=== PATIENT | female | born 1970 | race Hispanic/Latino ===

== ENCOUNTER 2021-04-13 05:10 | Emergency (ER) | payer MEDICAID ==
--- NOTE | 2021-04-13 06:29 | Emergency Department Report ---
HPI - General Chief Complaint: Psych Time Seen by Provider: 04/13/21 06:16 - HPI HPI: Room 15 The patient is a 50-year-old female present with chief complaint of schizophrenia. Patient has a history of bipolar disorder and schizophrenia presents to the emergency department reportedly having auditory hallucinations. The patient states she came into the emergency department because she has been coughing but during the interview she is having a conversation with a person that is not there. The patient covers her mouth when she speaks to the imagin anthony person as if she is trying to conceal her conversation but she speaks in a normal tone. Patient denies suicidal homicidal ideation. Patient denies auditory or visual hallucinations. ED Past Medical Hx - Past Medical History Hx Hypertension: Yes Hx Kidney Stones: Yes Hx Psychiatric Treatment: Yes (BIPOLAR, SCHIZOPHRENIA) - Surgical History Past Surgical History?: Yes Additional Surgical History: TUBAL LIGATION - Family History Family history: no significant - Social History Smoking Status: Unknown if ever smoked Substance Use Type: None - Medications Home Medications: Home Medications Medication Instructions Recorded Confirmed Last Taken Type Depakote ER 1,000 mg PO HS 04/02/16 04/14/21 04/01/16 History Quetiapine Fumarate [SEROquel XR] 400 mg PO QDAY 04/02/16 04/14/21 04/02/16 History ED Review of Systems ROS: Stated complaint: ALTERED MENTAL STATUS Other details as noted in HPI Constitutional: no symptoms reported Eyes: denies: eye pain ENT: denies: throat pain Respiratory: cough Cardiovascular: denies: chest pain Endocrine: no symptoms reported Gastrointestinal: denies: abdominal pain Musculoskeletal: denies: back pain Neurological: denies: headache Physical Exam - Physical Exam Vital Signs: Vital Signs 04/13/21 05:23 Temperature 97.5 F L Pulse Rate 100 H Respiratory 18 Rate Blood Pressure 133/81 O2 Sat by Pulse 95 Oximetry Physical Exam: GENERAL: The patient is well-developed well-nourished female lying in chair not appearing to be in acute distress. [] HEENT: Normocephalic. Atraumatic. Extraocular motions are intact. Patient has moist mucous membranes. NECK: Supple. Trachea midline CHEST/LUNGS: Clear to auscultation. There is no respiratory distress noted. HEART/CARDIOVASCULAR: Regular. There is no tachycardia. There is no gallop rub or murmur. ABDOMEN: Abdomen is soft, nontender. Patient has normal bowel sounds. There is no abdominal distention. SKIN: There is no rash. There is no edema. There is no diaphoresis. NEURO: The patient is awake, alert, and oriented. The patient is cooperative. The patient has no focal neurologic deficits. The patient has normal speech. GCS 15 MUSCULOSKELETAL: There is no evidence of acute injury. ED Course Vital Signs 04/13/21 05:23 Temperature 97.5 F L Pulse Rate 100 H Respiratory 18 Rate Blood Pressure 133/81 O2 Sat by Pulse 95 Oximetry ED Medical Decision Making - Lab Data Result diagrams: 04/13/21 07:32 04/13/21 07:32 Laboratory Tests 04/13/21 04/13/21 04/13/21 07:32 07:32 07:32 WBC 8.0 RBC 4.43 Hgb 13.2 Hct 39.7 MCV 90 MCH 30 MCHC 33 RDW 15.0 Plt Count 229 Lymph % (Auto) 25.9 [place] % (Auto) 7.9 H Eos % (Auto) 0.2 Baso % (Auto) 0.5 Lymph # (Auto) 2.1 [place] # (Auto) 0.6 Eos # (Auto) 0.0 Baso # (Auto) 0.0 Seg Neutrophils % 65.5 Seg Neutrophils # 5.2 Sodium 136 L Potassium 4.6 Chloride 97.1 L Carbon Dioxide 28 Anion Gap 16 BUN 27 H Creatinine 0.9 Estimated GFR > 60 BUN/Creatinine Ratio 30 Glucose 87 Calcium 9.4 Salicylates < 0.3 L Acetaminophen Valproic Acid < 2.8 L Plasma/Serum Alcohol 04/13/21 04/13/21 07:32 07:32 WBC RBC Hgb Hct MCV MCH MCHC RDW Plt Count Lymph % (Auto) [place] % (Auto) Eos % (Auto) Baso % (Auto) Lymph # (Auto) [place] # (Auto) Eos # (Auto) Baso # (Auto) Seg Neutrophils % Seg Neutrophils # Sodium Potassium Chloride Carbon Dioxide Anion Gap BUN Creatinine Estimated GFR BUN/Creatinine Ratio Glucose Calcium Salicylates Acetaminophen 5.0 L Valproic Acid Plasma/Serum Alcohol < 0.01 - Radiology Data Radiology results: report reviewed (Chest x-ray), image reviewed (Chest x-ray) interpreted by me: Chest x-ray-no definite focal infiltrates, no pneumothorax [address] [place] [address] XRay Report Signed Patient: URI DENNY MR#: [id number] : 1970 Acct:[id number] Age/Sex: 50 / F ADM Date: 04/13/21 Loc: ED Attending Dr: Ordering Physician: AYDE ROCHA MD Date of Service: 04/13/21 Procedure(s): XR chest 1V ap Accession Number(s): [id number] cc: AYDE ROCHA MD Fluoro Time In Minutes: CHEST 1 VIEW 04/13/2021 5:39 AM INDICATION / CLINICAL INFORMATION: Cough. Altered mental status. COMPARISON: None available. FINDINGS: Patient is slightly rotated to the left. SUPPORT DEVICES: None. HEART / MEDIASTINUM: No significant abnormality. LUNGS / PLEURA: No significant pulmonary or pleural abnormality. No pneumothorax. ADDITIONAL FINDINGS: No significant additional findings. IMPRESSION: 1. No acute findings. Signer Name: Chasity Balderrama MD Signed: 04/13/2021 6:46 AM Workstation Name: [id number] Transcribed By: DT Dictated By: Charles Balderrama MD Electronically Authenticated By: Charles Balderrama MD Signed Date/Time: 04/13/21645 DD/ 4 TD/TT: Print Cancel - Differential Diagnosis Schizophrenia, bronchitis Critical care attestation.: If time is entered above; I have spent that time in minutes in the direct care of this critically ill patient, excluding procedure time. ED Disposition Clinical Impression: Schizophrenia Disposition: ADMITTED INPATIENT Is pt being admited?: No Does the pt Need Aspirin: No Condition: Stable Referrals: PRIMARY CARE, [Primary Care Provider] - 3-5 Days
--- NOTE | 2021-04-13 06:50 | XRay Report ---
CHEST 1 VIEW 04/13/2021 5:39 AM INDICATION / CLINICAL INFORMATION: Cough. Altered mental status. COMPARISON: None available. FINDINGS: Patient is slightly rotated to the left. SUPPORT DEVICES: None. HEART / MEDIASTINUM: No significant abnormality. LUNGS / PLEURA: No significant pulmonary or pleural abnormality. No pneumothorax. ADDITIONAL FINDINGS: No significant additional findings. IMPRESSION: 1. No acute findings. Signer Name: Chasity Balderrama MD Signed: 04/13/2021 6:46 AM Workstation Name: [id number]
[2021-04-13 07:45] LABS: Basophils % (Auto) 0.5 % (0.0-1.8); Eosinophils % (Auto) 0.2 % (0.0-4.3); Hematocrit 39.7 % (30.3-42.9); Hemoglobin 13.2 gm/dl (10.1-14.3); Lymphocytes # (Auto) 2.1 K/mm3 (1.2-5.4); Lymphocytes % (Auto) 25.9 % (13.4-35.0); Mean Corpuscular HGB Conc 33 % (30-34); Mean Corpuscular Volume 90 fl (79-97); Monocytes # (Auto) 0.6 K/mm3 (0.0-0.8); Monocytes % (Auto) 7.9 % (0.0-7.3); Platelet Count 229 K/mm3 (140-440); Red Blood Count 4.43 M/mm3 (3.65-5.03)
[2021-04-13 08:06] LABS: BUN/Creatinine Ratio 30; Blood Urea Nitrogen 27 mg/dL (7-17); Calcium 9.4 mg/dL (8.4-10.2); Hemolysis Index 2
--- NOTE | 2021-04-13 10:28 | Consultation ---
History of Present Illness - Reason for Consult Consult date: 04/13/21 Reason for consult: psychosis - History of Present Psychiatric Illness The patient was seen today. She is jumpy, and appears very anxious. She is a/o x 1. The patient endorses SI by way of cutting her wrist. The patient then becomes agitated and starts talking angrily to people who are not there. She is covering her mouth as if trying to conceal it from me. PAST PSYCHIATRIC HISTORY: Diagnoses: Bipolar, schizophrenia Suicide attempts or Self-harm behavior: Denies Prior psychiatric hospitalizations: Yes Substance Abuse history: Denies Previous psychiatric medications tried: seroquel Outpatient treatment: Denies PAST MEDICAL HISTORY: None reported or document Family Psychiatric History: None reported or documented SOCIAL HISTORY Marital Status: Single Living Arrangements: Lives alone Employment Status: Disabled Access to guns/weapons: Denies Education: History of Abuse: Denies Legal History: Denies REVIEW OF SYSTEMS Constitutional: Negative for weight loss ENT: Negative for stridor Respiratory: Negative for cough or hemoptysis All other systems reviewed and are negative MENTAL STATUS EXAMINATION General Appearance and Behavior: Age appropriate, good hygiene, wearing appropriate clothes. anxious, cooperative Cooperation: cooperative Psychomotor Behavior: Psychomotor normal Mood: depressed Affect and affective range: congruent with stated mood Thought Process: illogical Thought Content: hallucinations, responding to internal stimuli Speech: Normal volume, Regular rate and rhythm, Suicidal Ideation: yes Homicidal Ideation: Denies Hallucinations: Auditory Delusions: none elicited Impulse Control: impaired Insight and Judgment: Limited Memory: limited Attention: Attentive Orientation: alert and oriented Assessment and Plan (1) Schizophrenia Treatment Plan [address] 125mg po BID Abilify 5mg po daily Vistaril 25mg po BID Sitter: per primary Medical: per primary Disposition: Recommend acute psychiatric inpatient treatment Will follow. Thanks for this consult. Case staffed with Dr. Sullivan Medications and Allergies Allergies Allergy/AdvReac Type Severity Reaction Status Date / Time acetaminophen [From Percocet] Allergy Unknown Verified 06/15/15 17:29 benztropine mesylate Allergy Unknown Verified 06/15/15 17:29 [From Cogentin] haloperidol [From Haldol] Allergy Unknown Verified 06/15/15 17:29 haloperidol lactate Allergy Unknown Verified 06/15/15 17:29 [From Haldol] oxycodone HCl [From Percocet] Allergy Unknown Verified 06/15/15 17:29 Home Medications Medication Instructions Recorded Confirmed Last Taken Type Depakote ER 1,000 mg PO HS 04/02/16 04/18/16 04/01/16 History Quetiapine Fumarate [SEROquel XR] 400 mg PO QDAY 04/02/16 04/18/16 04/02/16 History Mental Status Exam - Vital signs Last Vital Signs Temp 98.6 F 04/13/21 08:28 Pulse 80 04/13/21 08:28 Resp 18 04/13/21 08:28 BP 106/67 04/13/21 08:28 Pulse Ox 96 04/13/21 08:28 Results Result Diagrams: 04/13/21 07:32 04/13/21 07:32 Abnormal lab results 04/13/21 04/13/21 04/13/21 Range/Units 07:32 07:32 07:32 [place] % (Auto) 7.9 H (0.0-7.3) % Sodium 136 L (137-145) mmol/L Chloride 97.1 L (98-107) mmol/L BUN 27 H (7-17) mg/dL Salicylates < 0.3 L (2.8-20.0) mg/dL Acetaminophen (10.0-30.0) ug/mL Valproic Acid < 2.8 L (50-100) ug/mL 04/13/21 Range/Units 07:32 [place] % (Auto) (0.0-7.3) % Sodium (137-145) mmol/L Chloride (98-107) mmol/L BUN (7-17) mg/dL Salicylates (2.8-20.0) mg/dL Acetaminophen 5.0 L (10.0-30.0) ug/mL Valproic Acid (50-100) ug/mL All other labs normal.
[2021-04-13] MEDS ORDERED: ARIPiprazole 5 MG TAB PO SCH (11:00)
[2021-04-13] MEDS: DIVALPROEX DR 125 MG TAB PO SCH ×2 (13:17→22:45)
[2021-04-13] MEDS: hydrOXYzine PAMOATE 25 MG CAP PO SCH ×2 (13:17→22:46)
[2021-04-13 16:50] LABS: Bilirubin,Urine NEG (Negative); Blood,Urine NEG (Negative); Color,Urine Yellow (Yellow); Mucus,Urine FEW /HPF; Protein,Urine <15 mg/dL mg/dL (Negative); Urobilinogen,Urine < 2.0 mg/dL (<2.0)
[2021-04-13 16:57] LABS: Amphetamine Screen,Urine Negative; Benzodiazepines Screen,Urine Negative; Cannabinoid Screen,Urine Negative; Cocaine Screen,Urine Negative; Methadone Screen,Urine Negative; Opiate Screen,Urine Negative
[2021-04-13 19:59] VITALS: BP 116/68
== END 2021-04-13 23:14 | disposition admitted as inpatient to this hospital (09) ==
LOC: EEVIPCON 05:10 → ED 05:10
DX: F20.9 Schizophrenia, unspecified (principal); I10 Essential (primary) hypertension; Z87.442 Personal history of urinary calculi; Z20.822 Contact with and (suspected) exposure to COVID-19; Z79.899 Other long term (current) drug therapy
CPT/HCPCS: 36415; 71045; 80048; 80164; 80307; 81001; 85025; 99285; Q0177; U0003; 80320; G0480

== ENCOUNTER 2021-04-13 15:02 | Inpatient (IN) | payer MEDICAID ==
[2021-04-14 09:26] LABS: Eosinophils # (Auto) 0.1 K/mm3 (0.0-0.4); Eosinophils % (Auto) 1.8 % (0.0-4.3); Hematocrit 37.8 % (30.3-42.9); Hemoglobin 12.7 gm/dl (10.1-14.3); Lymphocytes # (Auto) 1.8 K/mm3 (1.2-5.4); Lymphocytes % (Auto) 50.6 % (13.4-35.0); Mean Corpuscular HGB Conc 34 % (30-34); Mean Corpuscular Volume 90 fl (79-97); Monocytes # (Auto) 0.3 K/mm3 (0.0-0.8); Platelet Count 197 K/mm3 (140-440); Red Blood Count 4.19 M/mm3 (3.65-5.03); Red Cell Distribution Width 14.7 % (13.2-15.2)
[2021-04-14 09:48] LABS: Alanine Aminotransferase 9 units/L (7-56); Albumin 3.9 g/dL (3.9-5); BUN/Creatinine Ratio 26; Blood Urea Nitrogen 21 mg/dL (7-17); Calcium 8.8 mg/dL (8.4-10.2); Chol/HDL Ratio 2.36 %; HDL Cholesterol 63 mg/dL (40-59); Hemolysis Index 11; LDL Cholesterol,Direct 75 mg/dL (50-130)
--- NOTE | 2021-04-14 12:11 | Consultation ---
History of Present Illness - Reason for Consult Consult date: 04/14/21 Medical management Requesting physician: APURVA MANDUJANO - History of Present Illness 50 YO Female with DM, Psychosis, LICHA, MDD admitted to [facility] for psychiatric stabilization. Consult placed by Dr. Mandujano for medical management. Patient seen and evaluated in the recreation room. Patient denies fever, chills, chest pain, palpitation, productive cough, skin rash, recent ill contact, or known exposure to COVID-19. No reported nursing events. Patient cooperative. Past History Past Medical History: diabetes, other (See HPI) Past Surgical History: No surgical history, Other (Reviewed) Social history: single. denies: smoking, alcohol abuse Family history: diabetes, hypertension Medications and Allergies Allergies Allergy/AdvReac Type Severity Reaction Status Date / Time acetaminophen [From Percocet] Allergy Unknown Verified 06/15/15 17:29 benztropine mesylate Allergy Unknown Verified 06/15/15 17:29 [From Cogentin] haloperidol [From Haldol] Allergy Unknown Verified 06/15/15 17:29 haloperidol lactate Allergy Unknown Verified 06/15/15 17:29 [From Haldol] oxycodone HCl [From Percocet] Allergy Unknown Verified 06/15/15 17:29 Home Medications Medication Instructions Recorded Confirmed Last Taken Type Depakote ER 1,000 mg PO HS 04/02/16 04/14/21 04/01/16 History Quetiapine Fumarate [SEROquel XR] 400 mg PO QDAY 04/02/16 04/14/21 04/02/16 History Review of Systems Constitutional: no weight gain, no fever, no chills Ears, nose, mouth and throat: no ear pain, no tinnitis, no nasal congestion Breasts: no change in shape, no mass Cardiovascular: no chest pain, no orthopnea, no palpitations, no rapid/irregular heart beat, no syncope Respiratory: no cough, no excessive sputum Gastrointestinal: no nausea, no diarrhea, no constipation Genitourinary Female: no pelvic pain, no flank pain, no dysuria, no urinary frequency, no stress incontinence Rectal: no pain, no incontinence, no bleeding Musculoskeletal: no neck stiffness, no shooting arm pain, no low back pain, no shooting leg pain Integumentary: no rash, no redness, no wounds Neurological: no head injury, no paralysis, no parathesias, no numbness, no seizures, no tremors Psychiatric: anxiety, depression, no change in sleep habits, no sleep disturbances, no insomnia Endocrine: no cold intolerance, no polyphagia, no polydipsia Hematologic/Lymphatic: no easy bruising, no easy bleeding, no lymphadenopathy, no lymphedema Allergic/Immunologic: no allergic rhinitis, no wheezing, no anaphylaxis, no a ngioedema Exam - Constitutional General appearance: Present: no acute distress, well-nourished - EENT Eyes: Present: PERRL ENT: hearing intact, clear oral mucosa - Neck Neck: Present: supple, normal ROM - Respiratory Respiratory effort: normal Respiratory: bilateral: CTA - Cardiovascular Heart Sounds: Present: S1 & S2. Absent: rub, click - Extremities Extremities: pulses symmetrical, No edema Peripheral Pulses: within normal limits - Abdominal General gastrointestinal: Present: soft, non-tender, non-distended, normal bowel sounds Female genitourinary: Present: normal - Integumentary Integumentary: Present: clear, warm, dry - Musculoskeletal Musculoskeletal: gait normal, strength equal bilaterally - Psychiatric Psychiatric: appropriate mood/affect, intact judgment & insight - Neurologic Neurologic: CNII-XII intact, moves all extremities Results - Labs CBC & Chem 7: 04/14/21 08:44 04/14/21 08:44 Labs: Abnormal lab results 04/14/21 04/14/21 Range/Units 08:44 08:44 WBC 3.6 L (4.5-11.0) K/mm3 Lymph % (Auto) 50.6 H (13.4-35.0) % Seg Neutrophils % 39.6 L (40.0-70.0) % Seg Neutrophils # 1.4 L (1.8-7.7) K/mm3 BUN 21 H (7-17) mg/dL Glucose 112 H (65-100) mg/dL HDL Cholesterol 63 H (40-59) mg/dL Assessment and Plan - Patient Problems (1) Diabetes Current Visit: Yes Status: Acute Plan to address problem: Consistent carbohydrate diet, patient is normoglycemic at this time. (2) Anxiety Current Visit: Yes Status: Acute Plan to address problem: Supportive care, benzodiazepine therapy as clinically indicated. (3) Depression Current Visit: Yes Status: Acute Plan to address problem: Supportive care, continue medical management. (4) Schizophrenia Current Visit: No Status: Acute Plan to address problem: Continue medical management. (5) Malnutrition Current Visit: Yes Status: Acute Qualifiers: Protein-calorie malnutrition severity: moderate Plan to address problem: Increase protein intake, dietary supplementation. (6) Advance care planning Current Visit: Yes Status: Acute Plan to address problem: Disease education conducted, care plan discussed, diagnoses discussed, prognosis discussed, patient full code, patient knowledges understanding agreement with care plan, patient counseled regarding increase protein intake. +30 minutes.
--- NOTE | 2021-04-14 12:58 | History and Physical Report ---
GP History & Physical - History of Present Illness Date of admission: 04/13/21 Date of Examination: 04/14/21 Reason for Admission: Danger to self, Failure of Outpatient Treatment, Severe anxiety/depression History of Present Illness: Trinidad Denny is a patient I first rounded on yesterday in the ER. During that time the patient was jumpy, and appears very anxious. She is a/o x 1. The patient endorses SI by way of cutting her wrist. The patient then becomes agitated and starts talking angrily to people who are not there. She is covering her mouth as if trying to conceal it from me. Today, during the patient's evaluation she is lying in bed. She says she still hearing voices and that's why she's lying in bed. The patient tells me that she only takes 600mg of Seroquel and it works for her but she had been off of them. She then turns around and starts fussing at someone who's not there. She denies SI/HI. But states the voices are telling her to hurt herself. PAST PSYCHIATRIC HISTORY: Diagnoses: Bipolar, schizophrenia Suicide attempts or Self-harm behavior: Denies Prior psychiatric hospitalizations: Yes Substance Abuse history: Denies Previous psychiatric medications tried: seroquel Outpatient treatment: Denies PAST MEDICAL HISTORY: None reported or document Family Psychiatric History: None reported or documented SOCIAL HISTORY Marital Status: Single Living Arrangements: Lives alone Employment Status: Disabled Access to guns/weapons: Denies Education: History of Abuse: Denies Legal History: Denies REVIEW OF SYSTEMS Constitutional: Negative for weight loss ENT: Negative for stridor Respiratory: Negative for cough or hemoptysis All other systems reviewed and are negative MENTAL STATUS EXAMINATION General Appearance and Behavior: Age appropriate, good hygiene, wearing appropriate clothes. anxious, cooperative Cooperation: cooperative Psychomotor Behavior: Psychomotor normal Mood: depressed Affect and affective range: congruent with stated mood Thought Process: illogical Thought Content: hallucinations, responding to internal stimuli Speech: Normal volume, Regular rate and rhythm, Suicidal Ideation: yes Homicidal Ideation: Denies Hallucinations: Auditory Delusions: none elicited Impulse Control: impaired Insight and Judgment: Limited Memory: limited Attention: Attentive Orientation: alert and oriented Assessment and Plan (1) Schizophrenia Treatment Plan Patient admitted for inpatient psychiatric evaluation, medication adjustment and close monitoring The patient's behavior, mood, sleep and appetite will be closely monitored. Patient enrolled in individual and group therapeutic sessions and encouraged to attend. Patient provided with a safe and structured environment. Patient's physical health needs will be addressed by the Hospitalist. Hosp italist Consulted Labs including CBC, CMP, Lipid profile and Hemoglobin A1C levels ordered for baseline reference Social Assessment will be completed and the Spraying Machine Operator will work with patient and family to ensure a suitable and safe disposition Medication adjustment will be made as clinically indicated Restarted home medications Usual Wellness Buddhist/Preservation: - Start Trazodone 50 mg po QHS & 50 mg po QHS PRN between 10 PM & 2 AM for insomnia - Start Melatonin 5 mg po QHS to promote circadian rhythm The patient agreed on the treatment plan, understood the risk, benefit, alternative treatment, potential consequence of no treatment, and gave informed consent. Estimated days:4 Post hospital care: primary care provider, psychiatric provider Case staffed with Dr. Sullivan Legal Status: Voluntary Reaction to Hospitalization: Accepting Medications and Allergies Allergies Allergy/AdvReac Type Severity Reaction Status Date / Time acetaminophen [From Percocet] Allergy Unknown Verified 06/15/15 17:29 benztropine mesylate Allergy Unknown Verified 06/15/15 17:29 [From Cogentin] haloperidol [From Haldol] Allergy Unknown Verified 06/15/15 17:29 haloperidol lactate Allergy Unknown Verified 06/15/15 17:29 [From Haldol] oxycodone HCl [From Percocet] Allergy Unknown Verified 06/15/15 17:29 Home Medications Medication Instructions Recorded Confirmed Last Taken Type Depakote ER 1,000 mg PO HS 04/02/16 04/14/21 04/01/16 History Quetiapine Fumarate [SEROquel XR] 400 mg PO QDAY 04/02/16 04/14/21 04/02/16 History Results - Results Labs/Vitals: Laboratory Last Values WBC 3.6 K/mm3 (4.5-11.0) L 04/14/21 08:44 RBC 4.19 M/mm3 (3.65-5.03) 04/14/21 08:44 Hgb 12.7 gm/dl (10.1-14.3) 04/14/21 08:44 Hct 37.8 % (30.3-42.9) 04/14/21 08:44 MCV 90 fl (79-97) 04/14/21 08:44 MCH 30 pg (28-32) 04/14/21 08:44 MCHC 34 % (30-34) 04/14/21 08:44 RDW 14.7 % (13.2-15.2) 04/14/21 08:44 Plt Count 197 K/mm3 (140-440) 04/14/21 08:44 Lymph % (Auto) 50.6 % (13.4-35.0) H 04/14/21 08:44 [place] % (Auto) 7.0 % (0.0-7.3) 04/14/21 08:44 Eos % (Auto) 1.8 % (0.0-4.3) 04/14/21 08:44 Baso % (Auto) 1.0 % (0.0-1.8) 04/14/21 08:44 Lymph # (Auto) 1.8 K/mm3 (1.2-5.4) 04/14/21 08:44 [place] # (Auto) 0.3 K/mm3 (0.0-0.8) 04/14/21 08:44 Eos # (Auto) 0.1 K/mm3 (0.0-0.4) 04/14/21 08:44 Baso # (Auto) 0.0 K/mm3 (0.0-0.1) 04/14/21 08:44 Seg Neutrophils % 39.6 % (40.0-70.0) L 04/14/21 08:44 Seg Neutrophils # 1.4 K/mm3 (1.8-7.7) L 04/14/21 08:44 Sodium 141 mmol/L (137-145) 04/14/21 08:44 Potassium 4.1 mmol/L (3.6-5.0) 04/14/21 08:44 Chloride 103.2 mmol/L (98-107) 04/14/21 08:44 Carbon Dioxide 27 mmol/L (22-30) 04/14/21 08:44 Anion Gap 15 mmol/L 04/14/21 08:44 BUN 21 mg/dL (7-17) H 04/14/21 08:44 Creatinine 0.8 mg/dL (0.6-1.2) 04/14/21 08:44 Estimated GFR > 60 ml/min 04/14/21 08:44 BUN/Creatinine Ratio 26 % 04/14/21 08:44 Glucose 112 mg/dL (65-100) H 04/14/21 08:44 POC Glucose 76 mg/dL (70-105) 04/14/21 11:41 Hemoglobin A1c 5.2 % (4-6) 04/14/21 08:44 Calcium 8.8 mg/dL (8.4-10.2) 04/14/21 08:44 Total Bilirubin 0.30 mg/dL (0.1-1.2) 04/14/21 08:44 AST 18 units/L (5-40) 04/14/21 08:44 ALT 9 units/L (7-56) 04/14/21 08:44 Alkaline Phosphatase 69 units/L (35-129) 04/14/21 08:44 Total Protein 6.5 g/dL (6.3-8.2) 04/14/21 08:44 Albumin 3.9 g/dL (3.9-5) 04/14/21 08:44 Albumin/Globulin Ratio 1.5 % 04/14/21 08:44 Triglycerides 60 mg/dL (2-149) 04/14/21 08:44 Cholesterol 149 mg/dL (50-199) 04/14/21 08:44 LDL Cholesterol Direct 75 mg/dL (50-130) 04/14/21 08:44 HDL Cholesterol 63 mg/dL (40-59) H 04/14/21 08:44 Cholesterol/HDL Ratio 2.36 % 04/14/21 08:44 TSH 0.871 mlU/mL (0.270-4.200) 04/14/21 08:44 Physician Certification - Certification Statement Physician Certification Statement: This is an acknowledgement statement that TRINIDAD DENNY is a 50 year old F who requires inpatient psychiatric admission for treatment which could reasonably be expected to improve the patient's condition for Estimated period of time patient will need to remain in the hospital: [ ] Plan for post-hospital care: [ ]
[2021-04-14] MEDS ORDERED: QUETIAPINE FUMARATE 400 MG PO SCH (13:15)
[2021-04-14] MEDS: QUEtiapine 200 MG TAB PO SCH (21:03)
[2021-04-14] MEDS: DIVALPROEX ER 500 MG TAB PO SCH (21:04)
[2021-04-14] MEDS ORDERED: DEPAKOTE PO SCH (22:00)
[2021-04-15] MEDS: QUEtiapine 200 MG TAB PO SCH (09:00)
--- NOTE | 2021-04-15 09:23 | Progress Note ---
Subjective Date of service: 04/15/21 Principal diagnosis: schizophrenia Subjective Comment: The patient was seen today. She says she's hearing voices telling her to kill herself. She says "that's why I stay in my room." The patient then starts angrily speaking to someone who's not there. She says "no, you did not. You didn't." REVIEW OF SYSTEMS Constitutional: Negative for weight loss ENT: Negative for stridor Respiratory: Negative for cough or hemoptysis All other systems reviewed and are negative MENTAL STATUS EXAMINATION General Appearance and Behavior: Age appropriate, good hygiene, wearing appropriate clothes. anxious, cooperative Cooperation: cooperative Psychomotor Behavior: Psychomotor normal Mood: depressed Affect and affective range: congruent with stated mood Thought Process: illogical Thought Content: hallucinations, responding to internal stimuli Speech: Normal volume, Regular rate and rhythm, Suicidal Ideation: yes Homicidal Ideation: Denies Hallucinations: Auditory Delusions: none elicited Impulse Control: impaired Insight and Judgment: Limited Memory: limited Attention: Attentive Orientation: alert and oriented Assessment and Plan (1) Schizophrenia Treatment Plan Patient admitted for inpatient psychiatric evaluation, medication adjustment and close monitoring The patient's behavior, mood, sleep and appetite will be closely monitored. Patient enrolled in individual and group therapeutic sessions and encouraged to attend. Patient provided with a safe and structured environment. Patient's physical health needs will be addressed by the Hospitalist. Hospitalist Consulted Labs including CBC, CMP, Lipid profile and Hemoglobin A1C levels ordered for baseline reference Social Assessment will be completed and the Director Housekeeping will work with patient and family to ensure a suitable and safe disposition Medication adjustment will be made as clinically indicated Started Seroquel 100mg qam in addition to night dose Usual Wellness Mu-Ism/Preservation: - Start Trazodone 50 mg po QHS & 50 mg po QHS PRN between 10 PM & 2 AM for insomnia - Start Melatonin 5 mg po QHS to promote circadian rhythm The patient agreed on the treatment plan, understood the risk, benefit, alternative treatment, potential consequence of no treatment, and gave informed consent. Estimated days:4 Post hospital care: primary care provider, psychiatric provider Case staffed with Dr. Sullivan Medications and Allergies Allergies Allergy/AdvReac Type Severity Reaction Status Date / Time acetaminophen [From Percocet] Allergy Unknown Verified 06/15/15 17:29 benztropine mesylate Allergy Unknown Verified 06/15/15 17:29 [From Cogentin] haloperidol [From Haldol] Allergy Unknown Verified 06/15/15 17:29 haloperidol lactate Allergy Unknown Verified 06/15/15 17:29 [From Haldol] oxycodone HCl [From Percocet] Allergy Unknown Verified 06/15/15 17:29 Home Medications Medication Instructions Recorded Confirmed Last Taken Type Depakote ER 1,000 mg PO HS 04/02/16 04/14/21 04/01/16 History Quetiapine Fumarate [SEROquel XR] 400 mg PO QDAY 04/02/16 04/14/21 04/02/16 History Active Meds: Active Medications Divalproex Sodium (Divalproex Er 500 Mg Tab) 1,000 mg PO HS [facility] Last Admin: 04/14/21 21:04 Dose: 1,000 mg Documented by: Quetiapine Fumarate (Quetiapine 200 Mg Tab) 200 mg PO BID MICHELLE Last Admin: 04/14/21 21:03 Dose: 200 mg Documented by: Results - Results Labs/Vitals: Laboratory Last Values WBC 3.6 K/mm3 (4.5-11.0) L 04/14/21 08:44 RBC 4.19 M/mm3 (3.65-5.03) 04/14/21 08:44 Hgb 12.7 gm/dl (10.1-14.3) 04/14/21 08:44 Hct 37.8 % (30.3-42.9) 04/14/21 08:44 MCV 90 fl (79-97) 04/14/21 08:44 MCH 30 pg (28-32) 04/14/21 08:44 MCHC 34 % (30-34) 04/14/21 08:44 RDW 14.7 % (13.2-15.2) 04/14/21 08:44 Plt Count 197 K/mm3 (140-440) 04/14/21 08:44 Lymph % (Auto) 50.6 % (13.4-35.0) H 04/14/21 08:44 [place] % (Auto) 7.0 % (0.0-7.3) 04/14/21 08:44 Eos % (Auto) 1.8 % (0.0-4.3) 04/14/21 08:44 Baso % (Auto) 1.0 % (0.0-1.8) 04/14/21 08:44 Lymph # (Auto) 1.8 K/mm3 (1.2-5.4) 04/14/21 08:44 Trinity # (Auto) 0.3 K/mm3 (0.0-0.8) 04/14/21 08:44 Eos # (Auto) 0.1 K/mm3 (0.0-0.4) 04/14/21 08:44 Baso # (Auto) 0.0 K/mm3 (0.0-0.1) 04/14/21 08:44 Seg Neutrophils % 39.6 % (40.0-70.0) L 04/14/21 08:44 Seg Neutrophils # 1.4 K/mm3 (1.8-7.7) L 04/14/21 08:44 Sodium 141 mmol/L (137-145) 04/14/21 08:44 Potassium 4.1 mmol/L (3.6-5.0) 04/14/21 08:44 Chloride 103.2 mmol/L (98-107) 04/14/21 08:44 Carbon Dioxide 27 mmol/L (22-30) 04/14/21 08:44 Anion Gap 15 mmol/L 04/14/21 08:44 BUN 21 mg/dL (7-17) H 04/14/21 08:44 Creatinine 0.8 mg/dL (0.6-1.2) 04/14/21 08:44 Estimated GFR > 60 ml/min 04/14/21 08:44 BUN/Creatinine Ratio 26 % 04/14/21 08:44 Glucose 112 mg/dL (65-100) H 04/14/21 08:44 POC Glucose 91 mg/dL (70-105) 04/14/21 20:05 Hemoglobin A1c 5.2 % (4-6) 04/14/21 08:44 Calcium 8.8 mg/dL (8.4-10.2) 04/14/21 08:44 Total Bilirubin 0.30 mg/dL (0.1-1.2) 04/14/21 08:44 AST 18 units/L (5-40) 04/14/21 08:44 ALT 9 units/L (7-56) 04/14/21 08:44 Alkaline Phosphatase 69 units/L (35-129) 04/14/21 08:44 Total Protein 6.5 g/dL (6.3-8.2) 04/14/21 08:44 Albumin 3.9 g/dL (3.9-5) 04/14/21 08:44 Albumin/Globulin Ratio 1.5 % 04/14/21 08:44 Triglycerides 60 mg/dL (2-149) 04/14/21 08:44 Cholesterol 149 mg/dL (50-199) 04/14/21 08:44 LDL Cholesterol Direct 75 mg/dL (50-130) 04/14/21 08:44 HDL Cholesterol 63 mg/dL (40-59) H 04/14/21 08:44 Cholesterol/HDL Ratio 2.36 % 04/14/21 08:44 TSH 0.871 mlU/mL (0.270-4.200) 04/14/21 08:44 Last Vital Signs Temp 97.9 F 04/14/21 22:00 Pulse 63 04/14/21 22:00 Resp 16 04/14/21 22:00 BP 143/64 04/14/21 22:00 Pulse Ox 98 04/14/21 22:00
[2021-04-15] MEDS: QUEtiapine 100 MG TAB PO SCH ×2 (12:44→21:02)
--- NOTE | 2021-04-15 19:36 | Progress Note ---
Assessment and Plan - Patient Problems (1) Diabetes Current Visit: Yes Status: Acute Plan to address problem: Consistent carbohydrate diet, patient is normoglycemic at this time. (2) Anxiety Current Visit: Yes Status: Acute Plan to address problem: Supportive care, benzodiazepine therapy as clinically indicated. (3) Depression Current Visit: Yes Status: Acute Plan to address problem: Supportive care, continue medical management. (4) Schizophrenia Current Visit: No Status: Acute Plan to address problem: Continue medical management. (5) Malnutrition Current Visit: Yes Status: Acute Qualifiers: Protein-calorie malnutrition severity: moderate Plan to address problem: Increase protein intake, dietary supplementation. (6) Advance care planning Current Visit: Yes Status: Acute Plan to address problem: Disease education conducted, care plan discussed, diagnoses discussed, prognosis discussed, patient full code, patient knowledges understanding agreement with care plan, patient counseled regarding increase protein intake. +30 minutes. History Interval history: 50 YO Female with DM, Psychosis, LICHA, MDD admitted to [facility] for psychiatric stabilization. Patient seen and evaluated in the recreation room. Patient denies pain. No reported nursing events. Patient cooperative. Hospitalist Physical - Constitutional Vitals: Temp Pulse Resp BP Pulse Ox 97.9 F 63 16 143/64 98 04/14/21 22:00 04/14/21 22:00 04/14/21 22:00 04/14/21 22:00 04/14/21 22:00 General appearance: Present: no acute distress, well-nourished - EENT Eyes: Present: PERRL ENT: hearing intact - Neck Neck: Present: supple - Respiratory Respiratory effort: normal Respiratory: bilateral: CTA - Cardiovascular Rhythm: regular Heart Sounds: Present: S1 & S2 - Extremities Extremities: no ischemia Peripheral Pulses: within normal limits - Abdominal General gastrointestinal: soft, non-tender, non-distended - Integumentary Integumentary: Present: clear, dry - Psychiatric Psychiatric: cooperative - Neurologic Neurologic: CNII-XII intact Results - Labs CBC & Chem 7: 04/14/21 08:44 04/14/21 08:44 Labs: Laboratory Last Values WBC 3.6 K/mm3 (4.5-11.0) L 04/14/21 08:44 RBC 4.19 M/mm3 (3.65-5.03) 04/14/21 08:44 Hgb 12.7 gm/dl (10.1-14.3) 04/14/21 08:44 Hct 37.8 % (30.3-42.9) 04/14/21 08:44 MCV 90 fl (79-97) 04/14/21 08:44 MCH 30 pg (28-32) 04/14/21 08:44 MCHC 34 % (30-34) 04/14/21 08:44 RDW 14.7 % (13.2-15.2) 04/14/21 08:44 Plt Count 197 K/mm3 (140-440) 04/14/21 08:44 Lymph % (Auto) 50.6 % (13.4-35.0) H 04/14/21 08:44 Mower % (Auto) 7.0 % (0.0-7.3) 04/14/21 08:44 Eos % (Auto) 1.8 % (0.0-4.3) 04/14/21 08:44 Baso % (Auto) 1.0 % (0.0-1.8) 04/14/21 08:44 Lymph # (Auto) 1.8 K/mm3 (1.2-5.4) 04/14/21 08:44 Mower # (Auto) 0.3 K/mm3 (0.0-0.8) 04/14/21 08:44 Eos # (Auto) 0.1 K/mm3 (0.0-0.4) 04/14/21 08:44 Baso # (Auto) 0.0 K/mm3 (0.0-0.1) 04/14/21 08:44 Seg Neutrophils % 39.6 % (40.0-70.0) L 04/14/21 08:44 Seg Neutrophils # 1.4 K/mm3 (1.8-7.7) L 04/14/21 08:44 Sodium 141 mmol/L (137-145) 04/14/21 08:44 Potassium 4.1 mmol/L (3.6-5.0) 04/14/21 08:44 Chloride 103.2 mmol/L (98-107) 04/14/21 08:44 Carbon Dioxide 27 mmol/L (22-30) 04/14/21 08:44 Anion Gap 15 mmol/L 04/14/21 08:44 BUN 21 mg/dL (7-17) H 04/14/21 08:44 Creatinine 0.8 mg/dL (0.6-1.2) 04/14/21 08:44 Estimated GFR > 60 ml/min 04/14/21 08:44 BUN/Creatinine Ratio 26 % 04/14/21 08:44 Glucose 112 mg/dL (65-100) H 04/14/21 08:44 POC Glucose 91 mg/dL (70-105) 04/14/21 20:05 Hemoglobin A1c 5.2 % (4-6) 04/14/21 08:44 Calcium 8.8 mg/dL (8.4-10.2) 04/14/21 08:44 Total Bilirubin 0.30 mg/dL (0.1-1.2) 04/14/21 08:44 AST 18 units/L (5-40) 04/14/21 08:44 ALT 9 units/L (7-56) 04/14/21 08:44 Alkaline Phosphatase 69 units/L (35-129) 04/14/21 08:44 Total Protein 6.5 g/dL (6.3-8.2) 04/14/21 08:44 Albumin 3.9 g/dL (3.9-5) 04/14/21 08:44 Albumin/Globulin Ratio 1.5 % 04/14/21 08:44 Triglycerides 60 mg/dL (2-149) 04/14/21 08:44 Cholesterol 149 mg/dL (50-199) 04/14/21 08:44 LDL Cholesterol Direct 75 mg/dL (50-130) 04/14/21 08:44 HDL Cholesterol 63 mg/dL (40-59) H 04/14/21 08:44 Cholesterol/HDL Ratio 2.36 % 04/14/21 08:44 TSH 0.871 mlU/mL (0.270-4.200) 04/14/21 08:44 Lopez/IV: Voiding Method Toilet Active Medications - Current Medications Current Medications: Generic Name Dose Route Start Last Admin Trade Name Freq PRN Reason Stop Dose Admin Divalproex Sodium 1,000 mg 04/14/21 22:00 04/14/21 21:04 Divalproex Er 500 Mg Tab PO 1,000 mg HS MICHELLE Administration Quetiapine Fumarate 100 mg 04/15/21 10:00 04/15/21 12:44 Quetiapine 100 Mg Tab PO 100 mg QAM MICHELLE Administration Quetiapine Fumarate 300 mg 04/15/21 22:00 Quetiapine 100 Mg Tab PO BID MICHELLE Nutrition/Malnutrition Assess - Dietary Evaluation Nutrition/Malnutrition Findings: Nutrition Notes Start: 04/14/21 12:47 Freq: Status: Active Protocol: Document 04/14/21 12:47 GB (Rec: 04/14/21 12:57 GB [email or web address]) Nutrition Notes Need for Assessment generated from: Low BMI Initial or Follow up Assessment Other Pertinent Diagnosis protective oversight adjustment & stabilization of meds/mood/behavior Current Diet Regular Labs/Tests 04/14: glucose 112, BUN 21 Pertinent Medications no meds listed at time of assessment Height 5 ft 3 in Weight 47.2 kg [place] Body Weight (kg) 52.27 BMI 18.4 Intake Prior to Admission Good Weight change and time frame admit weight recorded. NO reported significant weight changes upon admission. Weight Status Appropriate Subjective/Other Information Pt seen for low BMI 18.4. She is 90% IBW. no reported weight loss. PO intake recorded at 100%, no chewing or swallowing concerns indicated Percent of energy/protein needs met: With current PO intake 75% or greater of minimal EEN are met Burn Absent Trauma Absent GI Symptoms None Food Allergy No Skin Integrity/Comment no complications reported Current % PO Good (75-100%) Minimum of two criteria No #1 Nutrition Diagnosis No nutrition diagnosis at this time Is patient on ventilator? No Is Patient Ambulatory and/or Out of Bed Yes REE-([facility]-ambulatory/OOB) [ [id number] [id number]] Calculation Used for Recommendations [facility] Additional Notes Protein: 1-1.2 g/kg at 47k-57g Fluids: 1 ml/kcal or per MD Nutrition Intervention Change Diet Order: continue Nutrition Support: n/a Add Supplement/Snack (indicate name/kcal PRN /protein ) Goal #1 PO intake of meals to continue at 75% or greater daily for LOS Revisit per MD consult or patient Sign Off request:
[2021-04-15] MEDS: DIVALPROEX ER 500 MG TAB PO SCH (21:01)
--- NOTE | 2021-04-16 07:41 | Progress Note ---
Subjective Date of service: 04/16/21 Principal diagnosis: schizophrenia Subjective Comment: 04/16/21: The patient presents with psychosis, she was seen responding to internal stimuli. REVIEW OF SYSTEMS Constitutional: Negative for weight loss ENT: Negative for stridor Respiratory: Negative for cough or hemoptysis All other systems reviewed and are negative MENTAL STATUS EXAMINATION General Appearance and Behavior: Age appropriate, good hygiene, wearing appropriate clothes. anxious, cooperative Cooperation: cooperative Psychomotor Behavior: Psychomotor normal Mood: Hallucinations Affect and affective range: congruent with stated mood Thought Process: illogical Thought Content: hallucinations, responding to internal stimuli Speech: Normal volume, pressured Suicidal Ideation: Unable to assess Homicidal Ideation: Denies Hallucinations: Auditory Delusions: none elicited Impulse Control: impaired Insight and Judgment: Limited Memory: limited Attention: Attentive Orientation: alert and oriented Assessment and Plan (1) Schizophrenia Treatment Plan Patient admitted for inpatient psychiatric evaluation, medication adjustment and close monitoring The patient's behavior, mood, sleep and appetite will be closely monitored. Patient enrolled in individual and group therapeutic sessions and encouraged to attend. Patient provided with a safe and structured environment. Patient's physical health needs will be addressed by the Hospitalist. Hospitalist Consulted Labs including CBC, CMP, Lipid profile and Hemoglobin A1C levels ordered for baseline reference Social Assessment will be completed and the Financial Assistance Advisor will work with patient and family to ensure a suitable and safe disposition Medication adjustment will be made as clinically indicated Started Seroquel 100mg qam in addition to night dose Usual Wellness Synagogue/Preservation: - Start Trazodone 50 mg po QHS & 50 mg po QHS PRN between 10 PM & 2 AM for insomnia - Start Melatonin 5 mg po QHS to promote circadian rhythm The patient agreed on the treatment plan, understood the risk, benefit, alternative treatment, potential consequence of no treatment, and gave informed consent. Estimated days:4 Post hospital care: primary care provider, psychiatric provider Case staffed with Dr. Sullivan Medications and Allergies Medications and Allergies Allergies Allergy/AdvReac Type Severity Reaction Status Date / Time acetaminophen [From Percocet] Allergy Unknown Verified 06/15/15 17:29 benztropine mesylate Allergy Unknown Verified 06/15/15 17:29 [From Cogentin] haloperidol [From Haldol] Allergy Unknown Verified 06/15/15 17:29 haloperidol lactate Allergy Unknown Verified 06/15/15 17:29 [From Haldol] oxycodone HCl [From Percocet] Allergy Unknown Verified 06/15/15 17:29 Home Medications Medication Instructions Recorded Confirmed Last Taken Type Depakote ER 1,000 mg PO HS 04/02/16 04/14/21 04/01/16 History Quetiapine Fumarate [SEROquel XR] 400 mg PO QDAY 04/02/16 04/14/21 04/02/16 History Active Meds: Active Medications Divalproex Sodium (Divalproex Er 500 Mg Tab) 1,000 mg PO [facility] Last Admin: 04/15/21 21:01 Dose: 1,000 mg Documented by: Quetiapine Fumarate (Quetiapine 100 Mg Tab) 100 mg PO QAM [facility] Last Admin: 04/15/21 12:44 Dose: 100 mg Documented by: Quetiapine Fumarate (Quetiapine 100 Mg Tab) 300 mg PO BID [facility] Last Admin: 04/15/21 21:02 Dose: 300 mg Documented by: Results - Results Labs/Vitals: Laboratory Last Values WBC 3.6 K/mm3 (4.5-11.0) L 04/14/21 08:44 RBC 4.19 M/mm3 (3.65-5.03) 04/14/21 08:44 Hgb 12.7 gm/dl (10.1-14.3) 04/14/21 08:44 Hct 37.8 % (30.3-42.9) 04/14/21 08:44 MCV 90 fl (79-97) 04/14/21 08:44 MCH 30 pg (28-32) 04/14/21 08:44 MCHC 34 % (30-34) 04/14/21 08:44 RDW 14.7 % (13.2-15.2) 04/14/21 08:44 Plt Count 197 K/mm3 (140-440) 04/14/21 08:44 Lymph % (Auto) 50.6 % (13.4-35.0) H 04/14/21 08:44 Jack % (Auto) 7.0 % (0.0-7.3) 04/14/21 08:44 Eos % (Auto) 1.8 % (0.0-4.3) 04/14/21 08:44 Baso % (Auto) 1.0 % (0.0-1.8) 04/14/21 08:44 Lymph # (Auto) 1.8 K/mm3 (1.2-5.4) 04/14/21 08:44 Jack # (Auto) 0.3 K/mm3 (0.0-0.8) 04/14/21 08:44 Eos # (Auto) 0.1 K/mm3 (0.0-0.4) 04/14/21 08:44 Baso # (Auto) 0.0 K/mm3 (0.0-0.1) 04/14/21 08:44 Seg Neutrophils % 39.6 % (40.0-70.0) L 04/14/21 08:44 Seg Neutrophils # 1.4 K/mm3 (1.8-7.7) L 04/14/21 08:44 Sodium 141 mmol/L (137-145) 04/14/21 08:44 Potassium 4.1 mmol/L (3.6-5.0) 04/14/21 08:44 Chloride 103.2 mmol/L (98-107) 04/14/21 08:44 Carbon Dioxide 27 mmol/L (22-30) 04/14/21 08:44 Anion Gap 15 mmol/L 04/14/21 08:44 BUN 21 mg/dL (7-17) H 04/14/21 08:44 Creatinine 0.8 mg/dL (0.6-1.2) 04/14/21 08:44 Estimated GFR > 60 ml/min 04/14/21 08:44 BUN/Creatinine Ratio 26 % 04/14/21 08:44 Glucose 112 mg/dL (65-100) H 04/14/21 08:44 POC Glucose 91 mg/dL (70-105) 04/14/21 20:05 Hemoglobin A1c 5.2 % (4-6) 04/14/21 08:44 Calcium 8.8 mg/dL (8.4-10.2) 04/14/21 08:44 Total Bilirubin 0.30 mg/dL (0.1-1.2) 04/14/21 08:44 AST 18 units/L (5-40) 04/14/21 08:44 ALT 9 units/L (7-56) 04/14/21 08:44 Alkaline Phosphatase 69 units/L (35-129) 04/14/21 08:44 Total Protein 6.5 g/dL (6.3-8.2) 04/14/21 08:44 Albumin 3.9 g/dL (3.9-5) 04/14/21 08:44 Albumin/Globulin Ratio 1.5 % 04/14/21 08:44 Triglycerides 60 mg/dL (2-149) 04/14/21 08:44 Cholesterol 149 mg/dL (50-199) 04/14/21 08:44 LDL Cholesterol Direct 75 mg/dL (50-130) 04/14/21 08:44 HDL Cholesterol 63 mg/dL (40-59) H 04/14/21 08:44 Cholesterol/HDL Ratio 2.36 % 04/14/21 08:44 TSH 0.871 mlU/mL (0.270-4.200) 04/14/21 08:44 Last Vital Signs Temp 98.5 F 04/15/21 20:03 Pulse 71 04/15/21 19:54 Resp 17 04/15/21 20:03 BP 110/75 04/15/21 20:03 Pulse Ox 95 04/15/21 19:54
[2021-04-16] MEDS: QUEtiapine 100 MG TAB PO SCH ×3 (11:09→21:13)
[2021-04-16] MEDS: DIVALPROEX ER 500 MG TAB PO SCH (21:13)
[2021-04-16] MEDS ORDERED: QUEtiapine 100 MG TAB PO SCH (22:00)
[2021-04-17] MEDS: QUEtiapine 100 MG TAB PO SCH ×2 (11:17→21:41)
--- NOTE | 2021-04-17 11:21 | Progress Note ---
Subjective Date of service: 04/17/21 Principal diagnosis: schizophrenia Subjective Comment: 04/16/21: The patient presents with psychosis, she was seen responding to internal stimuli. 04/17/2021: The patient was seen pacing and sometimes loud , she continues to be psychotic. REVIEW OF SYSTEMS Constitutional: Negative for weight loss ENT: Negative for stridor Respiratory: Negative for cough or hemoptysis All other systems reviewed and are negative MENTAL STATUS EXAMINATION General Appearance and Behavior: Age appropriate, good hygiene, wearing appropriate clothes. anxious, cooperative Cooperation: cooperative Psychomotor Behavior: Psychomotor normal Mood: Hallucinations Affect and affective range: congruent with stated mood Thought Process: illogical Thought Content: hallucinations, responding to internal stimuli Speech: Normal volume, pressured Suicidal Ideation: Unable to assess Homicidal Ideation: Denies Hallucinations: Auditory Delusions: none elicited Impulse Control: impaired Insight and Judgment: Limited Memory: limited Attention: Attentive Orientation: alert and oriented Assessment and Plan (1) Schizophrenia Treatment Plan Patient admitted for inpatient psychiatric evaluation, medication adjustment and close monitoring The patient's behavior, mood, sleep and appetite will be closely monitored. Patient enrolled in individual and group therapeutic sessions and encouraged to attend. Patient provided with a safe and structured environment. Patient's physical health needs will be addressed by the Hospitalist. Hospitalist Consulted Labs including CBC, CMP, Lipid profile and Hemoglobin A1C levels ordered for baseline reference Social Assessment will be completed and the Measuring Machine Tender will work with patient and family to ensure a suitable and safe disposition Medication adjustment will be made as clinically indicated Started Seroquel 100mg qam in addition to night dose Usual Wellness Anabaptism/Preservation: - Start Trazodone 50 mg po QHS & 50 mg po QHS PRN between 10 PM & 2 AM for insomnia - Start Melatonin 5 mg po QHS to promote circadian rhythm The patient agreed on the treatment plan, understood the risk, benefit, alternative treatment, potential consequence of no treatment, and gave informed consent. Estimated days:4 Post hospital care: primary care provider, psychiatric provider Case staffed with Dr. Sullivan Medications and Allergies Medications and Allergies Allergies Allergy/AdvReac Type Severity Reaction Status Date / Time acetaminophen [From Percocet] Allergy Unknown Verified 06/15/15 17:29 benztropine mesylate Allergy Unknown Verified 06/15/15 17:29 [From Cogentin] haloperidol [From Haldol] Allergy Unknown Verified 06/15/15 17:29 haloperidol lactate Allergy Unknown Verified 06/15/15 17:29 [From Haldol] oxycodone HCl [From Percocet] Allergy Unknown Verified 06/15/15 17:29 Home Medications Medication Instructions Recorded Confirmed Last Taken Type Depakote ER 1,000 mg PO HS 04/02/16 04/14/21 04/01/16 History Quetiapine Fumarate [SEROquel XR] 400 mg PO QDAY 04/02/16 04/14/21 04/02/16 History Active Meds: Active Medications Divalproex Sodium (Divalproex Er 500 Mg Tab) 1,000 mg PO [facility] Last Admin: 04/16/21 21:13 Dose: 1,000 mg Documented by: Quetiapine Fumarate (Quetiapine 100 Mg Tab) 300 mg PO BID [facility] Last Admin: 04/17/21 11:17 Dose: 300 mg Documented by: Quetiapine Fumarate (Quetiapine 100 Mg Tab) 100 mg PO QHS [facility] Last Admin: 04/16/21 21:14 Dose: 100 mg Documented by: Results - Results Labs/Vitals: Laboratory Last Values WBC 3.6 K/mm3 (4.5-11.0) L 04/14/21 08:44 RBC 4.19 M/mm3 (3.65-5.03) 04/14/21 08:44 Hgb 12.7 gm/dl (10.1-14.3) 04/14/21 08:44 Hct 37.8 % (30.3-42.9) 04/14/21 08:44 MCV 90 fl (79-97) 04/14/21 08:44 MCH 30 pg (28-32) 04/14/21 08:44 MCHC 34 % (30-34) 04/14/21 08:44 RDW 14.7 % (13.2-15.2) 04/14/21 08:44 Plt Count 197 K/mm3 (140-440) 04/14/21 08:44 Lymph % (Auto) 50.6 % (13.4-35.0) H 04/14/21 08:44 Luce % (Auto) 7.0 % (0.0-7.3) 04/14/21 08:44 Eos % (Auto) 1.8 % (0.0-4.3) 04/14/21 08:44 Baso % (Auto) 1.0 % (0.0-1.8) 04/14/21 08:44 Lymph # (Auto) 1.8 K/mm3 (1.2-5.4) 04/14/21 08:44 Luce # (Auto) 0.3 K/mm3 (0.0-0.8) 04/14/21 08:44 Eos # (Auto) 0.1 K/mm3 (0.0-0.4) 04/14/21 08:44 Baso # (Auto) 0.0 K/mm3 (0.0-0.1) 04/14/21 08:44 Seg Neutrophils % 39.6 % (40.0-70.0) L 04/14/21 08:44 Seg Neutrophils # 1.4 K/mm3 (1.8-7.7) L 04/14/21 08:44 Sodium 141 mmol/L (137-145) 04/14/21 08:44 Potassium 4.1 mmol/L (3.6-5.0) 04/14/21 08:44 Chloride 103.2 mmol/L (98-107) 04/14/21 08:44 Carbon Dioxide 27 mmol/L (22-30) 04/14/21 08:44 Anion Gap 15 mmol/L 04/14/21 08:44 BUN 21 mg/dL (7-17) H 04/14/21 08:44 Creatinine 0.8 mg/dL (0.6-1.2) 04/14/21 08:44 Estimated GFR > 60 ml/min 04/14/21 08:44 BUN/Creatinine Ratio 26 % 04/14/21 08:44 Glucose 112 mg/dL (65-100) H 04/14/21 08:44 POC Glucose 91 mg/dL (70-105) 04/14/21 20:05 Hemoglobin A1c 5.2 % (4-6) 04/14/21 08:44 Calcium 8.8 mg/dL (8.4-10.2) 04/14/21 08:44 Total Bilirubin 0.30 mg/dL (0.1-1.2) 04/14/21 08:44 AST 18 units/L (5-40) 04/14/21 08:44 ALT 9 units/L (7-56) 04/14/21 08:44 Alkaline Phosphatase 69 units/L (35-129) 04/14/21 08:44 Total Protein 6.5 g/dL (6.3-8.2) 04/14/21 08:44 Albumin 3.9 g/dL (3.9-5) 04/14/21 08:44 Albumin/Globulin Ratio 1.5 % 04/14/21 08:44 Triglycerides 60 mg/dL (2-149) 04/14/21 08:44 Cholesterol 149 mg/dL (50-199) 04/14/21 08:44 LDL Cholesterol Direct 75 mg/dL (50-130) 04/14/21 08:44 HDL Cholesterol 63 mg/dL (40-59) H 04/14/21 08:44 Cholesterol/HDL Ratio 2.36 % 04/14/21 08:44 TSH 0.871 mlU/mL (0.270-4.200) 04/14/21 08:44 Last Vital Signs Temp 98.0 F 04/16/21 23:51 Pulse 73 04/16/21 23:51 Resp 12 04/16/21 23:51 BP 95/78 04/16/21 23:51 Pulse Ox 98 04/16/21 23:51
[2021-04-17] MEDS ORDERED: ZIPRASIDONE 20 MG CAP PO SCH ×2 (12:00)
[2021-04-17] MEDS: DIVALPROEX DR 500 MG TAB PO SCH (13:35)
[2021-04-17] MEDS: DIVALPROEX ER 500 MG TAB PO SCH (21:41)
--- NOTE | 2021-04-18 07:28 | Progress Note ---
Subjective Date of service: 04/18/21 Principal diagnosis: schizophrenia Subjective Comment: 04/16/21: The patient presents with psychosis, she was seen responding to internal stimuli. 04/17/2021: The patient was seen pacing and sometimes loud , she continues to be psychotic. 04/18/21: The patient was seen pacing and sometimes loud but redirectable. Per nurse "Pt slept approximately 8 hours during this shift. Awake & alert this am. Started her wandering rambling." REVIEW OF SYSTEMS Constitutional: Negative for weight loss ENT: Negative for stridor Respiratory: Negative for cough or hemoptysis All other systems reviewed and are negative MENTAL STATUS EXAMINATION General Appearance and Behavior: Age appropriate, good hygiene, wearing appropriate clothes. anxious, cooperative Cooperation: cooperative Psychomotor Behavior: Psychomotor normal Mood: Hallucinations Affect and affective range: congruent with stated mood Thought Process: illogical Thought Content: hallucinations, responding to internal stimuli Speech: Normal volume, pressured Suicidal Ideation: Unable to assess Homicidal Ideation: Denies Hallucinations: Auditory Delusions: none elicited Impulse Control: impaired Insight and Judgment: Limited Memory: limited Attention: Attentive Orientation: alert and oriented Assessment and Plan (1) Schizophrenia Treatment Plan Patient admitted for inpatient psychiatric evaluation, medication adjustment and close monitoring The patient's behavior, mood, sleep and appetite will be closely monitored. Patient enrolled in individual and group therapeutic sessions and encouraged to attend. Patient provided with a safe and structured environment. Patient's physical health needs will be addressed by the Hospitalist. Hospitalist Consulted Labs including CBC, CMP, Lipid profile and Hemoglobin A1C levels ordered for baseline reference Social Assessment will be completed and the Flower Machine Operator will work with patient and family to ensure a suitable and safe disposition Medication adjustment will be made as clinically indicated Start Geodon 40mg po daily Start Benztropine 0.5mg po BID Usual Wellness [facility]: - Start Trazodone 50 mg po QHS & 50 mg po QHS PRN between 10 PM & 2 AM for insomnia - Start Melatonin 5 mg po QHS to promote circadian rhythm The patient agreed on the treatment plan, understood the risk, benefit, alternative treatment, potential consequence of no treatment, and gave informed consent. Estimated days:3 Post hospital care: primary care provider, psychiatric provider Case staffed with Dr. Sullivan Medications and Allergies Medications and Allergies Allergies Allergy/AdvReac Type Severity Reaction Status Date / Time acetaminophen [From Percocet] Allergy Unknown Verified 06/15/15 17:29 benztropine mesylate Allergy Unknown Verified 06/15/15 17:29 [From Cogentin] haloperidol [From Haldol] Allergy Unknown Verified 06/15/15 17:29 haloperidol lactate Allergy Unknown Verified 06/15/15 17:29 [From Haldol] oxycodone HCl [From Percocet] Allergy Unknown Verified 06/15/15 17:29 Home Medications Medication Instructions Recorded Confirmed Last Taken Type Depakote ER 1,000 mg PO HS 04/02/16 04/14/21 04/01/16 History Quetiapine Fumarate [SEROquel XR] 400 mg PO QDAY 04/02/16 04/14/21 04/02/16 History Active Meds: Active Medications Divalproex Sodium (Divalproex Er 500 Mg Tab) 1,000 mg PO HS [facility] Last Admin: 04/17/21 21:41 Dose: 1,000 mg Documented by: Divalproex Sodium (Divalproex Dr 500 Mg Tab) 500 mg PO DAILY [facility] Last Admin: 04/17/21 13:35 Dose: 500 mg Documented by: Quetiapine Fumarate (Quetiapine 100 Mg Tab) 300 mg PO QHS [facility] Last Admin: 04/17/21 21:41 Dose: 300 mg Documented by: Ziprasidone (Ziprasidone 20 Mg Cap) 20 mg PO DAILY [facility] Last Admin: 04/17/21 13:35 Dose: 20 mg Documented by: Results - Results Labs/Vitals: Laboratory Last Values WBC 3.6 K/mm3 (4.5-11.0) L 04/14/21 08:44 RBC 4.19 M/mm3 (3.65-5.03) 04/14/21 08:44 Hgb 12.7 gm/dl (10.1-14.3) 04/14/21 08:44 Hct 37.8 % (30.3-42.9) 04/14/21 08:44 MCV 90 fl (79-97) 04/14/21 08:44 MCH 30 pg (28-32) 04/14/21 08:44 MCHC 34 % (30-34) 04/14/21 08:44 RDW 14.7 % (13.2-15.2) 04/14/21 08:44 Plt Count 197 K/mm3 (140-440) 04/14/21 08:44 Lymph % (Auto) 50.6 % (13.4-35.0) H 04/14/21 08:44 [place] % (Auto) 7.0 % (0.0-7.3) 04/14/21 08:44 Eos % (Auto) 1.8 % (0.0-4.3) 04/14/21 08:44 Baso % (Auto) 1.0 % (0.0-1.8) 04/14/21 08:44 Lymph # (Auto) 1.8 K/mm3 (1.2-5.4) 04/14/21 08:44 [place] # (Auto) 0.3 K/mm3 (0.0-0.8) 04/14/21 08:44 Eos # (Auto) 0.1 K/mm3 (0.0-0.4) 04/14/21 08:44 Baso # (Auto) 0.0 K/mm3 (0.0-0.1) 04/14/21 08:44 Seg Neutrophils % 39.6 % (40.0-70.0) L 04/14/21 08:44 Seg Neutrophils # 1.4 K/mm3 (1.8-7.7) L 04/14/21 08:44 Sodium 141 mmol/L (137-145) 04/14/21 08:44 Potassium 4.1 mmol/L (3.6-5.0) 04/14/21 08:44 Chloride 103.2 mmol/L (98-107) 04/14/21 08:44 Carbon Dioxide 27 mmol/L (22-30) 04/14/21 08:44 Anion Gap 15 mmol/L 04/14/21 08:44 BUN 21 mg/dL (7-17) H 04/14/21 08:44 Creatinine 0.8 mg/dL (0.6-1.2) 04/14/21 08:44 Estimated GFR > 60 ml/min 04/14/21 08:44 BUN/Creatinine Ratio 26 % 04/14/21 08:44 Glucose 112 mg/dL (65-100) H 04/14/21 08:44 POC Glucose 91 mg/dL (70-105) 04/14/21 20:05 Hemoglobin A1c 5.2 % (4-6) 04/14/21 08:44 Calcium 8.8 mg/dL (8.4-10.2) 04/14/21 08:44 Total Bilirubin 0.30 mg/dL (0.1-1.2) 04/14/21 08:44 AST 18 units/L (5-40) 04/14/21 08:44 ALT 9 units/L (7-56) 04/14/21 08:44 Alkaline Phosphatase 69 units/L (35-129) 04/14/21 08:44 Total Protein 6.5 g/dL (6.3-8.2) 04/14/21 08:44 Albumin 3.9 g/dL (3.9-5) 04/14/21 08:44 Albumin/Globulin Ratio 1.5 % 04/14/21 08:44 Triglycerides 60 mg/dL (2-149) 04/14/21 08:44 Cholesterol 149 mg/dL (50-199) 04/14/21 08:44 LDL Cholesterol Direct 75 mg/dL (50-130) 04/14/21 08:44 HDL Cholesterol 63 mg/dL (40-59) H 04/14/21 08:44 Cholesterol/HDL Ratio 2.36 % 04/14/21 08:44 TSH 0.871 mlU/mL (0.270-4.200) 04/14/21 08:44 Last Vital Signs Temp 97.4 F L 04/17/21 19:14 Pulse 69 04/17/21 19:14 Resp 16 04/17/21 19:14 BP 124/70 04/17/21 19:14 Pulse Ox 96 04/17/21 19:14
[2021-04-18] MEDS ORDERED: diphenhydrAMINE 25 MG CAP PO PRN (09:04)
[2021-04-18] MEDS ORDERED: BENZTROPINE 0.5 MG TAB PO SCH (10:00)
[2021-04-18] MEDS: ZIPRASIDONE 40 MG CAP PO SCH (10:27)
[2021-04-18] MEDS: DIVALPROEX DR 500 MG TAB PO SCH (10:27)
[2021-04-18] MEDS: DIVALPROEX ER 500 MG TAB PO SCH (21:36)
[2021-04-18] MEDS: QUEtiapine 100 MG TAB PO SCH (21:37)
--- NOTE | 2021-04-19 09:12 | Progress Note ---
Subjective Date of service: 04/19/21 Principal diagnosis: schizophrenia Subjective Comment: 04/16/21: The patient presents with psychosis, she was seen responding to internal stimuli. 04/17/2021: The patient was seen pacing and sometimes loud , she continues to be psychotic. 04/18/21: The patient was seen pacing and sometimes loud but redirectable. Per nurse "Pt slept approximately 8 hours during this shift. Awake & alert this am. Started her wandering rambling." 04/19/21: The patient was seen this morning, she is calmer but continues to respond to internal stimuli intermittently. She denies any current suicidal/homicidal ideation. She is focused on discharge. REVIEW OF SYSTEMS Constitutional: Negative for weight loss ENT: Negative for stridor Respiratory: Negative for cough or hemoptysis All other systems reviewed and are negative MENTAL STATUS EXAMINATION General Appearance and Behavior: Age appropriate, good hygiene, wearing appropriate clothes. anxious, cooperative Cooperation: cooperative Psychomotor Behavior: Psychomotor normal Mood: Hallucinations Affect and affective range: congruent with stated mood Thought Process: illogical Thought Content: hallucinations, responding to internal stimuli Speech: Normal volume, pressured Suicidal Ideation: Denies Homicidal Ideation: Denies Hallucinations: Auditory Delusions: none elicited Impulse Control: impaired Insight and Judgment: Limited Memory: limited Attention: Attentive Orientation: alert and oriented Assessment and Plan (1) Schizophrenia Treatment Plan Patient admitted for inpatient psychiatric evaluation, medication adjustment and close monitoring The patient's behavior, mood, sleep and appetite will be closely monitored. Patient enrolled in individual and group therapeutic sessions and encouraged to attend. Patient provided with a safe and structured environment. Patient's physical health needs will be addressed by the Hospitalist. Hospitalist Consulted Labs including CBC, CMP, Lipid profile and Hemoglobin A1C levels ordered for baseline reference Social Assessment will be completed and the Gridcap Machine Operator will work with patient and family to ensure a suitable and safe disposition Medication adjustment will be made as clinically indicated Start Geodon 40mg po daily Start Benztropine 0.5mg po BID Usual Wellness [facility]/Pres[facility]: - Start Trazodone 50 mg po QHS & 50 mg po QHS PRN between 10 PM & 2 AM for insomnia - Start Melatonin 5 mg po QHS to promote circadian rhythm The patient agreed on the treatment plan, understood the risk, benefit, alternative treatment, potential consequence of no treatment, and gave informed consent. Estimated days:2 Post hospital care: primary care provider, psychiatric provider Case staffed with Dr. Sullivan Medications and Allergies Medications and Allergies Allergies Allergy/AdvReac Type Severity Reaction Status Date / Time acetaminophen [From Percocet] Allergy Unknown Verified 06/15/15 17:29 benztropine mesylate Allergy Unknown Verified 06/15/15 17:29 [From Cogentin] haloperidol [From Haldol] Allergy Unknown Verified 06/15/15 17:29 haloperidol lactate Allergy Unknown Verified 06/15/15 17:29 [From Haldol] oxycodone HCl [From Percocet] Allergy Unknown Verified 06/15/15 17:29 Home Medications Medication Instructions Recorded Confirmed Last Taken Type Depakote ER 1,000 mg PO HS 04/02/16 04/14/21 04/01/16 History Quetiapine Fumarate [SEROquel XR] 400 mg PO QDAY 04/02/16 04/14/21 04/02/16 History Active Meds: Active Medications Diphenhydramine HCl (Diphenhydramine 25 Mg Cap) 25 mg PO Q6H PRN PRN Reason: Itching Divalproex Sodium (Divalproex Er 500 Mg Tab) 1,000 mg PO [facility] Last Admin: 04/18/21 21:36 Dose: 1,000 mg Documented by: Divalproex Sodium (Divalproex Dr 500 Mg Tab) 500 mg PO DAILY [facility] Last Admin: 04/18/21 10:27 Dose: 500 mg Documented by: Quetiapine Fumarate (Quetiapine 100 Mg Tab) 300 mg PO QHS [facility] Last Admin: 04/18/21 21:37 Dose: 300 mg Documented by: Ziprasidone (Ziprasidone 40 Mg Cap) 40 mg PO DAILY [facility] Last Admin: 04/18/21 10:27 Dose: 40 mg Documented by: Results - Results Labs/Vitals: Laboratory Last Values WBC 3.6 K/mm3 (4.5-11.0) L 04/14/21 08:44 RBC 4.19 M/mm3 (3.65-5.03) 04/14/21 08:44 Hgb 12.7 gm/dl (10.1-14.3) 04/14/21 08:44 Hct 37.8 % (30.3-42.9) 04/14/21 08:44 MCV 90 fl (79-97) 04/14/21 08:44 MCH 30 pg (28-32) 04/14/21 08:44 MCHC 34 % (30-34) 04/14/21 08:44 RDW 14.7 % (13.2-15.2) 04/14/21 08:44 Plt Count 197 K/mm3 (140-440) 04/14/21 08:44 Lymph % (Auto) 50.6 % (13.4-35.0) H 04/14/21 08:44 [place] % (Auto) 7.0 % (0.0-7.3) 04/14/21 08:44 Eos % (Auto) 1.8 % (0.0-4.3) 04/14/21 08:44 Baso % (Auto) 1.0 % (0.0-1.8) 04/14/21 08:44 Lymph # (Auto) 1.8 K/mm3 (1.2-5.4) 04/14/21 08:44 [place] # (Auto) 0.3 K/mm3 (0.0-0.8) 04/14/21 08:44 Eos # (Auto) 0.1 K/mm3 (0.0-0.4) 04/14/21 08:44 Baso # (Auto) 0.0 K/mm3 (0.0-0.1) 04/14/21 08:44 Seg Neutrophils % 39.6 % (40.0-70.0) L 04/14/21 08:44 Seg Neutrophils # 1.4 K/mm3 (1.8-7.7) L 04/14/21 08:44 Sodium 141 mmol/L (137-145) 04/14/21 08:44 Potassium 4.1 mmol/L (3.6-5.0) 04/14/21 08:44 Chloride 103.2 mmol/L (98-107) 04/14/21 08:44 Carbon Dioxide 27 mmol/L (22-30) 04/14/21 08:44 Anion Gap 15 mmol/L 04/14/21 08:44 BUN 21 mg/dL (7-17) H 04/14/21 08:44 Creatinine 0.8 mg/dL (0.6-1.2) 04/14/21 08:44 Estimated GFR > 60 ml/min 04/14/21 08:44 BUN/Creatinine Ratio 26 % 04/14/21 08:44 Glucose 112 mg/dL (65-100) H 04/14/21 08:44 POC Glucose 91 mg/dL (70-105) 04/14/21 20:05 Hemoglobin A1c 5.2 % (4-6) 04/14/21 08:44 Calcium 8.8 mg/dL (8.4-10.2) 04/14/21 08:44 Total Bilirubin 0.30 mg/dL (0.1-1.2) 04/14/21 08:44 AST 18 units/L (5-40) 04/14/21 08:44 ALT 9 units/L (7-56) 04/14/21 08:44 Alkaline Phosphatase 69 units/L (35-129) 04/14/21 08:44 Total Protein 6.5 g/dL (6.3-8.2) 04/14/21 08:44 Albumin 3.9 g/dL (3.9-5) 04/14/21 08:44 Albumin/Globulin Ratio 1.5 % 04/14/21 08:44 Triglycerides 60 mg/dL (2-149) 04/14/21 08:44 Cholesterol 149 mg/dL (50-199) 04/14/21 08:44 LDL Cholesterol Direct 75 mg/dL (50-130) 04/14/21 08:44 HDL Cholesterol 63 mg/dL (40-59) H 04/14/21 08:44 Cholesterol/HDL Ratio 2.36 % 04/14/21 08:44 TSH 0.871 mlU/mL (0.270-4.200) 04/14/21 08:44 Last Vital Signs Temp 98.4 F 04/18/21 19:30 Pulse 68 04/18/21 19:30 Resp 20 04/18/21 19:30 BP 126/72 04/18/21 19:30 Pulse Ox 96 04/18/21 19:30
[2021-04-19] MEDS: ZIPRASIDONE 40 MG CAP PO SCH (10:37)
[2021-04-19] MEDS: DIVALPROEX DR 500 MG TAB PO SCH (10:37)
[2021-04-19] MEDS: DIVALPROEX ER 500 MG TAB PO SCH (21:08)
[2021-04-19] MEDS: QUEtiapine 100 MG TAB PO SCH (21:08)
--- NOTE | 2021-04-20 07:58 | Discharge Summary ---
Providers - Providers Date of Admission: 04/14/21 03:27 Date of discharge: 04/20/21 Attending physician: APURVA MANDUJANO MD 04/13/21 20:45 Consult to Physician [CONS] Routine Comment: Consulting Provider: MAKI HOLLAND Physician Instructions: Reason For Exam: manage medical conditions Primary care physician: WATER FILTRATION TECHNICIAN Hospitalization Reason for admission: Hallucinations Admitting Diagnosis: F20.9 - SCHIZOPHRENIA, UNSPECIFIED Condition: Stable Hospital course: The patient was provided inpatient psychiatric treatment with safe and supportive environment, group/individual therapy, psychiatric medication, medication adjustment, adverse effect monitor, medical evaluation, medical treatment, social service assessment, social support meeting, placement assessment and psycho-education. The patients mood, cognition, behavior, motivation, compliance to treatment and appreciation on family/social support are improved and stabilized. At the time of discharge, the patient had no suicidal ideas, no homicidal ideas, no aggressive thoughts, no endangering behavior and no debilitating adverse effects. The patient agreed on the treatment plan, understood the risk, benefit, alternative treatment, potential consequence of no treatment, and gave informed consent. Progress note: 04/15/21:The patient was seen today. She says she's hearing voices telling her to kill herself. She says "that's why I stay in my room." The patient then starts angrily speaking to someone who's not there. She says "no, you did not. You didn't." 04/16/21: The patient presents with psychosis, she was seen responding to internal stimuli. 04/17/2021: The patient was seen pacing and sometimes loud , she continues to be psychotic. 04/18/21: The patient was seen pacing and sometimes loud but redirectable. Per nurse "Pt slept approximately 8 hours during this shift. Awake & alert this am. Started her wandering rambling." 04/19/21: The patient was seen this morning, she is calmer but continues to respond to internal stimuli intermittently. She denies any current suicidal/homicidal ideation. She is focused on discharge. Disposition: HOME / SELF CARE / HOMELESS Allergies/Adverse Reactions: Allergies acetaminophen [From Percocet] Allergy (Verified 06/15/15 17:29) Unknown benztropine mesylate [From Cogentin] Allergy (Verified 06/15/15 17:29) Unknown haloperidol [From Haldol] Allergy (Verified 06/15/15 17:29) Unknown haloperidol lactate [From Haldol] Allergy (Verified 06/15/15 17:29) Unknown oxycodone HCl [From Percocet] Allergy (Verified 06/15/15 17:29) Unknown Vital Signs: Last Vital Signs Temp 98.7 F 04/19/21 19:53 Pulse 79 04/19/21 19:53 Resp 18 04/19/21 19:53 BP 114/74 04/19/21 19:53 Pulse Ox 96 04/19/21 19:53 Last Lab: Laboratory Last Values WBC 3.6 K/mm3 (4.5-11.0) L 04/14/21 08:44 RBC 4.19 M/mm3 (3.65-5.03) 04/14/21 08:44 Hgb 12.7 gm/dl (10.1-14.3) 04/14/21 08:44 Hct 37.8 % (30.3-42.9) 04/14/21 08:44 MCV 90 fl (79-97) 04/14/21 08:44 MCH 30 pg (28-32) 04/14/21 08:44 MCHC 34 % (30-34) 04/14/21 08:44 RDW 14.7 % (13.2-15.2) 04/14/21 08:44 Plt Count 197 K/mm3 (140-440) 04/14/21 08:44 Lymph % (Auto) 50.6 % (13.4-35.0) H 04/14/21 08:44 [place] % (Auto) 7.0 % (0.0-7.3) 04/14/21 08:44 Eos % (Auto) 1.8 % (0.0-4.3) 04/14/21 08:44 Baso % (Auto) 1.0 % (0.0-1.8) 04/14/21 08:44 Lymph # (Auto) 1.8 K/mm3 (1.2-5.4) 04/14/21 08:44 [place] # (Auto) 0.3 K/mm3 (0.0-0.8) 04/14/21 08:44 Eos # (Auto) 0.1 K/mm3 (0.0-0.4) 04/14/21 08:44 Baso # (Auto) 0.0 K/mm3 (0.0-0.1) 04/14/21 08:44 Seg Neutrophils % 39.6 % (40.0-70.0) L 04/14/21 08:44 Seg Neutrophils # 1.4 K/mm3 (1.8-7.7) L 04/14/21 08:44 Sodium 141 mmol/L (137-145) 04/14/21 08:44 Potassium 4.1 mmol/L (3.6-5.0) 04/14/21 08:44 Chloride 103.2 mmol/L (98-107) 04/14/21 08:44 Carbon Dioxide 27 mmol/L (22-30) 04/14/21 08:44 Anion Gap 15 mmol/L 04/14/21 08:44 BUN 21 mg/dL (7-17) H 04/14/21 08:44 Creatinine 0.8 mg/dL (0.6-1.2) 04/14/21 08:44 Estimated GFR > 60 ml/min 04/14/21 08:44 BUN/Creatinine Ratio 26 % 04/14/21 08:44 Glucose 112 mg/dL (65-100) H 04/14/21 08:44 POC Glucose 91 mg/dL (70-105) 04/14/21 20:05 Hemoglobin A1c 5.2 % (4-6) 04/14/21 08:44 Calcium 8.8 mg/dL (8.4-10.2) 04/14/21 08:44 Total Bilirubin 0.30 mg/dL (0.1-1.2) 04/14/21 08:44 AST 18 units/L (5-40) 04/14/21 08:44 ALT 9 units/L (7-56) 04/14/21 08:44 Alkaline Phosphatase 69 units/L (35-129) 04/14/21 08:44 Total Protein 6.5 g/dL (6.3-8.2) 04/14/21 08:44 Albumin 3.9 g/dL (3.9-5) 04/14/21 08:44 Albumin/Globulin Ratio 1.5 % 04/14/21 08:44 Triglycerides 60 mg/dL (2-149) 04/14/21 08:44 Cholesterol 149 mg/dL (50-199) 04/14/21 08:44 LDL Cholesterol Direct 75 mg/dL (50-130) 04/14/21 08:44 HDL Cholesterol 63 mg/dL (40-59) H 04/14/21 08:44 Cholesterol/HDL Ratio 2.36 % 04/14/21 08:44 TSH 0.871 mlU/mL (0.270-4.200) 04/14/21 08:44 Core Measure Documentation - Palliative Care Palliative Care/ Comfort Measures: Not Applicable - Core Measures Any of the following diagnoses?: none - VTE Discharge Requirements Deep Vein Thrombosis/Pulmonary Embolism Present on Admission: No Exam - Constitutional Vitals: Temp Pulse Resp BP Pulse Ox 98.7 F 79 18 114/74 96 04/19/21 19:53 04/19/21 19:53 04/19/21 19:53 04/19/21 19:53 04/19/21 19:53 Plan Care Plan Goals: Maintain good and stable mental health. Plan of Treatment: The patient should be compliant with medications, not to use drugs and not to drink alcohol. The patient understands that if suicidal ideas, homicidal ideas, or any endangering thoughts/behavior arise, they should immediately seek for emergent assistance including but not limited to crisis hot line and emergency room. Follow up with outpatient Psychiatrist and PCP within 7 - 14 days of discharge. Follow up with: PRIMARY CARE, [Primary Care Provider] - 7 Days Prescriptions: QUEtiapine [SEROquel] 300 mg PO QHS 30 Days #[address] [Depakote Dr] 500 mg PO DAILY 30 Days #30 tablet Depakote ER 1,000 mg PO HS 30 Days #30 Ziprasidone [Geodon] 40 mg PO DAILY 30 Days #30 capsule
[2021-04-20] MEDS: ZIPRASIDONE 40 MG CAP PO SCH (10:50)
[2021-04-20] MEDS: DIVALPROEX DR 500 MG TAB PO SCH (10:50)
[2021-04-20 12:18] VITALS: BP 134/85
== END 2021-04-20 18:00 | disposition home or self-care (01) | DRG 885 ==
LOC: 3A 15:02 → UNDOADMIN 15:02 → 5A 04-14 03:27
PROVIDERS: ADMIT Psychiatry & Neurology Psychiatry; ATTEND Psychiatry & Neurology Psychiatry
DX: F20.9 Schizophrenia, unspecified (principal); E11.9 Type 2 diabetes mellitus without complications; F41.9 Anxiety disorder, unspecified; E44.0 Moderate protein-calorie malnutrition; F32.9 Major depressive disorder, single episode, unspecified; Z20.822 Contact with and (suspected) exposure to COVID-19; Z83.3 Family history of diabetes mellitus; Z82.49 Family history of ischemic heart disease and other diseases of the circulatory system; Z68.1 Body mass index [BMI] 19.9 or less, adult
CPT/HCPCS: 36415; 71045; 80048; 80053; 80061; 80164; 80307; 80320; 81001; 82962; 83036; 84443; 85025; 99285; G0378; G0480; Q0177; U0003

== ENCOUNTER 2021-04-23 19:40 | Emergency (ER) | payer MEDICAID ==
--- NOTE | 2021-04-23 20:11 | Emergency Department Report ---
HPI - General Chief Complaint: Psych Time Seen by Provider: 04/23/21 19:57 - HPI HPI: Room 15 The patient is a 50-year-old female present with a chief complaint of suicidal ideation and cough. The patient states she has had a cough has been nonproducti ve and rhinorrhea for approximately 1 week. Patient denies history of fever. Patient states she has not been vaccinated against Covid. Patient states for the past 2 days she has had suicidal ideation with a plan to cut her wrist. Patient denies any attempts at harming herself. The patient is having a conversation with a nonexistent person during my interview ED Past Medical Hx - Past Medical History Hx Hypertension: Yes Hx Diabetes: Yes Hx Kidney Stones: Yes Hx Psychiatric Treatment: Yes (BIPOLAR, SCHIZOPHRENIA) - Surgical History Additional Surgical History: TUBAL LIGATION - Family History Family history: no significant - Social History Smoking Status: Current Every Day Smoker Substance Use Type: None - Medications Home Medications: Home Medications Medication Instructions Recorded Confirmed Last Taken Type Quetiapine Fumarate [SEROquel XR] 400 mg PO QDAY 04/02/16 04/14/21 04/02/16 History Depakote ER 1,000 mg PO HS 30 Days #30 04/20/[address] [Depakote Dr] 500 mg PO DAILY 30 Days #30 tablet 04/20/21 Unknown Rx QUEtiapine [SEROquel] 300 mg PO QHS 30 Days #90 tablet 04/20/21 Unknown Rx Ziprasidone [Geodon] 40 mg PO DAILY 30 Days #30 capsule 04/20/21 Unknown Rx ED Review of Systems ROS: Stated complaint: COLD/HOMELESS Other details as noted in HPI Constitutional: denies: fever Eyes: denies: eye pain ENT: denies: throat pain Respiratory: cough Cardiovascular: denies: chest pain Endocrine: no symptoms reported Gastrointestinal: denies: abdominal pain Genitourinary: denies: dysuria Musculoskeletal: denies: back pain Neurological: denies: headache Psychiatric: suicidal thoughts Physical Exam - Physical Exam Vital Signs: Vital Signs 04/23/21 19:49 Temperature 98.9 F Pulse Rate 89 Respiratory 16 Rate Blood Pressure 178/111 [Left] O2 Sat by Pulse 99 Oximetry Physical Exam: GENERAL: The patient is well-developed well-nourished female sitting in chair not appearing to be in acute distress. Patient having conversation with a nonexistent person. HEENT: Normocephalic. Atraumatic. Extraocular motions are intact. Patient has moist mucous membranes. NECK: Supple. Trachea midline CHEST/LUNGS: Clear to auscultation. There is no respiratory distress noted. HEART/CARDIOVASCULAR: Regular. There is no tachycardia. There is no gallop rub or murmur. ABDOMEN: Abdomen is soft, nontender. Patient has normal bowel sounds. There is no abdominal distention. SKIN: There is no rash. There is no edema. There is no diaphoresis. NEURO: The patient is awake, alert, and oriented. The patient is cooperative. The patient has no focal neurologic deficits. The patient has normal speech. GCS 15 MUSCULOSKELETAL: There is no evidence of acute injury. ED Course Vital Signs 04/23/21 19:49 Temperature 98.9 F Pulse Rate 89 Respiratory 16 Rate Blood Pressure 178/111 [Left] O2 Sat by Pulse 99 Oximetry ED Medical Decision Making - Lab Data Result diagrams: 04/23/21 20:13 04/23/21 20:13 Laboratory Tests 04/23/21 04/23/21 04/23/21 20:13 20:13 20:13 WBC 7.1 RBC 4.64 Hgb 13.5 Hct 41.9 MCV 90 MCH 29 MCHC 32 RDW 15.1 Plt Count 202 Lymph % (Auto) 27.2 [place] % (Auto) 7.2 Eos % (Auto) 0.6 Baso % (Auto) 0.6 Lymph # (Auto) 1.9 [place] # (Auto) 0.5 Eos # (Auto) 0.0 Baso # (Auto) 0.0 Seg Neutrophils % 64.4 Seg Neutrophils # 4.5 Sodium 141 Potassium 4.4 Chloride 101.6 Carbon Dioxide 28 Anion Gap 16 BUN 20 H Creatinine 0.8 Estimated GFR > 60 BUN/Creatinine Ratio 25 Glucose 96 Calcium 9.6 Total Bilirubin 0.20 AST 18 ALT 11 Alkaline Phosphatase 78 Total Protein 7.3 Albumin 4.6 Albumin/Globulin Ratio 1.7 HCG, Qual Salicylates < 0.3 L Acetaminophen Valproic Acid 3.3 L Plasma/Serum Alcohol 04/23/21 04/23/21 04/23/21 20:13 20:13 20:13 WBC RBC Hgb Hct MCV MCH MCHC RDW Plt Count Lymph % (Auto) [place] % (Auto) Eos % (Auto) Baso % (Auto) Lymph # (Auto) [place] # (Auto) Eos # (Auto) Baso # (Auto) Seg Neutrophils % Seg Neutrophils # Sodium Potassium Chloride Carbon Dioxide Anion Gap BUN Creatinine Estimated GFR BUN/Creatinine Ratio Glucose Calcium Total Bilirubin AST ALT Alkaline Phosphatase Total Protein Albumin Albumin/Globulin Ratio HCG, Qual Negative Salicylates Acetaminophen 5.0 L Valproic Acid Plasma/Serum Alcohol < 0.01 - Differential Diagnosis Schizophrenia, suicidal ideation, URI, bronchitis, Covid Critical care attestation.: If time is entered above; I have spent that time in minutes in the direct care of this critically ill patient, excluding procedure time. ED Disposition Clinical Impression: Suicidal ideation Disposition: [address] [place] [address] Is pt being admited?: No Does the pt Need Aspirin: No Condition: Stable
[2021-04-23 20:26] LABS: Basophils % (Auto) 0.6 % (0.0-1.8); Eosinophils % (Auto) 0.6 % (0.0-4.3); Hematocrit 41.9 % (30.3-42.9); Hemoglobin 13.5 gm/dl (10.1-14.3); Lymphocytes # (Auto) 1.9 K/mm3 (1.2-5.4); Lymphocytes % (Auto) 27.2 % (13.4-35.0); Mean Corpuscular HGB Conc 32 % (30-34); Mean Corpuscular Volume 90 fl (79-97); Monocytes # (Auto) 0.5 K/mm3 (0.0-0.8); Monocytes % (Auto) 7.2 % (0.0-7.3); Platelet Count 202 K/mm3 (140-440); Red Blood Count 4.64 M/mm3 (3.65-5.03); Red Cell Distribution Width 15.1 % (13.2-15.2)
[2021-04-23 20:48] LABS: Alanine Aminotransferase 11 units/L (7-56); Albumin 4.6 g/dL (3.9-5); BUN/Creatinine Ratio 25; Blood Urea Nitrogen 20 mg/dL (7-17); Calcium 9.6 mg/dL (8.4-10.2); Hemolysis Index 8
[2021-04-23] MEDS ORDERED: LORazepam 2 MG/ML VIAL IM PRN (21:11)
[2021-04-23] MEDS ORDERED: LORazepam 1 MG TAB PO ONE (21:12)
[2021-04-23] MEDS ORDERED: diphenhydrAMINE 50 MG/ML VIAL IM PRN (21:12)
--- NOTE | 2021-04-23 21:17 | XRay Report ---
CHEST 2 VIEWS INDICATION / CLINICAL INFORMATION: Cough. COMPARISON: One view of the chest from 04/13/2021. FINDINGS: SUPPORT DEVICES: None. HEART / MEDIASTINUM: No significant abnormality. LUNGS / PLEURA: The left hemidiaphragm is elevated. The lungs are clear. No significant pleural effus ion. No pneumothorax. ADDITIONAL FINDINGS: No significant additional findings. IMPRESSION: 1. No acute abnormality of the chest. Signer Name: Fransisco Chambers MD Signed: 04/23/2021 9:13 PM Workstation Name: [id number]
[2021-04-24] MEDS ORDERED: QUETIAPINE FUMARATE 400 MG PO SCH (11:00)
--- NOTE | 2021-04-24 11:00 | Consultation ---
History of Present Illness - Reason for Consult Consult date: 04/24/21 Reason for consult: SI with plan to cut her wrist - History of Present Psychiatric Illness The patient was seen today. She says just released from [facility] about two weeks ago. The patient says her "medication aint working." She says she has been more suicidal over the last few days with a plan to cut her wrist. She endorses hallucinations "telling me all sorts of stuff." She then walks off and is heard cursing to someone who is not there PAST PSYCHIATRIC HISTORY: Diagnoses: Bipolar, schizophrenia Suicide attempts or Self-harm behavior: Denies Prior psychiatric hospitalizations: Yes Substance Abuse history: Denies Previous psychiatric medications tried: seroquel Outpatient treatment: Denies PAST MEDICAL HISTORY: None reported or document Family Psychiatric History: None reported or documented SOCIAL HISTORY Marital Status: Single Living Arrangements: Lives alone Employment Status: Disabled Access to guns/weapons: Denies Education: History of Abuse: Denies Legal History: Denies REVIEW OF SYSTEMS Constitutional: Negative for weight loss ENT: Negative for stridor Respiratory: Negative for cough or hemoptysis All other systems reviewed and are negative MENTAL STATUS EXAMINATION General Appearance and Behavior: Age appropriate, good hygiene, wearing appropriate clothes. anxious, cooperative Cooperation: cooperative Psychomotor Behavior: Psychomotor normal Mood: depressed Affect and affective range: congruent with stated mood Thought Process: illogical Thought Content: hallucinations, responding to internal stimuli Speech: Normal volume, Regular rate and rhythm, Suicidal Ideation: yes Homicidal Ideation: Denies Hallucinations: Auditory Delusions: none elicited Impulse Control: impaired Insight and Judgment: Limited Memory: limited Attention: Attentive Orientation: alert and oriented Assessment and Plan (1) Schizophrenia Treatment Plan 1013 Restarted home meds Increase Geodon 60mg po BID Medical: per primary Sitter: per primary Disposition: Recommend acute psychiatric inpatient treatment Will follow. Thanks. Medications and Allergies Allergies Allergy/AdvReac Type Severity Reaction Status Date / Time acetaminophen [From Percocet] Allergy Unknown Verified 04/23/21 19:49 benztropine mesylate Allergy Unknown Verified 04/23/21 19:49 [From Cogentin] haloperidol [From Haldol] Allergy Unknown Verified 04/23/21 19:49 haloperidol lactate Allergy Unknown Verified 04/23/21 19:49 [From Haldol] oxycodone HCl [From Percocet] Allergy Unknown Verified 04/23/21 19:49 Home Medications Medication Instructions Recorded Confirmed Last Taken Type Quetiapine Fumarate [SEROquel XR] 400 mg PO QDAY 04/02/16 04/14/21 04/02/16 History Depakote ER 1,000 mg PO HS 30 Days #30 04/20/[address] [Depakote Dr] 500 mg PO DAILY 30 Days #30 tablet 04/20/21 Unknown Rx QUEtiapine [SEROquel] 300 mg PO QHS 30 Days #90 tablet 04/20/21 Unknown Rx Ziprasidone [Geodon] 40 mg PO DAILY 30 Days #30 capsule 04/20/21 Unknown Rx Active Meds: Active Medications Diphenhydramine HCl (Diphenhydramine 50 Mg/Ml Vial) 50 mg IM Q6H PRN PRN Reason: Agitation Lorazepam (Lorazepam 2 Mg/Ml Vial) 2 mg IM Q8H PRN PRN Reason: Agitation Mental Status Exam - Vital signs Last Vital Signs Temp 98.6 F 04/23/21 21:46 Pulse 108 H 04/23/21 21:46 Resp 18 04/23/21 21:46 BP 110/70 04/23/21 21:46 Pulse Ox 98 04/23/21 21:46 Results Result Diagrams: 04/23/21 20:13 04/23/21 20:13 Abnormal lab results 04/23/21 04/23/21 04/23/21 Range/Units 20:13 20:13 20:13 BUN 20 H (7-17) mg/dL Salicylates < 0.3 L (2.8-20.0) mg/dL Acetaminophen 5.0 L (10.0-30.0) ug/mL Valproic Acid 3.3 L (50-100) ug/mL All other labs normal.
--- NOTE | 2021-04-24 11:22 | Event Note ---
Date: 04/24/21 Patient is 51 years old female admitted to the ER for mental health evaluation mainly due to suicidal ideation. Patient is calm in no acute distress. Vital signs stable. Labs reviewed and is unremarkable. Chest x-ray is unremarkable. Waiting for inpatient psychiatric acceptance.
[2021-04-24] MEDS ORDERED: ZIPRASIDONE 40 MG CAP PO SCH (12:00)
[2021-04-24] MEDS: DIVALPROEX DR 500 MG TAB PO SCH (13:40)
[2021-04-24 20:38] LABS: Bilirubin,Urine NEG (Negative); Blood,Urine NEG (Negative); Color,Urine Yellow (Yellow); Mucus,Urine FEW /HPF; Protein,Urine <15 mg/dL mg/dL (Negative); Urobilinogen,Urine < 2.0 mg/dL (<2.0)
[2021-04-24 20:45] LABS: Amphetamine Screen,Urine Negative; Benzodiazepines Screen,Urine Negative; Cannabinoid Screen,Urine Negative; Cocaine Screen,Urine Negative; Methadone Screen,Urine Negative; Opiate Screen,Urine Negative
[2021-04-24] MEDS: DIVALPROEX ER 500 MG TAB PO SCH ×3 (21:08→21:51)
[2021-04-24] MEDS: QUEtiapine 100 MG TAB PO SCH ×3 (21:09→21:52)
[2021-04-24] MEDS ORDERED: DEPAKOTE PO SCH (22:00)
--- NOTE | 2021-04-25 10:38 | Progress Note ---
Subjective - Reason for Consult Consult date: 04/25/21 Reason for consult: psychosis, SI - Chief Complaint Chief complaint: The patient was seen today. She still endorses SI/HI with a plan to cut her wrist. She is talking angrily to people who are not around. REVIEW OF SYSTEMS Constitutional: Negative for weight loss ENT: Negative for stridor Respiratory: Negative for cough or hemoptysis All other systems reviewed and are negative MENTAL STATUS EXAMINATION General Appearance and Behavior: Age appropriate, good hygiene, wearing appropriate clothes. anxious, cooperative Cooperation: cooperative Psychomotor Behavior: Psychomotor normal Mood: depressed Affect and affective range: congruent with stated mood Thought Process: illogical Thought Content: hallucinations, responding to internal stimuli Speech: Normal volume, Regular rate and rhythm, Suicidal Ideation: yes Homicidal Ideation: Denies Hallucinations: Auditory Delusions: none elicited Impulse Control: impaired Insight and Judgment: Limited Memory: limited Attention: Attentive Orientation: alert and oriented Assessment and Plan (1) Schizophrenia Treatment Plan 1013 Increase Geodon 60mg po BID Medical: per primary Sitter: per primary Disposition: Recommend acute psychiatric inpatient treatment Will follow. Thanks. Mental Status Exam - Vital signs Last Vital Signs Temp 98.7 F 04/24/21 19:45 Pulse 80 04/24/21 19:45 Resp 18 04/24/21 19:45 BP 110/87 04/24/21 19:45 Pulse Ox 96 04/24/21 19:45
--- NOTE | 2021-04-25 11:20 | Event Note ---
Date: 04/25/21 Patient is still endorsing suicidal ideation by cutting her wrist. Vital signs stable. Labs reviewed and is unremarkable. Waiting for inpatient psychiatric admission.
[2021-04-25] MEDS: DIVALPROEX DR 500 MG TAB PO SCH (12:44)
[2021-04-25] MEDS: ZIPRASIDONE 60 MG CAP PO SCH ×2 (12:44→23:30)
[2021-04-25] MEDS: DIVALPROEX ER 500 MG TAB PO SCH (23:31)
[2021-04-25] MEDS: QUEtiapine 100 MG TAB PO SCH (23:31)
[2021-04-26] MEDS: ZIPRASIDONE 60 MG CAP PO SCH ×2 (07:45→11:00)
[2021-04-26 08:58] VITALS: BP 116/65
[2021-04-26] MEDS: DIVALPROEX DR 500 MG TAB PO SCH (11:01)
[2021-04-26] MEDS ORDERED: QUEtiapine 200 MG TAB PO SCH (12:00)
--- NOTE | 2021-04-26 12:00 | Progress Note ---
Subjective - Reason for Consult Consult date: 04/26/21 Reason for consult: SI - Chief Complaint Chief complaint: The patient was seen today. She is sleeping but easily arouses. The patient now states she feels fine, and no longer endorses suicidal thoughts. She says she slept good. The patient denies hallucinations, but is heard talking to herself. It appears that her hallucinations are chronic. When asking her about it, she says "I always do that." The patient asks if we found her a place to live. REVIEW OF SYSTEMS Constitutional: Negative for weight loss ENT: Negative for stridor Respiratory: Negative for cough or hemoptysis All other systems reviewed and are negative MENTAL STATUS EXAMINATION General Appearance and Behavior: Age appropriate, good hygiene, wearing appropriate clothes, cooperative Cooperation: cooperative Psychomotor Behavior: Psychomotor normal Mood: fine Affect and affective range: congruent with stated mood Thought Process: goal directed Thought Content: hallucinations Speech: Normal volume, Regular rate and rhythm, Suicidal Ideation: Denies Homicidal Ideation: Denies Hallucinations: denies, but overheard talking to herself, states she always does that Delusions: none elicited Impulse Control: Limited Insight and Judgment: Limited Memory: limited Attention: Attentive Orientation: alert and oriented Assessment and Plan (1) Schizophrenia Treatment Plan d/c 1013 Geodon 60mg po BID Medical: per primary Sitter: per primary Disposition: Do not recommend acute psychiatric inpatient treatment. The patient understands that if SI/HI or any fear of endangerment are to return she is to seek immediate assistance. The grader tender to give the patient all necessary outpatient resources Please give the patient transportation pass if needed Will sign off. Thanks. Case staffed with Dr. Sullivan Mental Status Exam - Vital signs Last Vital Signs Temp 97.1 F L 04/26/21 08:57 Pulse 81 04/26/21 08:57 Resp 18 04/26/21 08:57 BP 116/65 04/26/21 08:57 Pulse Ox 94 04/26/21 08:57
--- NOTE | 2021-04-26 12:43 | Emergency Department Report ---
Blank Doc - Documentation Documentation: Patient initially 1013. 1013 discontinue as per mental health consult/evaluat ion. Patient has been medically cleared with no events reported overnight. Patient will be discharged with mental health follow-up
== END 2021-04-26 17:51 | disposition home or self-care (01) ==
LOC: ED 19:40
DX: R45.851 Suicidal ideations (principal); R50.9 Fever, unspecified; Z20.822 Contact with and (suspected) exposure to COVID-19; I10 Essential (primary) hypertension; E11.9 Type 2 diabetes mellitus without complications; F31.9 Bipolar disorder, unspecified; F20.9 Schizophrenia, unspecified; F17.200 Nicotine dependence, unspecified, uncomplicated; Z98.51 Tubal ligation status; Z87.442 Personal history of urinary calculi; Z79.899 Other long term (current) drug therapy
CPT/HCPCS: 36415; 71046; 80053; 80164; 80307; 81001; 84703; 85025; 99285; U0003; 80320; G0480

== ENCOUNTER 2021-05-07 00:55 | Emergency (ER) | payer MEDICAID ==
--- NOTE | 2021-05-07 07:31 | Emergency Department Report ---
ED Psych HPI - General Chief Complaint: Psych Stated Complaint: MENTAL HEALTH CONCERNS Time Seen by Provider: 05/07/21 06:15 Source: patient Mode of arrival: Ambulatory Limitations: No Limitations - History of Present Illness Initial Comments: 50-year-old female with a past medical history of bipolar disorder and schizophrenia presents to the hospital complaining of psychosis with suicidal ideation. Patient is hearing voices. Suicidal for "a couple of days". Plan to cut her wrist. History of jumping out of a car in the past and attempt to kill herself. As per medical record review patient has been here multiple times since April for similar statements. As per medical record patient is homeless. Patient does not endorse any physical complaints - Related Data Home Medications Medication Instructions Recorded Confirmed Last Taken Quetiapine Fumarate [SEROquel XR] 400 mg PO QDAY 04/02/16 04/14/21 04/02/16 Previous Rx's Medication Instructions Recorded Last Taken Type Depakote ER 1,000 mg PO HS 30 Days #30 04/20/[address] [Depakote Dr] 500 mg PO DAILY 30 Days #30 tablet 04/20/21 Unknown Rx QUEtiapine [SEROquel] 300 mg PO QHS 30 Days #90 tablet 04/20/21 Unknown Rx Ziprasidone [Geodon] 40 mg PO DAILY 30 Days #30 capsule 04/20/21 Unknown Rx Ziprasidone [Geodon] 60 mg PO BID #60 capsule 04/26/21 Unknown Rx Allergies Allergy/AdvReac Type Severity Reaction Status Date / Time acetaminophen [From Percocet] Allergy Unknown Verified 04/23/21 19:49 benztropine mesylate Allergy Unknown Verified 04/23/21 19:49 [From Cogentin] haloperidol [From Haldol] Allergy Unknown Verified 04/23/21 19:49 haloperidol lactate Allergy Unknown Verified 04/23/21 19:49 [From Haldol] oxycodone HCl [From Percocet] Allergy Unknown Verified 04/23/21 19:49 ED Review of Systems ROS: Stated complaint: MENTAL HEALTH CONCERNS Other details as noted in HPI Comment: All other systems reviewed and negative ED Past Medical Hx - Past Medical History Hx Hypertension: Yes Hx Congestive Heart Failure: No Hx Diabetes: Yes Hx Renal Disease: No Hx Arthritis: No Hx Seizures: No Hx Kidney Stones: Yes Hx Psychiatric Treatment: Yes (BIPOLAR, SCHIZOPHRENIA) Hx Asthma: No Hx COPD: No Hx Dementia: No - Surgical History Hx Cholecystectomy: No Hx Appendectomy: No Additional Surgical History: TUBAL LIGATION - Social History Smoking Status: Current Every Day Smoker Substance Use Type: None - Medications Home Medications: Home Medications Medication Instructions Recorded Confirmed Last Taken Type Quetiapine Fumarate [SEROquel XR] 400 mg PO QDAY 04/02/16 04/14/21 04/02/16 History Depakote ER 1,000 mg PO HS 30 Days #30 04/20/[address] [Depakote Dr] 500 mg PO DAILY 30 Days #30 tablet 04/20/21 Unknown Rx QUEtiapine [SEROquel] 300 mg PO QHS 30 Days #90 tablet 04/20/21 Unknown Rx Ziprasidone [Geodon] 40 mg PO DAILY 30 Days #30 capsule 04/20/21 Unknown Rx Ziprasidone [Geodon] 60 mg PO BID #60 capsule 04/26/21 Unknown Rx ED Physical Exam - General Limitations: No Limitations - Other Other exam information: General: No acute distress Head: Atraumatic Eyes: normal appearance ENT: Moist mucous membranes Neck: Normal appearance, no midline tenderness Chest: Clear to auscultation bilaterally CV: Regular rate and rhythm Abdomen: Soft, normal bowel sounds, nontender, nondistended, no rebound or guarding Back: Normal inspection Extremity: Normal inspection, full range of motion Neuro: Alert O x 3, no facial asymmetry, speech clear, no gross motor sensory deficit Psych: Appropriate behavior Skin: No rash ED Course Vital Signs 05/07/21 05/07/21 05/07/21 03:19 07:34 10:00 Temperature 98.4 F 98 F Pulse Rate 82 92 H Respiratory 20 18 18 Rate Blood Pressure 140/75 136/70 [Left] O2 Sat by Pulse 99 97 97 Oximetry 05/08/21 05/08/21 05/08/21 06:38 06:39 09:36 Temperature 98.3 F Pulse Rate 86 Respiratory 18 18 Rate Blood Pressure 117/69 [Left] O2 Sat by Pulse 97 97 98 Oximetry 05/08/21 19:44 Temperature 98.2 F Pulse Rate 90 Respiratory 18 Rate Blood Pressure 144/67 [Left] O2 Sat by Pulse 96 Oximetry ED Medical Decision Making - Lab Data Result diagrams: 05/07/21 07:10 05/07/21 07:10 Lab Results 05/07/21 05/07/21 05/07/21 Range/Units 07:10 07:10 07:10 WBC 5.1 (4.5-11.0) K/mm3 RBC 4.24 (3.65-5.03) M/mm3 Hgb 12.3 (10.1-14.3) gm/dl Hct 38.2 (30.3-42.9) % MCV 90 (79-97) fl MCH 29 (28-32) pg MCHC 32 (30-34) % RDW 14.9 (13.2-15.2) % Plt Count 225 (140-440) K/mm3 Lymph % (Auto) 34.3 (13.4-35.0) % Esmeralda % (Auto) 9.7 H (0.0-7.3) % Eos % (Auto) 4.1 (0.0-4.3) % Baso % (Auto) 0.7 (0.0-1.8) % Lymph # (Auto) 1.8 (1.2-5.4) K/mm3 Esmeralda # (Auto) 0.5 (0.0-0.8) K/mm3 Eos # (Auto) 0.2 (0.0-0.4) K/mm3 Baso # (Auto) 0.0 (0.0-0.1) K/mm3 Seg Neutrophils % 51.2 (40.0-70.0) % Seg Neutrophils # 2.6 (1.8-7.7) K/mm3 Sodium 141 (137-145) mmol/L Potassium 4.1 (3.6-5.0) mmol/L Chloride 103.6 (98-107) mmol/L Carbon Dioxide 28 (22-30) mmol/L Anion Gap 14 mmol/L BUN 17 (7-17) mg/dL Creatinine 0.7 (0.6-1.2) mg/dL Estimated GFR > 60 ml/min BUN/Creatinine Ratio 24 % Glucose 83 (65-100) mg/dL Calcium 8.8 (8.4-10.2) mg/dL HCG, Qual (Negative) Salicylates < 0.3 L (2.8-20.0) mg/dL Acetaminophen (10.0-30.0) ug/mL Valproic Acid (50-100) ug/mL Plasma/Serum Alcohol (0-0.07) % 05/07/21 05/07/21 05/07/21 Range/Units 07:10 07:10 07:10 WBC (4.5-11.0) K/mm3 RBC (3.65-5.03) M/mm3 Hgb (10.1-14.3) gm/dl Hct (30.3-42.9) % MCV (79-97) fl MCH (28-32) pg MCHC (30-34) % RDW (13.2-15.2) % Plt Count (140-440) K/mm3 Lymph % (Auto) (13.4-35.0) % Esmeralda % (Auto) (0.0-7.3) % Eos % (Auto) (0.0-4.3) % Baso % (Auto) (0.0-1.8) % Lymph # (Auto) (1.2-5.4) K/mm3 Esmeralda # (Auto) (0.0-0.8) K/mm3 Eos # (Auto) (0.0-0.4) K/mm3 Baso # (Auto) (0.0-0.1) K/mm3 Seg Neutrophils % (40.0-70.0) % Seg Neutrophils # (1.8-7.7) K/mm3 Sodium (137-145) mmol/L Potassium (3.6-5.0) mmol/L Chloride (98-107) mmol/L Carbon Dioxide (22-30) mmol/L Anion Gap mmol/L BUN (7-17) mg/dL Creatinine (0.6-1.2) mg/dL Estimated GFR ml/min BUN/Creatinine Ratio % Glucose (65-100) mg/dL Calcium (8.4-10.2) mg/dL HCG, Qual Negative (Negative) Salicylates (2.8-20.0) mg/dL Acetaminophen 5.0 L (10.0-30.0) ug/mL Valproic Acid (50-100) ug/mL Plasma/Serum Alcohol < 0.01 (0-0.07) % 05/07/21 Range/Units 07:10 WBC (4.5-11.0) K/mm3 RBC (3.65-5.03) M/mm3 Hgb (10.1-14.3) gm/dl Hct (30.3-42.9) % MCV (79-97) fl MCH (28-32) pg MCHC (30-34) % RDW (13.2-15.2) % Plt Count (140-440) K/mm3 Lymph % (Auto) (13.4-35.0) % Esmeralda % (Auto) (0.0-7.3) % Eos % (Auto) (0.0-4.3) % Baso % (Auto) (0.0-1.8) % Lymph # (Auto) (1.2-5.4) K/mm3 Esmeralda # (Auto) (0.0-0.8) K/mm3 Eos # (Auto) (0.0-0.4) K/mm3 Baso # (Auto) (0.0-0.1) K/mm3 Seg Neutrophils % (40.0-70.0) % Seg Neutrophils # (1.8-7.7) K/mm3 Sodium (137-145) mmol/L Potassium (3.6-5.0) mmol/L Chloride (98-107) mmol/L Carbon Dioxide (22-30) mmol/L Anion Gap mmol/L BUN (7-17) mg/dL Creatinine (0.6-1.2) mg/dL Estimated GFR ml/min BUN/Creatinine Ratio % Glucose (65-100) mg/dL Calcium (8.4-10.2) mg/dL HCG, Qual (Negative) Salicylates (2.8-20.0) mg/dL Acetaminophen (10.0-30.0) ug/mL Valproic Acid 2.8 L (50-100) ug/mL Plasma/Serum Alcohol (0-0.07) % - Medical Decision Making 50-year female presents to the hospital suicidal ideation. 1013 signed. Patient medically cleared however, urine collection is pending. Critical Care Time: No Critical care attestation.: If time is entered above; I have spent that time in minutes in the direct care of this critically ill patient, excluding procedure time. ED Disposition Clinical Impression: Suicidal ideation, Medical clearance for psychiatric admission Disposition: [address] [place] [address] Is pt being admited?: No Condition: Stable
[2021-05-07 07:43] LABS: Basophils % (Auto) 0.7 % (0.0-1.8); Eosinophils # (Auto) 0.2 K/mm3 (0.0-0.4); Eosinophils % (Auto) 4.1 % (0.0-4.3); Hematocrit 38.2 % (30.3-42.9); Hemoglobin 12.3 gm/dl (10.1-14.3); Lymphocytes # (Auto) 1.8 K/mm3 (1.2-5.4); Lymphocytes % (Auto) 34.3 % (13.4-35.0); Mean Corpuscular HGB Conc 32 % (30-34); Mean Corpuscular Volume 90 fl (79-97); Monocytes # (Auto) 0.5 K/mm3 (0.0-0.8); Monocytes % (Auto) 9.7 % (0.0-7.3); Platelet Count 225 K/mm3 (140-440); Red Blood Count 4.24 M/mm3 (3.65-5.03); Red Cell Distribution Width 14.9 % (13.2-15.2)
[2021-05-07 07:53] LABS: Blood Urea Nitrogen 17 mg/dL (7-17); Calcium 8.8 mg/dL (8.4-10.2); Hemolysis Index 10
[2021-05-07 08:10] LABS: BUN/Creatinine Ratio 24
--- NOTE | 2021-05-07 11:10 | Progress Note ---
Subjective - Reason for Consult Consult date: 05/07/21 Reason for consult: schizophrenia - Chief Complaint Chief complaint: The patient was seen today. She is known to me. She is verbalizing hallucinations that has gotten worse. The patient says "the meds are not working. The voices are getting real bad." She also endorses suicidal thoughts with a plan to cut her wrist. She denies any drug use, or alcohol. She says "I've been clean for three months." The patient then starts angrily speaking to someone who is not there. She says "she is not a snitch. She's telling the truth." REVIEW OF SYSTEMS Constitutional: Negative for weight loss ENT: Negative for stridor Respiratory: Negative for cough or hemoptysis All other systems reviewed and are negative MENTAL STATUS EXAMINATION General Appearance and Behavior: Age appropriate, good hygiene, wearing appropriate clothes, cooperative Cooperation: cooperative Psychomotor Behavior: Psychomotor normal Mood: fine Affect and affective range: congruent with stated mood Thought Process: goal directed Thought Content: hallucinations Speech: Normal volume, Regular rate and rhythm, Suicidal Ideation: Yes, with plan Homicidal Ideation: Denies Hallucinations: Yes Delusions: none elicited Impulse Control: Limited Insight and Judgment: Limited Memory: limited Attention: Attentive Orientation: alert and oriented Assessment and Plan (1) Schizophrenia Treatment Plan Geodon 60mg po BID Start Depakote DR 125mg po BID Medical: per primary Sitter: per primary Disposition: recommend acute psychiatric inpatient treatment. Will follow. Thanks Case staffed with Dr. Sullivan Mental Status Exam - Vital signs Last Vital Signs Temp 98.4 F 05/07/21 03:19 Pulse 82 05/07/21 03:19 Resp 18 05/07/21 07:34 BP 140/75 05/07/21 03:19 Pulse Ox 97 05/07/21 07:34
[2021-05-07] MEDS: DIVALPROEX DR 125 MG TAB PO SCH (12:08)
[2021-05-07] MEDS: ZIPRASIDONE 60 MG CAP PO SCH (12:08)
[2021-05-08] MEDS: DIVALPROEX DR 125 MG TAB PO SCH ×2 (00:25→10:29)
[2021-05-08] MEDS: ZIPRASIDONE 60 MG CAP PO SCH ×3 (00:26→23:17)
[2021-05-08] MEDS ORDERED: SODIUM CHLORIDE 0.9% 1000 ML 3,000 ML ONE (00:41)
[2021-05-08 01:16] LABS: Bilirubin,Urine NEG (Negative); Blood,Urine NEG (Negative); Calcium Oxalate Crystals,Urine 3+; Color,Urine Yellow (Yellow); Mucus,Urine 1+ /HPF; Protein,Urine <15 mg/dL mg/dL (Negative)
[2021-05-08 02:57] LABS: Amphetamine Screen,Urine Negative; Benzodiazepines Screen,Urine Negative; Cannabinoid Screen,Urine Negative; Cocaine Screen,Urine Negative; Methadone Screen,Urine Negative; Opiate Screen,Urine Negative
--- NOTE | 2021-05-08 10:07 | Progress Note ---
Subjective - Reason for Consult Consult date: 05/08/21 Reason for consult: psychosis - Chief Complaint Chief complaint: The patient was seen today. She is still hearing the voices, which appear to be a lot worse. The patient endorses suicidal thoughts, and states the thougts are getting worse. She then gets angry and starts ranting to someone who is not there. The patient is loud, and irritable with pressured speech. She is disruptive to the milieu. It is difficult to speak to the other patients even at a distance due to her psychosis. REVIEW OF SYSTEMS Constitutional: Negative for weight loss ENT: Negative for stridor Respiratory: Negative for cough or hemoptysis All other systems reviewed and are negative MENTAL STATUS EXAMINATION General Appearance and Behavior: Age appropriate, good hygiene, wearing appropriate clothes, cooperative Cooperation: cooperative Psychomotor Behavior: Psychomotor normal Mood: fine Affect and affective range: congruent with stated mood Thought Process: goal directed Thought Content: hallucinations Speech: Normal volume, Regular rate and rhythm, Suicidal Ideation: Yes, with plan Homicidal Ideation: Denies Hallucinations: Yes Delusions: none elicited Impulse Control: Limited Insight and Judgment: Limited Memory: limited Attention: Attentive Orientation: alert and oriented Assessment and Plan (1) Schizophrenia Treatment Plan Geodon 60mg po BID Increase Depakote DR 250mg po BID Medical: per primary Sitter: per primary Disposition: recommend acute psychiatric inpatient treatment. Will follow. Thanks Case staffed with Dr. Sullivan Mental Status Exam - Vital signs Last Vital Signs Temp 98.3 F 05/08/21 06:38 Pulse 86 05/08/21 06:38 Resp 18 05/08/21 06:39 BP 117/69 05/08/21 06:38 Pulse Ox 98 05/08/21 09:36
--- NOTE | 2021-05-08 10:25 | Emergency Department Report ---
Blank Doc - Documentation Documentation: This morning, patient has no complaints. She is still difficult to evaluate and still demonstrating pressured and nonsensical speech. We are awaiting psychiatric placement.
[2021-05-08] MEDS: LORazepam 2 MG/ML VIAL IM PRN (20:00)
[2021-05-08] MEDS: DIVALPROEX DR 250 MG TAB PO SCH (23:17)
--- NOTE | 2021-05-09 10:30 | Progress Note ---
Subjective - Reason for Consult Consult date: 05/09/21 Reason for consult: psychosis - Chief Complaint Chief complaint: The patient was seen today. She still endorses SI/HI. She also also is still verbalizing hallucinations. The patient was asked about her living situation, in which she states she cannot read or write. She says she would need someone to actually call the shelters and speak for her versus giving her resources to call. The patient is then heard arguing with someone who wasn't there about her fdc situation. REVIEW OF SYSTEMS Constitutional: Negative for weight loss ENT: Negative for stridor Respiratory: Negative for cough or hemoptysis All other systems reviewed and are negative MENTAL STATUS EXAMINATION General Appearance and Behavior: Age appropriate, good hygiene, wearing appropriate clothes, cooperative Cooperation: cooperative Psychomotor Behavior: Psychomotor normal Mood: fine Affect and affective range: congruent with stated mood Thought Process: goal directed Thought Content: hallucinations Speech: Normal volume, Regular rate and rhythm, Suicidal Ideation: Yes, with plan Homicidal Ideation: Denies Hallucinations: Yes Delusions: none elicited Impulse Control: Limited Insight and Judgment: Limited Memory: limited Attention: Attentive Orientation: alert and oriented Assessment and Plan (1) Schizophrenia Treatment Plan Geodon 60mg po BID Increase Depakote DR 250mg po TID Medical: per primary Sitter: per primary Disposition: recommend acute psychiatric inpatient treatment. Will follow. Thanks Case staffed with Dr. Sullivan Mental Status Exam - Vital signs Last Vital Signs Temp 98.2 F 05/08/21 19:44 Pulse 90 05/08/21 19:44 Resp 18 05/08/21 19:44 BP 144/67 05/08/21 19:44 Pulse Ox 96 05/08/21 19:44
[2021-05-09] MEDS: ZIPRASIDONE 60 MG CAP PO SCH ×2 (12:38→22:19)
--- NOTE | 2021-05-09 12:48 | Emergency Department Report ---
Blank Doc - Documentation Documentation: Nurses notes reviewed. Patient continues to exhibit psychosis with intermittent periods of talking to herself and yelling aloud. Patient is taking the ordered oral medication. She refused a.m. vital signs. Patient still requires inpatient treatment and is pending placement.
[2021-05-09] MEDS: DIVALPROEX DR 250 MG TAB PO SCH ×3 (14:43→21:57)
[2021-05-10] MEDS: DIVALPROEX DR 250 MG TAB PO SCH ×2 (09:45→13:40)
[2021-05-10] MEDS: LORazepam 2 MG/ML VIAL IM PRN (09:45)
[2021-05-10] MEDS: ZIPRASIDONE 60 MG CAP PO SCH (10:48)
--- NOTE | 2021-05-10 11:22 | Progress Note ---
Subjective - Reason for Consult Consult date: 05/10/21 Reason for consult: psychosis - Chief Complaint Chief complaint: The patient was seen today. She is hyperverbal and arguing with people who are not there. The patient is easy to redirect, but states she feel as if her meds are not working and she has been worse over the last few days. She also endorses SI, with a plan to cut her wrist. REVIEW OF SYSTEMS Constitutional: Negative for weight loss ENT: Negative for stridor Respiratory: Negative for cough or hemoptysis All other systems reviewed and are negative MENTAL STATUS EXAMINATION General Appearance and Behavior: Age appropriate, good hygiene, wearing appropriate clothes, cooperative Cooperation: cooperative Psychomotor Behavior: Psychomotor normal Mood: fine Affect and affective range: congruent with stated mood Thought Process: goal directed Thought Content: hallucinations Speech: Normal volume, Regular rate and rhythm, Suicidal Ideation: Yes, with plan Homicidal Ideation: Denies Hallucinations: Yes Delusions: none elicited Impulse Control: Limited Insight and Judgment: Limited Memory: limited Attention: Attentive Orientation: alert and oriented Assessment and Plan (1) Schizophrenia Treatment Plan Geodon 60mg po BID Depakote DR 500mg po BID Medical: per primary Sitter: per primary Disposition: recommend acute psychiatric inpatient treatment. Will follow. Thanks Case staffed with Dr. Sullivan Mental Status Exam - Vital signs Last Vital Signs Temp 99.1 F 05/09/21 20:10 Pulse 98 H 05/09/21 20:10 Resp 18 05/09/21 20:10 BP 142/76 05/09/21 20:10 Pulse Ox 98 05/10/21 09:21
[2021-05-10 13:22] VITALS: BP 130/84
[2021-05-10] MEDS ORDERED: DIVALPROEX DR 500 MG TAB PO SCH (22:00)
== END 2021-05-10 15:49 ==
LOC: ED 00:55
DX: R45.851 Suicidal ideations (principal); Z13.30 Encounter for screening examination for mental health and behavioral disorders, unspecified; Z20.822 Contact with and (suspected) exposure to COVID-19; I10 Essential (primary) hypertension; F17.200 Nicotine dependence, unspecified, uncomplicated; Z88.5 Allergy status to narcotic agent; Z88.8 Allergy status to other drugs, medicaments and biological substances
CPT/HCPCS: 36415; 80048; 80164; 80307; 81001; 84703; 85025; 87086; 96372; 99285; J2060; J7030; U0003; 80320; Q0162; G0480

== ENCOUNTER 2021-07-23 17:47 | Emergency (ER) | payer MEDICAID ==
--- NOTE | 2021-07-23 18:59 | Emergency Department Report ---
ED Psych HPI - General Chief Complaint: Psych Stated Complaint: SUICIDAL Time Seen by Provider: 07/23/21 18:19 Source: patient Mode of arrival: Ambulatory Limitations: No Limitations - History of Present Illness Initial Comments: 50-year-old homeless female with a past medical history of bipolar disorder, schizophrenia, diabetes, and hypertension presents to the hospital planing of suicidal ideation and psychosis. Patient is noncompliant with her psychiatric medications. She was admitted to geriatric psych and discharged in May on psychiatric medications. Patient states she has tried to kill herself in the past by jumping out of a vehicle 85 mph. Plan this time is to "cut herself". Patient is also noncompliant with medical medications. She complains of a cough without fever or shortness of breath. History of Covid - Related Data Home Medications Medication Instructions Recorded Confirmed Last Taken Quetiapine Fumarate [SEROquel XR] 400 mg PO QDAY 04/02/16 05/11/21 04/02/16 Previous Rx's Medication Instructions Recorded Last Taken Type Ziprasidone [Geodon] 40 mg PO DAILY 30 Days #30 capsule 04/20/21 Unknown Rx Depakote ER 1,000 mg PO HS 30 Days #30 05/15/[address] [Depakote Dr] 500 mg PO DAILY 30 Days #30 tablet 05/15/21 Unknown Rx QUEtiapine [SEROquel] 300 mg PO QHS 30 Days #90 tablet 05/15/21 Unknown Rx Ziprasidone [Geodon] 60 mg PO BID 30 Days #60 capsule 05/15/21 Unknown Rx traZODone [Desyrel] 50 mg PO QHS 30 Days #30 tablet 05/15/21 Unknown Rx Allergies Allergy/AdvReac Type Severity Reaction Status Date / Time acetaminophen [From Percocet] Allergy Unknown Unknown Verified 05/10/21 15:28 benztropine mesylate Allergy Unknown Unknown Verified 05/10/21 15:30 [From Cogentin] haloperidol [From Haldol] Allergy Unknown Unknown Verified 05/10/21 15:30 haloperidol lactate Allergy Unknown Unknown Verified 05/10/21 15:28 [From Haldol] oxycodone HCl [From Percocet] Allergy Unknown Unknown Verified 05/10/21 15:30 ED Review of Systems ROS: Stated complaint: SUICIDAL Other details as noted in HPI ED Past Medical Hx - Past Medical History Previous Medical History?: Yes Hx Hypertension: Yes Hx Congestive Heart Failure: No Hx Diabetes: Yes Hx Renal Disease: No Hx Arthritis: No Hx Seizures: No Hx Kidney Stones: Yes Hx Psychiatric Treatment: Yes (BIPOLAR, SCHIZOPHRENIA) Hx Asthma: No Hx COPD: No Hx Dementia: No - Surgical History Past Surgical History?: Yes Hx Cholecystectomy: No Hx Appendectomy: No Additional Surgical History: TUBAL LIGATION - Social History Smoking Status: Current Every Day Smoker - Medications Home Medications: Home Medications Medication Instructions Recorded Confirmed Last Taken Type Quetiapine Fumarate [SEROquel XR] 400 mg PO QDAY 04/02/16 05/11/21 04/02/16 History Ziprasidone [Geodon] 40 mg PO DAILY 30 Days #30 capsule 04/20/21 05/11/21 Unknown Rx Depakote ER 1,000 mg PO HS 30 Days #30 05/15/[address] [Depakote Dr] 500 mg PO DAILY 30 Days #30 tablet 05/15/21 Unknown Rx QUEtiapine [SEROquel] 300 mg PO QHS 30 Days #90 tablet 05/15/21 Unknown Rx Ziprasidone [Geodon] 60 mg PO BID 30 Days #60 capsule 05/15/21 Unknown Rx traZODone [Desyrel] 50 mg PO QHS 30 Days #30 tablet 05/15/21 Unknown Rx ED Physical Exam - General Limitations: No Limitations - Other Other exam information: General: No acute distress Head: Atraumatic Eyes: normal appearance Neck: Normal appearance, no midline tenderness Chest: Clear to auscultation bilaterally, intermittent cough noted, sternal chest wall tender CV: Regular rate and rhythm Abdomen: Soft, normal bowel sounds, nontender, nondistended, no rebound or guarding Back: Normal inspection Extremity: Normal inspection, full range of motion Neuro: Alert O x 3, no facial asymmetry, speech clear, no gross motor sensory deficit Psych: Cooperative, arguing/speaking with someone who was not present (psychosis improve) ED Course Vital Signs 07/23/21 07/23/21 18:01 20:28 Temperature 98.4 F 98.2 F Pulse Rate 102 H 83 Respiratory 16 18 Rate Blood Pressure 139/115 123/72 [Left] O2 Sat by Pulse 97 96 Oximetry ED Medical Decision Making - Lab Data Result diagrams: 07/23/21 19:10 07/23/21 19:10 Lab Results 07/23/21 07/23/21 07/23/21 Range/Units 18:48 18:48 19:10 WBC 6.0 (4.5-11.0) K/mm3 RBC 4.38 (3.65-5.03) M/mm3 Hgb 13.3 (10.1-14.3) gm/dl Hct 39.5 (30.3-42.9) % MCV 90 (79-97) fl MCH 30 (28-32) pg MCHC 34 (30-34) % RDW 15.3 H (13.2-15.2) % Plt Count 258 (140-440) K/mm3 Lymph % (Auto) 37.6 H (13.4-35.0) % [place] % (Auto) 6.0 (0.0-7.3) % Eos % (Auto) 0.9 (0.0-4.3) % Baso % (Auto) 0.5 (0.0-1.8) % Lymph # (Auto) 2.3 (1.2-5.4) K/mm3 [place] # (Auto) 0.4 (0.0-0.8) K/mm3 Eos # (Auto) 0.1 (0.0-0.4) K/mm3 Baso # (Auto) 0.0 (0.0-0.1) K/mm3 Seg Neutrophils % 55.0 (40.0-70.0) % Seg Neutrophils # 3.3 (1.8-7.7) K/mm3 Sodium (137-145) mmol/L Potassium (3.6-5.0) mmol/L Chloride (98-107) mmol/L Carbon Dioxide (22-30) mmol/L Anion Gap mmol/L BUN (7-17) mg/dL Creatinine (0.6-1.2) mg/dL Estimated GFR ml/min BUN/Creatinine Ratio % Glucose (65-100) mg/dL Calcium (8.4-10.2) mg/dL Urine Color Yellow (Yellow) Urine Turbidity Clear (Clear) Urine pH 6.0 (5.0-7.0) Ur Specific [place] 1.005 (1.003-1.030) Urine Protein <15 mg/dl (Negative) mg/dL Urine Glucose (UA) Neg (Negative) mg/dL Urine Ketones Neg (Negative) mg/dL Urine Blood Neg (Negative) Urine Nitrite Neg (Negative) Urine Bilirubin Neg (Negative) Urine Urobilinogen < 2.0 (<2.0) mg/dL Ur Leukocyte Esterase Neg (Negative) Urine WBC (Auto) 2.0 (0.0-6.0) /HPF Urine RBC (Auto) 3.0 (0.0-6.0) /HPF U Epithel Cells (Auto) 2.0 (0-13.0) /HPF Urine Bacteria (Auto) 1+ (Negative) /HPF Hyaline Casts 2 /LPF Urine Yeast (Budding) 1+ /HPF Salicylates (2.8-20.0) mg/dL Urine Opiates Screen Presumptive negative Urine Methadone Screen Presumptive negative Acetaminophen (10.0-30.0) ug/mL Ur Barbiturates Screen Presumptive negative Ur Phencyclidine Scrn Presumptive negative Ur Amphetamines Screen Presumptive negative U Benzodiazepines Scrn Presumptive negative Urine Cocaine Screen Presumptive negative U Marijuana (THC) Screen Presumptive negative Drugs of Abuse Note Disclamer Plasma/Serum Alcohol (0-0.07) % 07/23/21 07/23/21 07/23/21 Range/Units 19:10 19:10 19:10 WBC (4.5-11.0) K/mm3 RBC (3.65-5.03) M/mm3 Hgb (10.1-14.3) gm/dl Hct (30.3-42.9) % MCV (79-97) fl MCH (28-32) pg MCHC (30-34) % RDW (13.2-15.2) % Plt Count (140-440) K/mm3 Lymph % (Auto) (13.4-35.0) % [place] % (Auto) (0.0-7.3) % Eos % (Auto) (0.0-4.3) % Baso % (Auto) (0.0-1.8) % Lymph # (Auto) (1.2-5.4) K/mm3 [place] # (Auto) (0.0-0.8) K/mm3 Eos # (Auto) (0.0-0.4) K/mm3 Baso # (Auto) (0.0-0.1) K/mm3 Seg Neutrophils % (40.0-70.0) % Seg Neutrophils # (1.8-7.7) K/mm3 Sodium 142 (137-145) mmol/L Potassium 4.6 (3.6-5.0) mmol/L Chloride 103.1 (98-107) mmol/L Carbon Dioxide 29 (22-30) mmol/L Anion Gap 15 mmol/L BUN 14 (7-17) mg/dL Creatinine 0.8 (0.6-1.2) mg/dL Estimated GFR > 60 ml/min BUN/Creatinine Ratio 18 % Glucose 70 (65-100) mg/dL Calcium 9.9 (8.4-10.2) mg/dL Urine Color (Yellow) Urine Turbidity (Clear) Urine pH (5.0-7.0) Ur Specific [place] (1.003-1.030) Urine Protein (Negative) mg/dL Urine Glucose (UA) (Negative) mg/dL Urine Ketones (Negative) mg/dL Urine Blood (Negative) Urine Nitrite (Negative) Urine Bilirubin (Negative) Urine Urobilinogen (<2.0) mg/dL Ur Leukocyte Esterase (Negative) Urine WBC (Auto) (0.0-6.0) /HPF Urine RBC (Auto) (0.0-6.0) /HPF U Epithel Cells (Auto) (0-13.0) /HPF Urine Bacteria (Auto) (Negative) /HPF Hyaline Casts /LPF Urine Yeast (Budding) /HPF Salicylates < 0.3 L (2.8-20.0) mg/dL Urine Opiates Screen Urine Methadone Screen Acetaminophen 5.0 L (10.0-30.0) ug/mL Ur Barbiturates Screen Ur Phencyclidine Scrn Ur Amphetamines Screen U Benzodiazepines Scrn Urine Cocaine Screen U Marijuana (THC) Screen Drugs of Abuse Note Plasma/Serum Alcohol (0-0.07) % 07/23/21 Range/Units 19:10 WBC (4.5-11.0) K/mm3 RBC (3.65-5.03) M/mm3 Hgb (10.1-14.3) gm/dl Hct (30.3-42.9) % MCV (79-97) fl MCH (28-32) pg MCHC (30-34) % RDW (13.2-15.2) % Plt Count (140-440) K/mm3 Lymph % (Auto) (13.4-35.0) % [place] % (Auto) (0.0-7.3) % Eos % (Auto) (0.0-4.3) % Baso % (Auto) (0.0-1.8) % Lymph # (Auto) (1.2-5.4) K/mm3 [place] # (Auto) (0.0-0.8) K/mm3 Eos # (Auto) (0.0-0.4) K/mm3 Baso # (Auto) (0.0-0.1) K/mm3 Seg Neutrophils % (40.0-70.0) % Seg Neutrophils # (1.8-7.7) K/mm3 Sodium (137-145) mmol/L Potassium (3.6-5.0) mmol/L Chloride (98-107) mmol/L Carbon Dioxide (22-30) mmol/L Anion Gap mmol/L BUN (7-17) mg/dL Creatinine (0.6-1.2) mg/dL Estimated GFR ml/min BUN/Creatinine Ratio % Glucose (65-100) mg/dL Calcium (8.4-10.2) mg/dL Urine Color (Yellow) Urine Turbidity (Clear) Urine pH (5.0-7.0) Ur Specific [place] (1.003-1.030) Urine Protein (Negative) mg/dL Urine Glucose (UA) (Negative) mg/dL Urine Ketones (Negative) mg/dL Urine Blood (Negative) Urine Nitrite (Negative) Urine Bilirubin (Negative) Urine Urobilinogen (<2.0) mg/dL Ur Leukocyte Esterase (Negative) Urine WBC (Auto) (0.0-6.0) /HPF Urine RBC (Auto) (0.0-6.0) /HPF U Epithel Cells (Auto) (0-13.0) /HPF Urine Bacteria (Auto) (Negative) /HPF Hyaline Casts /LPF Urine Yeast (Budding) /HPF Salicylates (2.8-20.0) mg/dL Urine Opiates Screen Urine Methadone Screen Acetaminophen (10.0-30.0) ug/mL Ur Barbiturates Screen Ur Phencyclidine Scrn Ur Amphetamines Screen U Benzodiazepines Scrn Urine Cocaine Screen U Marijuana (THC) Screen Drugs of Abuse Note Plasma/Serum Alcohol < 0.01 (0-0.07) % - Radiology Data Radiology results: report reviewed CHEST 2 VIEWS INDICATION: Medical Clearance Psych, cough. COMPARISON: 04/23/2021 FINDINGS: Support devices: None. Heart: Within normal limits. Lungs/Pleura: No acute air space or interstitial disease. No significant pleural effusion. IMPRESSION: No acute findings. - Medical Decision Making 50-year-old female with psychosis, medical noncompliance, homelessness, suicidal ideation currently on a 1013 is medically cleared. Patient did require IM Geodon and Benadryl for agitated behavior. Awaiting placement by psych. COVID test ordered Critical Care Time: No Critical care attestation.: If time is entered above; I have spent that time in minutes in the direct care of this critically ill patient, excluding procedure time. ED Disposition Clinical Impression: Psychosis, Suicidal ideation, Medical clearance for psychiatric admission Disposition: [address] [place] [address] Is pt being admited?: No Condition: Stable
[2021-07-23 19:14] LABS: Bacteria,Urine 1+ /HPF (Negative); Bilirubin,Urine NEG (Negative); Blood,Urine NEG (Negative); Color,Urine Yellow (Yellow); Hyaline Casts,Urine 2 /LPF; Protein,Urine <15 mg/dL mg/dL (Negative); Urobilinogen,Urine < 2.0 mg/dL (<2.0)
--- NOTE | 2021-07-23 19:26 | XRay Report ---
CHEST 2 VIEWS INDICATION: Medical Clearance Psych, cough. COMPARISON: 04/23/2021 FINDINGS: Support devices: None. Heart: Within normal limits. Lungs/Pleura: No acute air space or interstitial disease. No significant pleural effusion. IMPRESSION: No acute findings. Signer Name: Alberto Castillo MD Signed: 07/23/2021 7:22 PM Workstation Name: [id number]
[2021-07-23 19:31] LABS: Amphetamine Screen,Urine PRESUMPTIVE NEGATIVE; Benzodiazepines Screen,Urine PRESUMPTIVE NEGATIVE; Cannabinoid Screen,Urine PRESUMPTIVE NEGATIVE; Cocaine Screen,Urine PRESUMPTIVE NEGATIVE; Methadone Screen,Urine PRESUMPTIVE NEGATIVE; Opiate Screen,Urine PRESUMPTIVE NEGATIVE
[2021-07-23 19:58] LABS: BUN/Creatinine Ratio 18; Blood Urea Nitrogen 14 mg/dL (7-17); Calcium 9.9 mg/dL (8.4-10.2); Hemolysis Index 4
[2021-07-23 20:03] LABS: Basophils % (Auto) 0.5 % (0.0-1.8); Eosinophils # (Auto) 0.1 K/mm3 (0.0-0.4); Eosinophils % (Auto) 0.9 % (0.0-4.3); Hematocrit 39.5 % (30.3-42.9); Hemoglobin 13.3 gm/dl (10.1-14.3); Lymphocytes # (Auto) 2.3 K/mm3 (1.2-5.4); Lymphocytes % (Auto) 37.6 % (13.4-35.0); Mean Corpuscular HGB Conc 34 % (30-34); Mean Corpuscular Volume 90 fl (79-97); Monocytes # (Auto) 0.4 K/mm3 (0.0-0.8); Platelet Count 258 K/mm3 (140-440); Red Blood Count 4.38 M/mm3 (3.65-5.03); Red Cell Distribution Width 15.3 % (13.2-15.2)
[2021-07-23] MEDS ORDERED: diphenhydrAMINE 50 MG/ML VIAL IM ONE (22:25)
[2021-07-23] MEDS ORDERED: ZIPRASIDONE MESYLATE 20 MG VIAL IM ONE (22:25)
--- NOTE | 2021-07-24 16:26 | Consultation ---
History of Present Illness - Reason for Consult Consult date: 07/24/21 Reason for consult: suicdal ideation - History of Present Psychiatric Illness The patient is a 50 year old female with history of Schizophrenia and well known to the process description writer. The patient reports being suicidal and noncompliant with psychotropic meds. She states "if you sent me away I'll kill myself." PAST PSYCHIATRIC HISTORY: Diagnoses: Bipolar, schizophrenia Suicide attempts or Self-harm behavior: Denies Prior psychiatric hospitalizations: Yes Substance Abuse history: Denies Previous psychiatric medications tried: seroquel Outpatient treatment: Denies PAST MEDICAL HISTORY: None reported or document Family Psychiatric History: None reported or documented SOCIAL HISTORY Marital Status: Single Living Arrangements: Lives alone Employment Status: Disabled Access to guns/weapons: Denies Education: History of Abuse: Denies Legal History: Denies REVIEW OF SYSTEMS Constitutional: Negative for weight loss ENT: Negative for stridor Respiratory: Negative for cough or hemoptysis All other systems reviewed and are negative MENTAL STATUS EXAMINATION General Appearance and Behavior: Age appropriate, good hygiene, wearing appropriate clothes. anxious, cooperative Cooperation: cooperative Psychomotor Behavior: Psychomotor normal Mood: depressed Affect and affective range: congruent with stated mood Thought Process: illogical Thought Content: hallucinations, responding to internal stimuli Speech: Normal volume, Regular rate and rhythm, Suicidal Ideation: yes Homicidal Ideation: Denies Hallucinations: Auditory Delusions: none elicited Impulse Control: impaired Insight and Judgment: Limited Memory: limited Attention: Attentive Orientation: alert and oriented Assessment and Plan (1) Schizophrenia Treatment Plan 1013 Geodon 60mg po BID Medical: per primary Sitter: per primary Disposition: recommend acute psychiatric inpatient treatment. Will follow. Thanks Case staffed with Dr. Sullivan Medications and Allergies Allergies Allergy/AdvReac Type Severity Reaction Status Date / Time acetaminophen [From Percocet] Allergy Unknown Unknown Verified 05/10/21 15:28 benztropine mesylate Allergy Unknown Unknown Verified 05/10/21 15:30 [From Cogentin] haloperidol [From Haldol] Allergy Unknown Unknown Verified 05/10/21 15:30 haloperidol lactate Allergy Unknown Unknown Verified 05/10/21 15:28 [From Haldol] oxycodone HCl [From Percocet] Allergy Unknown Unknown Verified 05/10/21 15:30 Home Medications Medication Instructions Recorded Confirmed Last Taken Type Quetiapine Fumarate [SEROquel XR] 400 mg PO QDAY 10/29/16 12/07/21 10/29/16 History Ziprasidone [Geodon] 40 mg PO DAILY 30 Days #30 capsule 04/20/21 05/11/21 Unknown Rx Depakote ER 1,000 mg PO HS 30 Days #30 05/15/[address] [Depakote Dr] 500 mg PO DAILY 30 Days #30 tablet 05/15/21 Unknown Rx QUEtiapine [SEROquel] 300 mg PO QHS 30 Days #90 tablet 05/15/21 Unknown Rx Ziprasidone [Geodon] 60 mg PO BID 30 Days #60 capsule 05/15/21 Unknown Rx traZODone [Desyrel] 50 mg PO QHS 30 Days #30 tablet 05/15/21 Unknown Rx Mental Status Exam - Vital signs Last Vital Signs Temp 96.2 F L 07/24/21 10:51 Pulse 80 07/24/21 10:51 Resp 18 07/24/21 10:51 BP 130/78 07/24/21 10:51 Pulse Ox 96 07/24/21 15:13 Results Result Diagrams: 07/23/21 19:10 07/23/21 19:10 Abnormal lab results 07/23/21 07/23/21 07/23/21 Range/Units 19:10 19:10 19:10 RDW 15.3 H (13.2-15.2) % Lymph % (Auto) 37.6 H (13.4-35.0) % Salicylates < 0.3 L (2.8-20.0) mg/dL Acetaminophen 5.0 L (10.0-30.0) ug/mL All other labs normal.
[2021-07-24] MEDS ORDERED: ZIPRASIDONE 20 MG CAP PO SCH (22:00)
--- NOTE | 2021-07-24 23:25 | Event Note ---
Date: 07/24/21 50-year-old female here with acute psychosis and suicidal ideation. She was seen by my colleague and was medically cleared for psychiatric evaluation placement. Vital signs reviewed and are stable. No acute events overnight currently awaiting placement.
--- NOTE | 2021-07-25 09:25 | Progress Note ---
Subjective - Reason for Consult Consult date: 07/25/21 Reason for consult: SI - Chief Complaint Chief complaint: The patient was seen this morning. She continues to endorse suicidal ideation with a plan to cut her wrist. REVIEW OF SYSTEMS Constitutional: Negative for weight loss ENT: Negative for stridor Respiratory: Negative for cough or hemoptysis All other systems reviewed and are negative MENTAL STATUS EXAMINATION General Appearance and Behavior: Age appropriate, good hygiene, wearing appropriate clothes. anxious, cooperative Cooperation: cooperative Psychomotor Behavior: Psychomotor normal Mood: depressed Affect and affective range: congruent with stated mood Thought Process: illogical Thought Content: hallucinations, responding to internal stimuli Speech: Normal volume, Regular rate and rhythm, Suicidal Ideation: yes Homicidal Ideation: Denies Hallucinations: Auditory Delusions: none elicited Impulse Control: impaired Insight and Judgment: Limited Memory: limited Attention: Attentive Orientation: alert and oriented Assessment and Plan (1) Schizophrenia Treatment Plan 1013 Geodon 60mg po BID Medical: per primary Sitter: per primary Disposition: recommend acute psychiatric inpatient treatment. Will follow. Thanks Case staffed with Dr. Sullivan Medications and Allergies Mental Status Exam - Vital signs Last Vital Signs Temp 97.4 F L 07/25/21 04:19 Pulse 74 07/25/21 04:19 Resp 18 07/25/21 06:12 BP 131/65 07/25/21 04:19 Pulse Ox 99 07/25/21 06:12
--- NOTE | 2021-07-25 11:15 | Event Note ---
Date: 07/25/21 50-year-old female here with psychosis/SI. She was seen by my colleague and was medically cleared for psychiatric evaluation and placement. Vital signs reviewed and are stable. No acute events overnight. Currently awaiting placement.
[2021-07-25] MEDS ORDERED: LORazepam 2 MG/ML VIAL IM ONE (17:12)
[2021-07-25] MEDS ORDERED: QUEtiapine 100 MG TAB PO SCH (22:00)
[2021-07-25 23:21] VITALS: BP 103/62
== END 2021-07-25 22:40 ==
LOC: ED 17:47
DX: F29 Unspecified psychosis not due to a substance or known physiological condition (principal); R45.851 Suicidal ideations; Z13.30 Encounter for screening examination for mental health and behavioral disorders, unspecified; Z88.6 Allergy status to analgesic agent; Z88.8 Allergy status to other drugs, medicaments and biological substances; Z88.5 Allergy status to narcotic agent; I10 Essential (primary) hypertension; E11.9 Type 2 diabetes mellitus without complications; F17.200 Nicotine dependence, unspecified, uncomplicated; Z20.822 Contact with and (suspected) exposure to COVID-19
CPT/HCPCS: 36415; 71046; 80048; 80307; 81001; 85025; 96372; 99285; J1200; J2060; J3486; U0003; 80320; G0480

== ENCOUNTER 2021-07-25 19:39 | Inpatient (IN) | payer MEDICAID ==
[2021-07-26] MEDS: QUEtiapine 100 MG TAB PO SCH ×2 (05:11→21:42)
[2021-07-26 06:12] LABS: Hematocrit 40.2 % (30.3-42.9); Hemoglobin 13.1 gm/dl (10.1-14.3); Mean Corpuscular HGB Conc 33 % (30-34); Mean Corpuscular Volume 90 fl (79-97); Platelet Count 191 K/mm3 (140-440); Red Blood Count 4.49 M/mm3 (3.65-5.03)
[2021-07-26 06:26] LABS: Alanine Aminotransferase 5 units/L (7-56); Albumin 3.7 g/dL (3.9-5); BUN/Creatinine Ratio 31; Blood Urea Nitrogen 25 mg/dL (7-17); Calcium 9.2 mg/dL (8.4-10.2); Hemolysis Index 6
[2021-07-26 07:05] LABS: Basophils % (Manual) 0 % (0.0-1.8); Total Cells Counted 100
[2021-07-26 07:06] LABS: Ovalocytes Few; Platelet Estimate Consistent w Auto
[2021-07-26 07:12] LABS: Hepatitis C Virus Antibody Non-Reactive (NonReactive)
[2021-07-26 07:13] LABS: Hepatitis B Surface Antigen Non-Reactive (Negative)
--- NOTE | 2021-07-26 11:20 | Consultation ---
History of Present Illness - Reason for Consult Consult date: 07/26/21 - History of Present Illness The patient is a 50 year old female with history of DM, Psychosis, LICHA, MDD, Schizophrenia and several psychiatric visits over the past few months to our facility. The patient reports being suicidal and noncompliant with psychotropic meds and presents again to our facility. Patient denies fever, chills, chest pain, palpitation, productive cough, skin rash, recent ill contact, or known exposure to COVID-19. No reported nursing events. Patient cooperative. Past History Past Medical History: diabetes, other (Schizophrenia) Past Surgical History: No surgical history Social history: no significant social history Family history: no significant family history Medications and Allergies Allergies Allergy/AdvReac Type Severity Reaction Status Date / Time acetaminophen [From Percocet] Allergy Unknown Unknown Verified 05/10/21 15:28 benztropine mesylate Allergy Unknown Unknown Verified 05/10/21 15:30 [From Cogentin] haloperidol [From Haldol] Allergy Unknown Unknown Verified 05/10/21 15:30 haloperidol lactate Allergy Unknown Unknown Verified 05/10/21 15:28 [From Haldol] oxycodone HCl [From Percocet] Allergy Unknown Unknown Verified 05/10/21 15:30 Home Medications Medication Instructions Recorded Confirmed Last Taken Type Quetiapine Fumarate [SEROquel XR] 400 mg PO QDAY 04/02/16 07/26/21 04/02/16 History Ziprasidone [Geodon] 40 mg PO DAILY 30 Days #30 capsule 04/20/21 07/26/21 Unknown Rx Depakote ER 1,000 mg PO HS 30 Days #30 05/15/21 07/26/[address] [Depakote Dr] 500 mg PO DAILY 30 Days #30 tablet 05/15/21 07/26/21 Unknown Rx QUEtiapine [SEROquel] 300 mg PO QHS 30 Days #90 tablet 05/15/21 07/26/21 Unknown Rx Ziprasidone [Geodon] 60 mg PO BID 30 Days #60 capsule 05/15/21 07/26/21 Unknown Rx traZODone [Desyrel] 50 mg PO QHS 30 Days #30 tablet 05/15/21 07/26/21 Unknown Rx Active Meds: Active Medications Quetiapine Fumarate (Quetiapine 100 Mg Tab) 300 mg PO QHS MICHELLE Last Admin: 07/26/21 05:11 Dose: Not Given Review of Systems All systems: negative Exam - Constitutional General appearance: Present: no acute distress, well-nourished - EENT Eyes: Present: PERRL ENT: hearing intact, clear oral mucosa - Neck Neck: Present: supple, normal ROM - Respiratory Respiratory effort: normal Respiratory: bilateral: CTA - Cardiovascular Heart Sounds: Present: S1 & S2. Absent: rub, click - Extremities Extremities: pulses symmetrical, No edema Peripheral Pulses: within normal limits - Abdominal General gastrointestinal: Present: soft, non-tender, non-distended, normal bowel sounds Female genitourinary: Present: normal - Integumentary Integumentary: Present: clear, warm, dry - Musculoskeletal Musculoskeletal: gait normal, strength equal bilaterally - Psychiatric Psychiatric: appropriate mood/affect, intact judgment & insight - Neurologic Neurologic: CNII-XII intact, moves all extremities Results - Labs CBC & Chem 7: 07/26/21 05:14 07/26/21 05:14 Labs: Abnormal lab results 07/26/21 07/26/21 Range/Units 05:14 05:14 WBC 3.5 L (4.5-11.0) K/mm3 Seg Neuts % (Manual) 32.0 L (40.0-70.0) % Lymphocytes % (Manual) 53.0 H (13.4-35.0) % Monocytes % (Manual) 8.0 H (0.0-7.3) % Seg Neutrophils # Man 1.1 L (1.8-7.7) K/mm3 BUN 25 H (7-17) mg/dL ALT 5 L (7-56) units/L Total Protein 6.0 L (6.3-8.2) g/dL Albumin 3.7 L (3.9-5) g/dL Assessment and Plan Diabetes mellitus type 2. Consistent carbohydrate diet. Accu-Cheks and SSRI as needed Depression/anxiety disorder. Per psychiatry. Schizophrenia. Continue medical management Suicidal ideation. Per psychiatry
--- NOTE | 2021-07-26 13:26 | History and Physical Report ---
GP History & Physical - History of Present Illness Date of admission: 07/25/21 Date of Examination: 07/26/21 Reason for Admission: Danger to self, Danger to others, Failure of Outpatient Treatment Chief Complaint: suicidal ideation History of Present Illness: The patient is a 50 year old female with history of bipolar and schizophrenia. The patient was admitted via ED for suicidal ideation. The patient is known to this establishment and has had multiple inpatient psychiatric admissions. She reports being noncompliant with psychotropic meds. She states getting into an arguing with some lady at her personal intermediate when she was accused of stealing clothes. The patient continues to respond to internal stimuli. She endorses suicidal ideation, when asked about her plan she states " I'm trying to fight it off." She admits having command auditory hallucinations " voices telling me to hurt myself but I'm fighting it off." PAST PSYCHIATRIC HISTORY: Diagnoses: Bipolar, schizophrenia Suicide attempts or Self-harm behavior: Denies Prior psychiatric hospitalizations: Yes Substance Abuse history: Denies Previous psychiatric medications tried: seroquel Outpatient treatment: Denies PAST MEDICAL HISTORY: None reported or document Family Psychiatric History: None reported or documented SOCIAL HISTORY Marital Status: Single Living Arrangements: Lives alone Employment Status: Disabled Access to guns/weapons: Denies Education: History of Abuse: Denies Legal History: Denies REVIEW OF SYSTEMS Constitutional: Negative for weight loss ENT: Negative for stridor Respiratory: Negative for cough or hemoptysis All other systems reviewed and are negative MENTAL STATUS EXAMINATION General Appearance and Behavior: Age appropriate, good hygiene, wearing appropriate clothes. anxious, cooperative Cooperation: cooperative Psychomotor Behavior: Psychomotor normal Mood: depressed Affect and affective range: congruent with stated mood Thought Process: illogical Thought Content: hallucinations, responding to internal stimuli Speech: Normal volume, Regular rate and rhythm, Suicidal Ideation: yes Homicidal Ideation: Denies Hallucinations: Auditory Delusions: none elicited Impulse Control: impaired Insight and Judgment: Limited Memory: limited Attention: Attentive Orientation: alert and oriented Assessment and Plan (1) Schizophrenia Treatment Plan Patient admitted for inpatient psychiatric evaluation, medication adjustment and close monitoring The patient's behavior, mood, sleep and appetite will be closely monitored. Patient enrolled in individual and group therapeutic sessions and encouraged to attend. Patient provided with a safe and structured environment. Patient's physical health needs will be addressed by the Hospitalist. Hospitalist Consulted Labs including CBC, CMP, Lipid profile and Hemoglobin A1C levels ordered for baseline reference Social Assessment will be completed and the Car Barn Laborer will work with patient and family to ensure a suitable and safe disposition Medication adjustment will be made as clinically indicated Restarted home medications Usual Wellness Amish/Preservation: - Start Trazodone 50 mg po QHS & 50 mg po QHS PRN between 10 PM & 2 AM for insomnia - Start Melatonin 5 mg po QHS to promote circadian rhythm The patient agreed on the treatment plan, understood the risk, benefit, alternative treatment, potential consequence of no treatment, and gave informed consent. Estimated days: 7 Post hospital care: primary care provider, psychiatric provider Case staffed with Dr. Sullivan Legal Status: InVoluntary Reaction to Hospitalization: Accepting Medications and Allergies Medications and Allergies Allergies Allergy/AdvReac Type Severity Reaction Status Date / Time acetaminophen [From Percocet] Allergy Unknown Unknown Verified 05/10/21 15:28 benztropine mesylate Allergy Unknown Unknown Verified 05/10/21 15:30 [From Cogentin] haloperidol [From Haldol] Allergy Unknown Unknown Verified 05/10/21 15:30 haloperidol lactate Allergy Unknown Unknown Verified 05/10/21 15:28 [From Haldol] oxycodone HCl [From Percocet] Allergy Unknown Unknown Verified 05/10/21 15:30 Home Medications Medication Instructions Recorded Confirmed Last Taken Type Quetiapine Fumarate [SEROquel XR] 400 mg PO QDAY 04/02/16 07/26/21 04/02/16 History Ziprasidone [Geodon] 40 mg PO DAILY 30 Days #30 capsule 04/20/21 07/26/21 Unknown Rx Depakote ER 1,000 mg PO HS 30 Days #30 05/15/21 07/26/[address] [Depakote Dr] 500 mg PO DAILY 30 Days #30 tablet 05/15/21 07/26/21 Unknown Rx QUEtiapine [SEROquel] 300 mg PO QHS 30 Days #90 tablet 05/15/21 07/26/21 Unknown Rx Ziprasidone [Geodon] 60 mg PO BID 30 Days #60 capsule 05/15/21 07/26/21 Unknown Rx traZODone [Desyrel] 50 mg PO QHS 30 Days #30 tablet 05/15/21 07/26/21 Unknown Rx Active Meds: Active Medications Quetiapine Fumarate (Quetiapine 100 Mg Tab) 300 mg PO QHS MICHELLE Last Admin: 07/26/21 05:11 Dose: Not Given Results - Results Labs/Vitals: Laboratory Last Values WBC 3.5 K/mm3 (4.5-11.0) L 07/26/21 05:14 RBC 4.49 M/mm3 (3.65-5.03) 07/26/21 05:14 Hgb 13.1 gm/dl (10.1-14.3) 07/26/21 05:14 Hct 40.2 % (30.3-42.9) 07/26/21 05:14 MCV 90 fl (79-97) 07/26/21 05:14 MCH 29 pg (28-32) 07/26/21 05:14 MCHC 33 % (30-34) 07/26/21 05:14 RDW 15.0 % (13.2-15.2) 07/26/21 05:14 Plt Count 191 K/mm3 (140-440) 07/26/21 05:14 Add Manual Diff Complete 07/26/21 05:14 Total Counted 100 07/26/21 05:14 Seg Neutrophils % Master Of Ceremonies 07/26/21 05:14 Seg Neuts % (Manual) 32.0 % (40.0-70.0) L 07/26/21 05:14 Band Neutrophils % 0 % 07/26/21 05:14 Lymphocytes % (Manual) 53.0 % (13.4-35.0) H 07/26/21 05:14 Reactive Lymphs % (Man) 4.0 % 07/26/21 05:14 Monocytes % (Manual) 8.0 % (0.0-7.3) H 07/26/21 05:14 Eosinophils % (Manual) 2.0 % (0.0-4.3) 07/26/21 05:14 Basophils % (Manual) 0 % (0.0-1.8) 07/26/21 05:14 Metamyelocytes % 1.0 % 07/26/21 05:14 Myelocytes % 0 % 07/26/21 05:14 Promyelocytes % 0 % 07/26/21 05:14 Blast Cells % 0 % 07/26/21 05:14 Nucleated RBC % Not Reportable 07/26/21 05:14 Seg Neutrophils # Man 1.1 K/mm3 (1.8-7.7) L 07/26/21 05:14 Band Neutrophils # 0.0 K/mm3 07/26/21 05:14 Lymphocytes # (Manual) 1.9 K/mm3 (1.2-5.4) 07/26/21 05:14 Abs React Lymphs (Man) 0.1 K/mm3 07/26/21 05:14 Monocytes # (Manual) 0.3 K/mm3 (0.0-0.8) 07/26/21 05:14 Eosinophils # (Manual) 0.1 K/mm3 (0.0-0.4) 07/26/21 05:14 Basophils # (Manual) 0.0 K/mm3 (0.0-0.1) 07/26/21 05:14 Metamyelocytes # 0.0 K/mm3 07/26/21 05:14 Myelocytes # 0.0 K/mm3 07/26/21 05:14 Promyelocytes # 0.0 K/mm3 07/26/21 05:14 Blast Cells # 0.0 K/mm3 07/26/21 05:14 WBC Morphology Not Reportable 07/26/21 05:14 Hypersegmented Neuts Not Reportable 07/26/21 05:14 Hyposegmented Neuts Not Reportable 07/26/21 05:14 Hypogranular Neuts Not Reportable 07/26/21 05:14 Smudge Cells Not Reportable 07/26/21 05:14 Toxic Granulation Not Reportable 07/26/21 05:14 Toxic Vacuolation Not Reportable 07/26/21 05:14 Dohle Bodies Not Reportable 07/26/21 05:14 Pelger-Huet Anomaly Not Reportable 07/26/21 05:14 Samson Rods Not Reportable 07/26/21 05:14 Platelet Estimate Consistent w auto 07/26/21 05:14 Clumped Platelets Not Reportable 07/26/21 05:14 Plt Clumps, EDTA Not Reportable 07/26/21 05:14 Large Platelets Not Reportable 07/26/21 05:14 Giant Platelets Not Reportable 07/26/21 05:14 Platelet Satelliting Not Reportable 07/26/21 05:14 Plt Morphology Comment Not Reportable 07/26/21 05:14 RBC Morphology Not Reportable 07/26/21 05:14 Dimorphic RBCs Not Reportable 07/26/21 05:14 Polychromasia Not Reportable 07/26/21 05:14 Hypochromasia Not Reportable 07/26/21 05:14 Poikilocytosis Not Reportable 07/26/21 05:14 Anisocytosis Not Reportable 07/26/21 05:14 Microcytosis Not Reportable 07/26/21 05:14 Macrocytosis Not Reportable 07/26/21 05:14 Spherocytes Not Reportable 07/26/21 05:14 Pappenheimer Bodies Not Reportable 07/26/21 05:14 Sickle Cells Not Reportable 07/26/21 05:14 Target Cells Not Reportable 07/26/21 05:14 Tear Drop Cells Not Reportable 07/26/21 05:14 Ovalocytes Few 07/26/21 05:14 Helmet Cells Not Reportable 07/26/21 05:14 Adams-Black Bodies Not Reportable 07/26/21 05:14 [place] Rings Not Reportable 07/26/21 05:14 Jesus Cells Not Reportable 07/26/21 05:14 Bite Cells Not Reportable 07/26/21 05:14 Crenated Cell Not Reportable 07/26/21 05:14 Elliptocytes Not Reportable 07/26/21 05:14 Acanthocytes (Spur) Not Reportable 07/26/21 05:14 Rouleaux Not Reportable 07/26/21 05:14 Hemoglobin C Crystals Not Reportable 07/26/21 05:14 Schistocytes Not Reportable 07/26/21 05:14 Malaria parasites Not Reportable 07/26/21 05:14 Billy Bodies Not Reportable 07/26/21 05:14 Hem Pathologist Commnt No 07/26/21 05:14 Sodium 141 mmol/L (137-145) 07/26/21 05:14 Potassium 4.2 mmol/L (3.6-5.0) 07/26/21 05:14 Chloride 105.9 mmol/L (98-107) 07/26/21 05:14 Carbon Dioxide 23 mmol/L (22-30) 07/26/21 05:14 Anion Gap 16 mmol/L 07/26/21 05:14 BUN 25 mg/dL (7-17) H 07/26/21 05:14 Creatinine 0.8 mg/dL (0.6-1.2) 07/26/21 05:14 Estimated GFR > 60 ml/min 07/26/21 05:14 BUN/Creatinine Ratio 31 % 07/26/21 05:14 Glucose 89 mg/dL (65-100) 07/26/21 05:14 Calcium 9.2 mg/dL (8.4-10.2) 07/26/21 05:14 Total Bilirubin < 0.20 mg/dL (0.1-1.2) 07/26/21 05:14 AST 12 units/L (5-40) 07/26/21 05:14 ALT 5 units/L (7-56) L 07/26/21 05:14 Alkaline Phosphatase 80 units/L (35-129) 07/26/21 05:14 Total Protein 6.0 g/dL (6.3-8.2) L 07/26/21 05:14 Albumin 3.7 g/dL (3.9-5) L 07/26/21 05:14 Albumin/Globulin Ratio 1.6 % 07/26/21 05:14 TSH 1.130 mlU/mL (0.270-4.200) 07/26/21 05:14 Hepatitis A IgM Ab Non-reactive (NonReactive) 07/26/21 05:14 Hep Bs Antigen Non-reactive (Negative) 07/26/21 05:14 Hep B Core IgM Ab Non-reactive (NonReactive) 07/26/21 05:14 Hepatitis C Antibody Non-reactive (NonReactive) 07/26/21 05:14 Last Vital Signs Temp 97.9 F 07/26/21 09:29 Pulse 75 07/26/21 09:29 Resp 18 07/26/21 09:29 BP 97/67 07/26/21 09:29 Pulse Ox 95 07/26/21 09:29 Physical Examination - Constitutional Vitals: Vital Signs Temp Pulse Resp BP Pulse Ox 97.9 F 75 18 97/67 95 07/26/21 09:29 07/26/21 09:29 07/26/21 09:29 07/26/21 09:29 07/26/21 09:29 Temperature -Last 24 Hours Temperature 97.9 F Mental Status Exam - Vital signs Last Vital Signs Temp 97.9 F 07/26/21 09:29 Pulse 75 07/26/21 09:29 Resp 18 07/26/21 09:29 BP 97/67 07/26/21 09:29 Pulse Ox 95 07/26/21 09:29 Physician Certification - Certification Statement Physician Certification Statement: This is an acknowledgement statement that URI DENNY is a 50 year old F who requires inpatient psychiatric admission for treatment which could reason ably be expected to improve the patient's condition for Estimated period of time patient will need to remain in the hospital: [ ] Plan for post-hospital care: [ ]
--- NOTE | 2021-07-27 10:00 | Progress Note ---
Subjective Date of service: 07/27/21 Subjective Comment: 07/27/21: The patient was seen this morning. She continues to be suicidal and responding to internal stimuli. REVIEW OF SYSTEMS Constitutional: Negative for weight loss ENT: Negative for stridor Respiratory: Negative for cough or hemoptysis All other systems reviewed and are negative MENTAL STATUS EXAMINATION General Appearance and Behavior: Age appropriate, good hygiene, wearing appropriate clothes. anxious, cooperative Cooperation: cooperative Psychomotor Behavior: Psychomotor normal Mood: depressed Affect and affective range: congruent with stated mood Thought Process: illogical Thought Content: hallucinations, responding to internal stimuli Speech: Normal volume, Regular rate and rhythm, Suicidal Ideation: yes Homicidal Ideation: Denies Hallucinations: Auditory Delusions: none elicited Impulse Control: impaired Insight and Judgment: Limited Memory: limited Attention: Attentive Orientation: alert and oriented Assessment and Plan (1) Schizophrenia Treatment Plan Patient admitted for inpatient psychiatric evaluation, medication adjustment and close monitoring The patient's behavior, mood, sleep and appetite will be closely monitored. Patient enrolled in individual and group therapeutic sessions and encouraged to attend. Patient provided with a safe and structured environment. Patient's physical health needs will be addressed by the Hospitalist. Hospitalist Consulted Labs including CBC, CMP, Lipid profile and Hemoglobin A1C levels ordered for baseline reference Social Assessment will be completed and the Roof Service Technician will work with patient and family to ensure a suitable and safe disposition Medication adjustment will be made as clinically indicated Restarted home medications Usual Wellness Voodoo/Preservation: - Start Trazodone 50 mg po QHS & 50 mg po QHS PRN between 10 PM & 2 AM for insomnia - Start Melatonin 5 mg po QHS to promote circadian rhythm The patient agreed on the treatment plan, understood the risk, benefit, alternative treatment, potential consequence of no treatment, and gave informed consent. Estimated days: 6 Post hospital care: primary care provider, psychiatric provider Case staffed with Dr. Sullivan Legal Status: InVoluntary Reaction to Hospitalization: Accepting Medications and Allergies Medications and Allergies Allergies Allergy/AdvReac Type Severity Reaction Status Date / Time acetaminophen [From Percocet] Allergy Unknown Unknown Verified 05/10/21 15:28 benztropine mesylate Allergy Unknown Unknown Verified 05/10/21 15:30 [From Cogentin] haloperidol [From Haldol] Allergy Unknown Unknown Verified 05/10/21 15:30 haloperidol lactate Allergy Unknown Unknown Verified 05/10/21 15:28 [From Haldol] oxycodone HCl [From Percocet] Allergy Unknown Unknown Verified 05/10/21 15:30 Home Medications Medication Instructions Recorded Confirmed Last Taken Type Quetiapine Fumarate [SEROquel XR] 400 mg PO QDAY 04/02/16 07/26/21 04/02/16 History Ziprasidone [Geodon] 40 mg PO DAILY 30 Days #30 capsule 04/20/21 07/26/21 Unknown Rx Depakote ER 1,000 mg PO HS 30 Days #30 05/15/21 07/26/[address] [Depakote Dr] 500 mg PO DAILY 30 Days #30 tablet 05/15/21 07/26/21 Unknown Rx QUEtiapine [SEROquel] 300 mg PO QHS 30 Days #90 tablet 05/15/21 07/26/21 Unknown Rx Ziprasidone [Geodon] 60 mg PO BID 30 Days #60 capsule 05/15/21 07/26/21 Unknown Rx traZODone [Desyrel] 50 mg PO QHS 30 Days #30 tablet 05/15/21 07/26/21 Unknown Rx Active Meds: Active Medications Quetiapine Fumarate (Quetiapine 100 Mg Tab) 300 mg PO QHS MICHELLE Last Admin: 07/26/21 21:42 Dose: 300 mg Results - Results Labs/Vitals: Laboratory Last Values WBC 3.5 K/mm3 (4.5-11.0) L 07/26/21 05:14 RBC 4.49 M/mm3 (3.65-5.03) 07/26/21 05:14 Hgb 13.1 gm/dl (10.1-14.3) 07/26/21 05:14 Hct 40.2 % (30.3-42.9) 07/26/21 05:14 MCV 90 fl (79-97) 07/26/21 05:14 MCH 29 pg (28-32) 07/26/21 05:14 MCHC 33 % (30-34) 07/26/21 05:14 RDW 15.0 % (13.2-15.2) 07/26/21 05:14 Plt Count 191 K/mm3 (140-440) 07/26/21 05:14 Add Manual Diff Complete 07/26/21 05:14 Total Counted 100 07/26/21 05:14 Seg Neutrophils % Family Law Mediator 07/26/21 05:14 Seg Neuts % (Manual) 32.0 % (40.0-70.0) L 07/26/21 05:14 Band Neutrophils % 0 % 07/26/21 05:14 Lymphocytes % (Manual) 53.0 % (13.4-35.0) H 07/26/21 05:14 Reactive Lymphs % (Man) 4.0 % 07/26/21 05:14 Monocytes % (Manual) 8.0 % (0.0-7.3) H 07/26/21 05:14 Eosinophils % (Manual) 2.0 % (0.0-4.3) 07/26/21 05:14 Basophils % (Manual) 0 % (0.0-1.8) 07/26/21 05:14 Metamyelocytes % 1.0 % 07/26/21 05:14 Myelocytes % 0 % 07/26/21 05:14 Promyelocytes % 0 % 07/26/21 05:14 Blast Cells % 0 % 07/26/21 05:14 Nucleated RBC % Not Reportable 07/26/21 05:14 Seg Neutrophils # Man 1.1 K/mm3 (1.8-7.7) L 07/26/21 05:14 Band Neutrophils # 0.0 K/mm3 07/26/21 05:14 Lymphocytes # (Manual) 1.9 K/mm3 (1.2-5.4) 07/26/21 05:14 Abs React Lymphs (Man) 0.1 K/mm3 07/26/21 05:14 Monocytes # (Manual) 0.3 K/mm3 (0.0-0.8) 07/26/21 05:14 Eosinophils # (Manual) 0.1 K/mm3 (0.0-0.4) 07/26/21 05:14 Basophils # (Manual) 0.0 K/mm3 (0.0-0.1) 07/26/21 05:14 Metamyelocytes # 0.0 K/mm3 07/26/21 05:14 Myelocytes # 0.0 K/mm3 07/26/21 05:14 Promyelocytes # 0.0 K/mm3 07/26/21 05:14 Blast Cells # 0.0 K/mm3 07/26/21 05:14 WBC Morphology Not Reportable 07/26/21 05:14 Hypersegmented Neuts Not Reportable 07/26/21 05:14 Hyposegmented Neuts Not Reportable 07/26/21 05:14 Hypogranular Neuts Not Reportable 07/26/21 05:14 Smudge Cells Not Reportable 07/26/21 05:14 Toxic Granulation Not Reportable 07/26/21 05:14 Toxic Vacuolation Not Reportable 07/26/21 05:14 Dohle Bodies Not Reportable 07/26/21 05:14 Pelger-Huet Anomaly Not Reportable 07/26/21 05:14 Samson Rods Not Reportable 07/26/21 05:14 Platelet Estimate Consistent w auto 07/26/21 05:14 Clumped Platelets Not Reportable 07/26/21 05:14 Plt Clumps, EDTA Not Reportable 07/26/21 05:14 Large Platelets Not Reportable 07/26/21 05:14 Giant Platelets Not Reportable 07/26/21 05:14 Platelet Satelliting Not Reportable 07/26/21 05:14 Plt Morphology Comment Not Reportable 07/26/21 05:14 RBC Morphology Not Reportable 07/26/21 05:14 Dimorphic RBCs Not Reportable 07/26/21 05:14 Polychromasia Not Reportable 07/26/21 05:14 Hypochromasia Not Reportable 07/26/21 05:14 Poikilocytosis Not Reportable 07/26/21 05:14 Anisocytosis Not Reportable 07/26/21 05:14 Microcytosis Not Reportable 07/26/21 05:14 Macrocytosis Not Reportable 07/26/21 05:14 Spherocytes Not Reportable 07/26/21 05:14 Pappenheimer Bodies Not Reportable 07/26/21 05:14 Sickle Cells Not Reportable 07/26/21 05:14 Target Cells Not Reportable 07/26/21 05:14 Tear Drop Cells Not Reportable 07/26/21 05:14 Ovalocytes Few 07/26/21 05:14 Helmet Cells Not Reportable 07/26/21 05:14 Adams-[place] Bodies Not Reportable 07/26/21 05:14 [place] Rings Not Reportable 07/26/21 05:14 [place] Cells Not Reportable 07/26/21 05:14 Bite Cells Not Reportable 07/26/21 05:14 Crenated Cell Not Reportable 07/26/21 05:14 Elliptocytes Not Reportable 07/26/21 05:14 Acanthocytes (Spur) Not Reportable 07/26/21 05:14 Rouleaux Not Reportable 07/26/21 05:14 Hemoglobin C Crystals Not Reportable 07/26/21 05:14 Schistocytes Not Reportable 07/26/21 05:14 Malaria parasites Not Reportable 07/26/21 05:14 Billy Bodies Not Reportable 07/26/21 05:14 Hem Pathologist Commnt No 07/26/21 05:14 Sodium 141 mmol/L (137-145) 07/26/21 05:14 Potassium 4.2 mmol/L (3.6-5.0) 07/26/21 05:14 Chloride 105.9 mmol/L (98-107) 07/26/21 05:14 Carbon Dioxide 23 mmol/L (22-30) 07/26/21 05:14 Anion Gap 16 mmol/L 07/26/21 05:14 BUN 25 mg/dL (7-17) H 07/26/21 05:14 Creatinine 0.8 mg/dL (0.6-1.2) 07/26/21 05:14 Estimated GFR > 60 ml/min 07/26/21 05:14 BUN/Creatinine Ratio 31 % 07/26/21 05:14 Glucose 89 mg/dL (65-100) 07/26/21 05:14 POC Glucose 84 mg/dL (70-105) 07/27/21 07:32 Calcium 9.2 mg/dL (8.4-10.2) 07/26/21 05:14 Total Bilirubin < 0.20 mg/dL (0.1-1.2) 07/26/21 05:14 AST 12 units/L (5-40) 07/26/21 05:14 ALT 5 units/L (7-56) L 07/26/21 05:14 Alkaline Phosphatase 80 units/L (35-129) 07/26/21 05:14 Total Protein 6.0 g/dL (6.3-8.2) L 07/26/21 05:14 Albumin 3.7 g/dL (3.9-5) L 07/26/21 05:14 Albumin/Globulin Ratio 1.6 % 07/26/21 05:14 TSH 1.130 mlU/mL (0.270-4.200) 07/26/21 05:14 Hepatitis A IgM Ab Non-reactive (NonReactive) 07/26/21 05:14 Hep Bs Antigen Non-reactive (Negative) 07/26/21 05:14 Hep B Core IgM Ab Non-reactive (NonReactive) 07/26/21 05:14 Hepatitis C Antibody Non-reactive (NonReactive) 07/26/21 05:14 Last Vital Signs Temp 98.7 F 07/26/21 20:36 Pulse 104 H 07/26/21 20:36 Resp 18 07/26/21 20:36 BP 163/87 07/26/21 20:36 Pulse Ox 97 07/26/21 20:36
[2021-07-27] MEDS: QUEtiapine 100 MG TAB PO SCH ×2 (16:42→21:39)
--- NOTE | 2021-07-28 08:37 | Progress Note ---
Subjective Date of service: 07/28/21 Subjective Comment: 07/27/21: The patient was seen this morning. She continues to be suicidal and responding to internal stimuli. 07/28/21:The patient was seen this morning, she is calm. She reports doing well. She reports sleep and appetite as good. The patient denies any current suicidal/homicidal ideation and denies hallucinations. REVIEW OF SYSTEMS Constitutional: Negative for weight loss ENT: Negative for stridor Respiratory: Negative for cough or hemoptysis All other systems reviewed and are negative MENTAL STATUS EXAMINATION General Appearance and Behavior: Age appropriate, good hygiene, wearing appropriate clothes. anxious, cooperative Cooperation: cooperative Psychomotor Behavior: Psychomotor normal Mood: OK Affect and affective range: congruent with stated mood Thought Process: goal directed Thought Content: Reality oriented Speech: Normal volume, Regular rate and rhythm, Suicidal Ideation:denies Homicidal Ideation: Denies Hallucinations: Denies Delusions: none elicited Impulse Control: impaired Insight and Judgment: Limited Memory: limited Attention: Attentive Orientation: alert and oriented Assessment and Plan (1) Schizophrenia Treatment Plan Patient admitted for inpatient psychiatric evaluation, medication adjustment and close monitoring The patient's behavior, mood, sleep and appetite will be closely monitored. Patient enrolled in individual and group therapeutic sessions and encouraged to attend. Patient provided with a safe and structured environment. Patient's physical health needs will be addressed by the Hospitalist. Hospitalist Consulted Labs including CBC, CMP, Lipid profile and Hemoglobin A1C levels ordered for baseline reference Social Assessment will be completed and the Senior Chemist will work with patient and family to ensure a suitable and safe disposition Medication adjustment will be made as clinically indicated Restarted home medications Usual Wellness Muslim/Preservation: - Start Trazodone 50 mg po QHS & 50 mg po QHS PRN between 10 PM & 2 AM for insomnia - Start Melatonin 5 mg po QHS to promote circadian rhythm The patient agreed on the treatment plan, understood the risk, benefit, alternative treatment, potential consequence of no treatment, and gave informed consent. Estimated days: 5 Post hospital care: primary care provider, psychiatric provider Case staffed with Dr. Sullivan Legal Status: InVoluntary Reaction to Hospitalization: Accepting Medications and Allergies Medications and Allergies Allergies Allergy/AdvReac Type Severity Reaction Status Date / Time acetaminophen [From Percocet] Allergy Unknown Unknown Verified 05/10/21 15:28 benztropine mesylate Allergy Unknown Unknown Verified 05/10/21 15:30 [From Cogentin] haloperidol [From Haldol] Allergy Unknown Unknown Verified 05/10/21 15:30 haloperidol lactate Allergy Unknown Unknown Verified 05/10/21 15:28 [From Haldol] oxycodone HCl [From Percocet] Allergy Unknown Unknown Verified 05/10/21 15:30 Home Medications Medication Instructions Recorded Confirmed Last Taken Type Quetiapine Fumarate [SEROquel XR] 400 mg PO QDAY 04/02/16 07/26/21 04/02/16 History Ziprasidone [Geodon] 40 mg PO DAILY 30 Days #30 capsule 04/20/21 07/26/21 Unknown Rx Depakote ER 1,000 mg PO HS 30 Days #30 05/15/21 07/26/[address] [Depakote Dr] 500 mg PO DAILY 30 Days #30 tablet 05/15/21 07/26/21 Unknown Rx QUEtiapine [SEROquel] 300 mg PO QHS 30 Days #90 tablet 05/15/21 07/26/21 Unknown Rx Ziprasidone [Geodon] 60 mg PO BID 30 Days #60 capsule 05/15/21 07/26/21 Unknown Rx traZODone [Desyrel] 50 mg PO QHS 30 Days #30 tablet 05/15/21 07/26/21 Unknown Rx Active Meds: Active Medications Quetiapine Fumarate (Quetiapine 100 Mg Tab) 400 mg PO QHS [facility] Last Admin: 07/27/21 21:39 Dose: 400 mg Quetiapine Fumarate (Quetiapine 100 Mg Tab) 100 mg PO DAILY [facility] Last Admin: 07/27/21 16:42 Dose: 100 mg Results - Results Labs/Vitals: Laboratory Last Values WBC 3.5 K/mm3 (4.5-11.0) L 07/26/21 05:14 RBC 4.49 M/mm3 (3.65-5.03) 07/26/21 05:14 Hgb 13.1 gm/dl (10.1-14.3) 07/26/21 05:14 Hct 40.2 % (30.3-42.9) 07/26/21 05:14 MCV 90 fl (79-97) 07/26/21 05:14 MCH 29 pg (28-32) 07/26/21 05:14 MCHC 33 % (30-34) 07/26/21 05:14 RDW 15.0 % (13.2-15.2) 07/26/21 05:14 Plt Count 191 K/mm3 (140-440) 07/26/21 05:14 Add Manual Diff Complete 07/26/21 05:14 Total Counted 100 07/26/21 05:14 Seg Neutrophils % Vehicle Detailer 07/26/21 05:14 Seg Neuts % (Manual) 32.0 % (40.0-70.0) L 07/26/21 05:14 Band Neutrophils % 0 % 07/26/21 05:14 Lymphocytes % (Manual) 53.0 % (13.4-35.0) H 07/26/21 05:14 Reactive Lymphs % (Man) 4.0 % 07/26/21 05:14 Monocytes % (Manual) 8.0 % (0.0-7.3) H 07/26/21 05:14 Eosinophils % (Manual) 2.0 % (0.0-4.3) 07/26/21 05:14 Basophils % (Manual) 0 % (0.0-1.8) 07/26/21 05:14 Metamyelocytes % 1.0 % 07/26/21 05:14 Myelocytes % 0 % 07/26/21 05:14 Promyelocytes % 0 % 07/26/21 05:14 Blast Cells % 0 % 07/26/21 05:14 Nucleated RBC % Not Reportable 07/26/21 05:14 Seg Neutrophils # Man 1.1 K/mm3 (1.8-7.7) L 07/26/21 05:14 Band Neutrophils # 0.0 K/mm3 07/26/21 05:14 Lymphocytes # (Manual) 1.9 K/mm3 (1.2-5.4) 07/26/21 05:14 Abs React Lymphs (Man) 0.1 K/mm3 07/26/21 05:14 Monocytes # (Manual) 0.3 K/mm3 (0.0-0.8) 07/26/21 05:14 Eosinophils # (Manual) 0.1 K/mm3 (0.0-0.4) 07/26/21 05:14 Basophils # (Manual) 0.0 K/mm3 (0.0-0.1) 07/26/21 05:14 Metamyelocytes # 0.0 K/mm3 07/26/21 05:14 Myelocytes # 0.0 K/mm3 07/26/21 05:14 Promyelocytes # 0.0 K/mm3 07/26/21 05:14 Blast Cells # 0.0 K/mm3 07/26/21 05:14 WBC Morphology Not Reportable 07/26/21 05:14 Hypersegmented Neuts Not Reportable 07/26/21 05:14 Hyposegmented Neuts Not Reportable 07/26/21 05:14 Hypogranular Neuts Not Reportable 07/26/21 05:14 Smudge Cells Not Reportable 07/26/21 05:14 Toxic Granulation Not Reportable 07/26/21 05:14 Toxic Vacuolation Not Reportable 07/26/21 05:14 Dohle Bodies Not Reportable 07/26/21 05:14 Pelger-Huet Anomaly Not Reportable 07/26/21 05:14 Samson Rods Not Reportable 07/26/21 05:14 Platelet Estimate Consistent w auto 07/26/21 05:14 Clumped Platelets Not Reportable 07/26/21 05:14 Plt Clumps, EDTA Not Reportable 07/26/21 05:14 Large Platelets Not Reportable 07/26/21 05:14 Giant Platelets Not Reportable 07/26/21 05:14 Platelet Satelliting Not Reportable 07/26/21 05:14 Plt Morphology Comment Not Reportable 07/26/21 05:14 RBC Morphology Not Reportable 07/26/21 05:14 Dimorphic RBCs Not Reportable 07/26/21 05:14 Polychromasia Not Reportable 07/26/21 05:14 Hypochromasia Not Reportable 07/26/21 05:14 Poikilocytosis Not Reportable 07/26/21 05:14 Anisocytosis Not Reportable 07/26/21 05:14 Microcytosis Not Reportable 07/26/21 05:14 Macrocytosis Not Reportable 07/26/21 05:14 Spherocytes Not Reportable 07/26/21 05:14 Pappenheimer Bodies Not Reportable 07/26/21 05:14 Sickle Cells Not Reportable 07/26/21 05:14 Target Cells Not Reportable 07/26/21 05:14 Tear Drop Cells Not Reportable 07/26/21 05:14 Ovalocytes Few 07/26/21 05:14 Helmet Cells Not Reportable 07/26/21 05:14 [place] Bodies Not Reportable 07/26/21 05:14 [place] Rings Not Reportable 07/26/21 05:14 [place] Cells Not Reportable 07/26/21 05:14 Bite Cells Not Reportable 07/26/21 05:14 Crenated Cell Not Reportable 07/26/21 05:14 Elliptocytes Not Reportable 07/26/21 05:14 Acanthocytes (Spur) Not Reportable 07/26/21 05:14 Rouleaux Not Reportable 07/26/21 05:14 Hemoglobin C Crystals Not Reportable 07/26/21 05:14 Schistocytes Not Reportable 07/26/21 05:14 Malaria parasites Not Reportable 07/26/21 05:14 Billy Bodies Not Reportable 07/26/21 05:14 Hem Pathologist Commnt No 07/26/21 05:14 Sodium 141 mmol/L (137-145) 07/26/21 05:14 Potassium 4.2 mmol/L (3.6-5.0) 07/26/21 05:14 Chloride 105.9 mmol/L (98-107) 07/26/21 05:14 Carbon Dioxide 23 mmol/L (22-30) 07/26/21 05:14 Anion Gap 16 mmol/L 07/26/21 05:14 BUN 25 mg/dL (7-17) H 07/26/21 05:14 Creatinine 0.8 mg/dL (0.6-1.2) 07/26/21 05:14 Estimated GFR > 60 ml/min 07/26/21 05:14 BUN/Creatinine Ratio 31 % 07/26/21 05:14 Glucose 89 mg/dL (65-100) 07/26/21 05:14 POC Glucose 81 mg/dL (70-105) 07/28/21 07:39 Calcium 9.2 mg/dL (8.4-10.2) 07/26/21 05:14 Total Bilirubin < 0.20 mg/dL (0.1-1.2) 07/26/21 05:14 AST 12 units/L (5-40) 07/26/21 05:14 ALT 5 units/L (7-56) L 07/26/21 05:14 Alkaline Phosphatase 80 units/L (35-129) 07/26/21 05:14 Total Protein 6.0 g/dL (6.3-8.2) L 07/26/21 05:14 Albumin 3.7 g/dL (3.9-5) L 07/26/21 05:14 Albumin/Globulin Ratio 1.6 % 07/26/21 05:14 TSH 1.130 mlU/mL (0.270-4.200) 07/26/21 05:14 Hepatitis A IgM Ab Non-reactive (NonReactive) 07/26/21 05:14 Hep Bs Antigen Non-reactive (Negative) 07/26/21 05:14 Hep B Core IgM Ab Non-reactive (NonReactive) 07/26/21 05:14 Hepatitis C Antibody Non-reactive (NonReactive) 07/26/21 05:14 Last Vital Signs Temp 97.6 F 07/27/21 20:00 Pulse 80 07/27/21 20:00 Resp 16 07/27/21 20:00 BP 107/76 07/27/21 20:00 Pulse Ox 94 07/27/21 20:00
[2021-07-28] MEDS: QUEtiapine 100 MG TAB PO SCH ×2 (09:11→22:00)
[2021-07-29] MEDS ORDERED: ZIPRASIDONE MESYLATE 20 MG VIAL IM PRN (09:22)
[2021-07-29] MEDS ORDERED: LORazepam 2 MG/ML VIAL IV PRN (09:22)
--- NOTE | 2021-07-29 09:22 | Progress Note ---
Subjective Date of service: 07/29/21 Subjective Comment: 07/27/21: The patient was seen this morning. She continues to be suicidal and responding to internal stimuli. 07/28/21:The patient was seen this morning, she is calm. She reports doing well. She reports sleep and appetite as good. The patient denies any current suicidal/homicidal ideation and denies hallucinations. 07/29/21: The patient was seen eating breakfast. She reports doing well. The patient denies any current suicidal/homicidal ideation and denies hallucinations. REVIEW OF SYSTEMS Constitutional: Negative for weight loss ENT: Negative for stridor Respiratory: Negative for cough or hemoptysis All other systems reviewed and are negative MENTAL STATUS EXAMINATION General Appearance and Behavior: Age appropriate, good hygiene, wearing appropriate clothes. anxious, cooperative Cooperation: cooperative Psychomotor Behavior: Psychomotor normal Mood: OK Affect and affective range: congruent with stated mood Thought Process: goal directed Thought Content: Reality oriented Speech: Normal volume, Regular rate and rhythm, Suicidal Ideation:denies Homicidal Ideation: Denies Hallucinations: Denies Delusions: none elicited Impulse Control: impaired Insight and Judgment: Limited Memory: limited Attention: Attentive Orientation: alert and oriented Assessment and Plan (1) Schizophrenia Treatment Plan Patient admitted for inpatient psychiatric evaluation, medication adjustment and close monitoring The patient's behavior, mood, sleep and appetite will be closely monitored. Patient enrolled in individual and group therapeutic sessions and encouraged to attend. Patient provided with a safe and structured environment. Patient's physical health needs will be addressed by the Hospitalist. Hospitalist Consulted Labs including CBC, CMP, Lipid profile and Hemoglobin A1C levels ordered for baseline reference Social Assessment will be completed and the Manager Emergency will work with patient and family to ensure a suitable and safe disposition Medication adjustment will be made as clinically indicated Restarted home medications Usual Wellness Congregation/Preservation: - Start Trazodone 50 mg po QHS & 50 mg po QHS PRN between 10 PM & 2 AM for insomnia - Start Melatonin 5 mg po QHS to promote circadian rhythm The patient agreed on the treatment plan, understood the risk, benefit, alternative treatment, potential consequence of no treatment, and gave informed consent. Estimated days: 5 Post hospital care: primary care provider, psychiatric provider Case staffed with Dr. Sullivan Legal Status: InVoluntary Reaction to Hospitalization: Accepting Medications and Allergies Medications and Allergies Allergies Allergy/AdvReac Type Severity Reaction Status Date / Time acetaminophen [From Percocet] Allergy Unknown Unknown Verified 05/10/21 15:28 benztropine mesylate Allergy Unknown Unknown Verified 05/10/21 15:30 [From Cogentin] haloperidol [From Haldol] Allergy Unknown Unknown Verified 05/10/21 15:30 haloperidol lactate Allergy Unknown Unknown Verified 05/10/21 15:28 [From Haldol] oxycodone HCl [From Percocet] Allergy Unknown Unknown Verified 05/10/21 15:30 Home Medications Medication Instructions Recorded Confirmed Last Taken Type Quetiapine Fumarate [SEROquel XR] 400 mg PO QDAY 04/02/16 07/26/21 04/02/16 History Ziprasidone [Geodon] 40 mg PO DAILY 30 Days #30 capsule 04/20/21 07/26/21 Unknown Rx Depakote ER 1,000 mg PO HS 30 Days #30 05/15/21 07/26/[address] [Depakote Dr] 500 mg PO DAILY 30 Days #30 tablet 05/15/21 07/26/21 Unknown Rx QUEtiapine [SEROquel] 300 mg PO QHS 30 Days #90 tablet 05/15/21 07/26/21 Unknown Rx Ziprasidone [Geodon] 60 mg PO BID 30 Days #60 capsule 05/15/21 07/26/21 Unknown Rx traZODone [Desyrel] 50 mg PO QHS 30 Days #30 tablet 05/15/21 07/26/21 Unknown Rx Active Meds: Active Medications Quetiapine Fumarate (Quetiapine 100 Mg Tab) 400 mg PO QHS [facility] Last Admin: 07/28/21 22:00 Dose: 400 mg Quetiapine Fumarate (Quetiapine 100 Mg Tab) 100 mg PO DAILY [facility] Last Admin: 07/28/21 09:11 Dose: 100 mg Results - Results Labs/Vitals: Laboratory Last Values WBC 3.5 K/mm3 (4.5-11.0) L 07/26/21 05:14 RBC 4.49 M/mm3 (3.65-5.03) 07/26/21 05:14 Hgb 13.1 gm/dl (10.1-14.3) 07/26/21 05:14 Hct 40.2 % (30.3-42.9) 07/26/21 05:14 MCV 90 fl (79-97) 07/26/21 05:14 MCH 29 pg (28-32) 07/26/21 05:14 MCHC 33 % (30-34) 07/26/21 05:14 RDW 15.0 % (13.2-15.2) 07/26/21 05:14 Plt Count 191 K/mm3 (140-440) 07/26/21 05:14 Add Manual Diff Complete 07/26/21 05:14 Total Counted 100 07/26/21 05:14 Seg Neutrophils % Coat Room Attendant 07/26/21 05:14 Seg Neuts % (Manual) 32.0 % (40.0-70.0) L 07/26/21 05:14 Band Neutrophils % 0 % 07/26/21 05:14 Lymphocytes % (Manual) 53.0 % (13.4-35.0) H 07/26/21 05:14 Reactive Lymphs % (Man) 4.0 % 07/26/21 05:14 Monocytes % (Manual) 8.0 % (0.0-7.3) H 07/26/21 05:14 Eosinophils % (Manual) 2.0 % (0.0-4.3) 07/26/21 05:14 Basophils % (Manual) 0 % (0.0-1.8) 07/26/21 05:14 Metamyelocytes % 1.0 % 07/26/21 05:14 Myelocytes % 0 % 07/26/21 05:14 Promyelocytes % 0 % 07/26/21 05:14 Blast Cells % 0 % 07/26/21 05:14 Nucleated RBC % Not Reportable 07/26/21 05:14 Seg Neutrophils # Man 1.1 K/mm3 (1.8-7.7) L 07/26/21 05:14 Band Neutrophils # 0.0 K/mm3 07/26/21 05:14 Lymphocytes # (Manual) 1.9 K/mm3 (1.2-5.4) 07/26/21 05:14 Abs React Lymphs (Man) 0.1 K/mm3 07/26/21 05:14 Monocytes # (Manual) 0.3 K/mm3 (0.0-0.8) 07/26/21 05:14 Eosinophils # (Manual) 0.1 K/mm3 (0.0-0.4) 07/26/21 05:14 Basophils # (Manual) 0.0 K/mm3 (0.0-0.1) 07/26/21 05:14 Metamyelocytes # 0.0 K/mm3 07/26/21 05:14 Myelocytes # 0.0 K/mm3 07/26/21 05:14 Promyelocytes # 0.0 K/mm3 07/26/21 05:14 Blast Cells # 0.0 K/mm3 07/26/21 05:14 WBC Morphology Not Reportable 07/26/21 05:14 Hypersegmented Neuts Not Reportable 07/26/21 05:14 Hyposegmented Neuts Not Reportable 07/26/21 05:14 Hypogranular Neuts Not Reportable 07/26/21 05:14 Smudge Cells Not Reportable 07/26/21 05:14 Toxic Granulation Not Reportable 07/26/21 05:14 Toxic Vacuolation Not Reportable 07/26/21 05:14 Dohle Bodies Not Reportable 07/26/21 05:14 Pelger-Huet Anomaly Not Reportable 07/26/21 05:14 Samson Rods Not Reportable 07/26/21 05:14 Platelet Estimate Consistent w auto 07/26/21 05:14 Clumped Platelets Not Reportable 07/26/21 05:14 Plt Clumps, EDTA Not Reportable 07/26/21 05:14 Large Platelets Not Reportable 07/26/21 05:14 Giant Platelets Not Reportable 07/26/21 05:14 Platelet Satelliting Not Reportable 07/26/21 05:14 Plt Morphology Comment Not Reportable 07/26/21 05:14 RBC Morphology Not Reportable 07/26/21 05:14 Dimorphic RBCs Not Reportable 07/26/21 05:14 Polychromasia Not Reportable 07/26/21 05:14 Hypochromasia Not Reportable 07/26/21 05:14 Poikilocytosis Not Reportable 07/26/21 05:14 Anisocytosis Not Reportable 07/26/21 05:14 Microcytosis Not Reportable 07/26/21 05:14 Macrocytosis Not Reportable 07/26/21 05:14 Spherocytes Not Reportable 07/26/21 05:14 Pappenheimer Bodies Not Reportable 07/26/21 05:14 Sickle Cells Not Reportable 07/26/21 05:14 Target Cells Not Reportable 07/26/21 05:14 Tear Drop Cells Not Reportable 07/26/21 05:14 Ovalocytes Few 07/26/21 05:14 Helmet Cells Not Reportable 07/26/21 05:14 [place] Bodies Not Reportable 07/26/21 05:14 [place] Rings Not Reportable 07/26/21 05:14 [place] Cells Not Reportable 07/26/21 05:14 Bite Cells Not Reportable 07/26/21 05:14 Crenated Cell Not Reportable 07/26/21 05:14 Elliptocytes Not Reportable 07/26/21 05:14 Acanthocytes (Spur) Not Reportable 07/26/21 05:14 Rouleaux Not Reportable 07/26/21 05:14 Hemoglobin C Crystals Not Reportable 07/26/21 05:14 Schistocytes Not Reportable 07/26/21 05:14 Malaria parasites Not Reportable 07/26/21 05:14 Billy Bodies Not Reportable 07/26/21 05:14 Hem Pathologist Commnt No 07/26/21 05:14 Sodium 141 mmol/L (137-145) 07/26/21 05:14 Potassium 4.2 mmol/L (3.6-5.0) 07/26/21 05:14 Chloride 105.9 mmol/L (98-107) 07/26/21 05:14 Carbon Dioxide 23 mmol/L (22-30) 07/26/21 05:14 Anion Gap 16 mmol/L 07/26/21 05:14 BUN 25 mg/dL (7-17) H 07/26/21 05:14 Creatinine 0.8 mg/dL (0.6-1.2) 07/26/21 05:14 Estimated GFR > 60 ml/min 07/26/21 05:14 BUN/Creatinine Ratio 31 % 07/26/21 05:14 Glucose 89 mg/dL (65-100) 07/26/21 05:14 POC Glucose 96 mg/dL (70-105) 07/29/21 07:58 Calcium 9.2 mg/dL (8.4-10.2) 07/26/21 05:14 Total Bilirubin < 0.20 mg/dL (0.1-1.2) 07/26/21 05:14 AST 12 units/L (5-40) 07/26/21 05:14 ALT 5 units/L (7-56) L 07/26/21 05:14 Alkaline Phosphatase 80 units/L (35-129) 07/26/21 05:14 Total Protein 6.0 g/dL (6.3-8.2) L 07/26/21 05:14 Albumin 3.7 g/dL (3.9-5) L 07/26/21 05:14 Albumin/Globulin Ratio 1.6 % 07/26/21 05:14 TSH 1.130 mlU/mL (0.270-4.200) 07/26/21 05:14 Hepatitis A IgM Ab Non-reactive (NonReactive) 07/26/21 05:14 Hep Bs Antigen Non-reactive (Negative) 07/26/21 05:14 Hep B Core IgM Ab Non-reactive (NonReactive) 07/26/21 05:14 Hepatitis C Antibody Non-reactive (NonReactive) 07/26/21 05:14 Last Vital Signs Temp 98.2 F 07/28/21 19:16 Pulse 98 H 07/28/21 19:16 Resp 17 07/28/21 19:16 BP 152/103 07/28/21 19:16 Pulse Ox 95 07/28/21 19:16
[2021-07-29] MEDS: QUEtiapine 100 MG TAB PO SCH ×2 (10:03→21:04)
--- NOTE | 2021-07-30 09:11 | Discharge Summary ---
Providers - Providers Date of Admission: 07/25/21 23:58 Date of discharge: 07/30/21 Attending physician: APURVA MANDUJANO MD 07/25/21 20:59 Consult to Physician [CONS] Routine Comment: Consulting Provider: SERGIO KING Physician Instructions: Reason For Exam: Manage existing medical conditions Primary care physician: [facility], [place] Hospitalization Reason for admission: psychosis Admitting Diagnosis: F20.9 - SCHIZOPHRENIA, UNSPECIFIED Condition: Stable Hospital course: The patient was provided inpatient psychiatric treatment with safe and supportive environment, group/individual therapy, psychiatric medication, medication adjustment, adverse effect monitor, medical evaluation, medical treatment, social service assessment, social support meeting, placement assessment and psycho-education. The patients mood, cognition, behavior, motivation, compliance to treatment and appreciation on family/social support are improved and stabilized. At the time of discharge, the patient had no suicidal ideas, no homicidal ideas, no aggressive thoughts, no endangering be havior and no debilitating adverse effects. The patient agreed on the treatment plan, understood the risk, benefit, alternative treatment, potential consequence of no treatment, and gave informed consent. Disposition: 01 HOME / SELF CARE / HOMELESS Time spent for discharge: 35 Allergies/Adverse Reactions: Allergies acetaminophen [From Percocet] Allergy (Unknown, Verified 05/10/21 15:28) Unknown benztropine mesylate [From Cogentin] Allergy (Unknown, Verified 05/10/21 15:30) Unknown haloperidol [From Haldol] Allergy (Unknown, Verified 05/10/21 15:30) Unknown haloperidol lactate [From Haldol] Allergy (Unknown, Verified 05/10/21 15:28) Unknown oxycodone HCl [From Percocet] Allergy (Unknown, Verified 05/10/21 15:30) Unknown Vital Signs: Last Vital Signs Temp 97.2 F L 07/29/21 08:21 Pulse 98 H 07/28/21 19:16 Resp 16 07/29/21 08:21 BP 108/78 07/29/21 08:21 Pulse Ox 95 07/28/21 19:16 Last Lab: Laboratory Last Values WBC 3.5 K/mm3 (4.5-11.0) L 07/26/21 05:14 RBC 4.49 M/mm3 (3.65-5.03) 07/26/21 05:14 Hgb 13.1 gm/dl (10.1-14.3) 07/26/21 05:14 Hct 40.2 % (30.3-42.9) 07/26/21 05:14 MCV 90 fl (79-97) 07/26/21 05:14 MCH 29 pg (28-32) 07/26/21 05:14 MCHC 33 % (30-34) 07/26/21 05:14 RDW 15.0 % (13.2-15.2) 07/26/21 05:14 Plt Count 191 K/mm3 (140-440) 07/26/21 05:14 Add Manual Diff Complete 07/26/21 05:14 Total Counted 100 07/26/21 05:14 Seg Neutrophils % Research Intern 07/26/21 05:14 Seg Neuts % (Manual) 32.0 % (40.0-70.0) L 07/26/21 05:14 Band Neutrophils % 0 % 07/26/21 05:14 Lymphocytes % (Manual) 53.0 % (13.4-35.0) H 07/26/21 05:14 Reactive Lymphs % (Man) 4.0 % 07/26/21 05:14 Monocytes % (Manual) 8.0 % (0.0-7.3) H 07/26/21 05:14 Eosinophils % (Manual) 2.0 % (0.0-4.3) 07/26/21 05:14 Basophils % (Manual) 0 % (0.0-1.8) 07/26/21 05:14 Metamyelocytes % 1.0 % 07/26/21 05:14 Myelocytes % 0 % 07/26/21 05:14 Promyelocytes % 0 % 07/26/21 05:14 Blast Cells % 0 % 07/26/21 05:14 Nucleated RBC % Not Reportable 07/26/21 05:14 Seg Neutrophils # Man 1.1 K/mm3 (1.8-7.7) L 07/26/21 05:14 Band Neutrophils # 0.0 K/mm3 07/26/21 05:14 Lymphocytes # (Manual) 1.9 K/mm3 (1.2-5.4) 07/26/21 05:14 Abs React Lymphs (Man) 0.1 K/mm3 07/26/21 05:14 Monocytes # (Manual) 0.3 K/mm3 (0.0-0.8) 07/26/21 05:14 Eosinophils # (Manual) 0.1 K/mm3 (0.0-0.4) 07/26/21 05:14 Basophils # (Manual) 0.0 K/mm3 (0.0-0.1) 07/26/21 05:14 Metamyelocytes # 0.0 K/mm3 07/26/21 05:14 Myelocytes # 0.0 K/mm3 07/26/21 05:14 Promyelocytes # 0.0 K/mm3 07/26/21 05:14 Blast Cells # 0.0 K/mm3 07/26/21 05:14 WBC Morphology Not Reportable 07/26/21 05:14 Hypersegmented Neuts Not Reportable 07/26/21 05:14 Hyposegmented Neuts Not Reportable 07/26/21 05:14 Hypogranular Neuts Not Reportable 07/26/21 05:14 Smudge Cells Not Reportable 07/26/21 05:14 Toxic Granulation Not Reportable 07/26/21 05:14 Toxic Vacuolation Not Reportable 07/26/21 05:14 Dohle Bodies Not Reportable 07/26/21 05:14 Pelger-Huet Anomaly Not Reportable 07/26/21 05:14 Samson Rods Not Reportable 07/26/21 05:14 Platelet Estimate Consistent w auto 07/26/21 05:14 Clumped Platelets Not Reportable 07/26/21 05:14 Plt Clumps, EDTA Not Reportable 07/26/21 05:14 Large Platelets Not Reportable 07/26/21 05:14 Giant Platelets Not Reportable 07/26/21 05:14 Platelet Satelliting Not Reportable 07/26/21 05:14 Plt Morphology Comment Not Reportable 07/26/21 05:14 RBC Morphology Not Reportable 07/26/21 05:14 Dimorphic RBCs Not Reportable 07/26/21 05:14 Polychromasia Not Reportable 07/26/21 05:14 Hypochromasia Not Reportable 07/26/21 05:14 Poikilocytosis Not Reportable 07/26/21 05:14 Anisocytosis Not Reportable 07/26/21 05:14 Microcytosis Not Reportable 07/26/21 05:14 Macrocytosis Not Reportable 07/26/21 05:14 Spherocytes Not Reportable 07/26/21 05:14 Pappenheimer Bodies Not Reportable 07/26/21 05:14 Sickle Cells Not Reportable 07/26/21 05:14 Target Cells Not Reportable 07/26/21 05:14 Tear Drop Cells Not Reportable 07/26/21 05:14 Ovalocytes Few 07/26/21 05:14 Helmet Cells Not Reportable 07/26/21 05:14 [place] Bodies Not Reportable 07/26/21 05:14 Hayden Rings Not Reportable 07/26/21 05:14 [place] Cells Not Reportable 07/26/21 05:14 Bite Cells Not Reportable 07/26/21 05:14 Crenated Cell Not Reportable 07/26/21 05:14 Elliptocytes Not Reportable 07/26/21 05:14 Acanthocytes (Spur) Not Reportable 07/26/21 05:14 Rouleaux Not Reportable 07/26/21 05:14 Hemoglobin C Crystals Not Reportable 07/26/21 05:14 Schistocytes Not Reportable 07/26/21 05:14 Malaria parasites Not Reportable 07/26/21 05:14 Billy Bodies Not Reportable 07/26/21 05:14 Hem Pathologist Commnt No 07/26/21 05:14 Sodium 141 mmol/L (137-145) 07/26/21 05:14 Potassium 4.2 mmol/L (3.6-5.0) 07/26/21 05:14 Chloride 105.9 mmol/L (98-107) 07/26/21 05:14 Carbon Dioxide 23 mmol/L (22-30) 07/26/21 05:14 Anion Gap 16 mmol/L 07/26/21 05:14 BUN 25 mg/dL (7-17) H 07/26/21 05:14 Creatinine 0.8 mg/dL (0.6-1.2) 07/26/21 05:14 Estimated GFR > 60 ml/min 07/26/21 05:14 BUN/Creatinine Ratio 31 % 07/26/21 05:14 Glucose 89 mg/dL (65-100) 07/26/21 05:14 POC Glucose 84 mg/dL (70-105) 07/30/21 07:46 Calcium 9.2 mg/dL (8.4-10.2) 07/26/21 05:14 Total Bilirubin < 0.20 mg/dL (0.1-1.2) 07/26/21 05:14 AST 12 units/L (5-40) 07/26/21 05:14 ALT 5 units/L (7-56) L 07/26/21 05:14 Alkaline Phosphatase 80 units/L (35-129) 07/26/21 05:14 Total Protein 6.0 g/dL (6.3-8.2) L 07/26/21 05:14 Albumin 3.7 g/dL (3.9-5) L 07/26/21 05:14 Albumin/Globulin Ratio 1.6 % 07/26/21 05:14 TSH 1.130 mlU/mL (0.270-4.200) 07/26/21 05:14 Hepatitis A IgM Ab Non-reactive (NonReactive) 07/26/21 05:14 Hep Bs Antigen Non-reactive (Negative) 07/26/21 05:14 Hep B Core IgM Ab Non-reactive (NonReactive) 07/26/21 05:14 Hepatitis C Antibody Non-reactive (NonReactive) 07/26/21 05:14 Core Measure Documentation - Palliative Care Palliative Care/ Comfort Measures: Not Applicable - Core Measures Any of the following diagnoses?: none Exam - Constitutional Vitals: Temp Pulse Resp BP Pulse Ox 97.2 F L 98 H 16 108/78 95 07/29/21 08:21 07/28/21 19:16 07/29/21 08:21 07/29/21 08:21 07/28/21 19:16 General appearance: Present: no acute distress - EENT Eyes: Present: PERRL, EOM intact ENT: hearing intact, clear oral mucosa - Neck Neck: Present: supple, normal ROM - Respiratory Respiratory effort: normal Plan Activity: advance as tolerated, no driving until cleared by PCP Weight Bearing Status: Weight Bear as Tolerated Care Plan Goals: Maintain good and stable mental health Plan of Treatment: The patient should be compliant with medications, not to use drugs and not to drink alcohol.The patient understands that if suicidal ideas, homicidal ideas, or any endangering thoughts/behavior arise, they should immediately seek for emergent assistance including but not limited to crisis hot line and emergency room. Follow up with outpatient Psychiatrist and PCP within 7 - 14 days of discharge. Assessment: Schizophrenia Follow up with: ABIMBOLA CARMEN MD [Primary Care Provider] - 7 Days Prescriptions: QUEtiapine [SEROquel] 400 mg PO QHS #30 tablet QUEtiapine [SEROquel] 100 mg PO DAILY #30 tablet
[2021-07-30] MEDS: QUEtiapine 100 MG TAB PO SCH (09:22)
[2021-07-30 13:50] VITALS: BP 121/73
== END 2021-07-30 15:00 | disposition home or self-care (01) | DRG 885 ==
LOC: 3A 19:39 → UNDOADMIN 19:39 → 5A 23:58
PROVIDERS: ADMIT Psychiatry & Neurology Psychiatry; ATTEND Psychiatry & Neurology Psychiatry
DX: F20.9 Schizophrenia, unspecified (principal); E11.9 Type 2 diabetes mellitus without complications; Z20.822 Contact with and (suspected) exposure to COVID-19; F41.9 Anxiety disorder, unspecified; Z88.8 Allergy status to other drugs, medicaments and biological substances
CPT/HCPCS: 36415; 71046; 80048; 80053; 80074; 80307; 80320; 81001; 82962; 84443; 85007; 85025; 96372; 99285; G0378; G0480; J1200; J2060; J3486; U0003

== ENCOUNTER 2021-08-05 23:43 | Emergency (ER) | payer MEDICAID, OTHER ==
[2021-08-06] MEDS ORDERED: QUEtiapine 100 MG TAB PO STA (02:18)
[2021-08-06] MEDS ORDERED: NICOTINE 21 MG/24 HR PATCH TD STA (02:18)
--- NOTE | 2021-08-06 02:23 | Emergency Department Report ---
ED Psych HPI - General Chief Complaint: Psych Stated Complaint: MH Time Seen by Provider: 08/06/21 01:50 Source: patient Mode of arrival: Ambulatory Limitations: No Limitations - History of Present Illness Initial Comments: Chief complaint: "I am suicidal. I have a bad cold. I want to be tested for Covid." HPI: This is a 50-year-old female with history of hypertension, diabetes, schizophrenia, bipolar disorder who presents with suicidal ideation and cold- like symptoms. She denies homicidal ideation or hallucinations. She denies plan to harm herself. She has nasal congestion and cough. No other physical complaints. She desires Seroquel to help her sleep and nicotine patch. MD Complaint: suicidal ideation -: Gradual, days(s) (Several days) Associated Psychiatric Symptoms: suicidal ideation History of same: Yes Quality: constant Improves With: medication Worsens With: none Context: not taking psychiatric Associated Symptoms: other (Cough nasal congestion) Treatments Prior to Arrival: none If Self Harm: admits thoughts of - Related Data Previous Rx's Medication Instructions Recorded Last Taken Type Depakote ER 1,000 mg PO HS 30 Days #30 05/15/21 Unknown Rx Ziprasidone [Geodon] 60 mg PO BID 30 Days #60 capsule 05/15/21 Unknown Rx traZODone [Desyrel] 50 mg PO QHS 30 Days #30 tablet 05/15/21 Unknown Rx QUEtiapine [SEROquel] 100 mg PO DAILY #30 tablet 07/30/21 Unknown Rx QUEtiapine [SEROquel] 400 mg PO QHS #30 tablet 07/30/21 Unknown Rx Allergies Allergy/AdvReac Type Severity Reaction Status Date / Time acetaminophen [From Percocet] Allergy Unknown Unknown Verified 05/10/21 15:28 benztropine mesylate Allergy Unknown Unknown Verified 05/10/21 15:30 [From Cogentin] haloperidol [From Haldol] Allergy Unknown Unknown Verified 05/10/21 15:30 haloperidol lactate Allergy Unknown Unknown Verified 05/10/21 15:28 [From Haldol] oxycodone HCl [From Percocet] Allergy Unknown Unknown Verified 05/10/21 15:30 ED Review of Systems ROS: Stated complaint: MH Other details as noted in HPI Comment: All other systems reviewed and negative Constitutional: denies: chills, fever, malaise Respiratory: cough. denies: shortness of breath, wheezing Cardiovascular: denies: chest pain Gastrointestinal: denies: abdominal pain, nausea Psychiatric: depression, suicidal thoughts. denies: anxiety, auditory hallucinations, visual hallucinations, homicidal thoughts ED Past Medical Hx - Past Medical History Previous Medical History?: Yes Hx Hypertension: Yes Hx Congestive Heart Failure: No Hx Diabetes: Yes Hx Renal Disease: No Hx Arthritis: No Hx Seizures: No Hx Kidney Stones: Yes Hx Psychiatric Treatment: Yes (BIPOLAR, SCHIZOPHRENIA) Hx Asthma: No Hx COPD: No Hx Dementia: No - Surgical History Past Surgical History?: Yes Hx Cholecystectomy: No Hx Appendectomy: No Additional Surgical History: TUBAL LIGATION - Social History Smoking Status: Current Every Day Smoker Substance Use Type: None - Medications Home Medications: Home Medications Medication Instructions Recorded Confirmed Last Taken Type Depakote ER 1,000 mg PO HS 30 Days #30 05/15/21 07/26/21 Unknown Rx Ziprasidone [Geodon] 60 mg PO BID 30 Days #60 capsule 05/15/21 07/26/21 Unknown Rx traZODone [Desyrel] 50 mg PO QHS 30 Days #30 tablet 05/15/21 07/26/21 Unknown Rx QUEtiapine [SEROquel] 100 mg PO DAILY #30 tablet 07/30/21 Unknown Rx QUEtiapine [SEROquel] 400 mg PO QHS #30 tablet 07/30/21 Unknown Rx ED Physical Exam - General Limitations: No Limitations General appearance: alert, in no apparent distress, other (Good eye contact, cooperative, conversant) - Head Head exam: Present: atraumatic, normocephalic - Eye Eye exam: Present: normal appearance - ENT ENT exam: Present: mucous membranes moist - Neck Neck exam: Present: normal inspection, full ROM - Respiratory Respiratory exam: Present: normal lung sounds bilaterally. Absent: respiratory distress, wheezes, rales, rhonchi - Cardiovascular Cardiovascular Exam: Present: regular rate, normal rhythm, normal heart sounds. Absent: systolic murmur, diastolic murmur, rubs, gallop - GI/Abdominal GI/Abdominal exam: Present: soft, normal bowel sounds. Absent: distended, tenderness, guarding, rebound - Extremities Exam Extremities exam: Present: normal inspection - Back Exam Back exam: Present: normal inspection - Neurological Exam Neurological exam: Present: alert, oriented X3 - Psychiatric Psychiatric exam: Present: normal affect, normal mood, suicidal ideation - Skin Skin exam: Present: warm, dry, intact, normal color. Absent: rash ED Course Vital Signs 08/06/21 01:11 Temperature 98.4 F Pulse Rate 94 H Respiratory 16 Rate Blood Pressure 154/82 [Right] O2 Sat by Pulse 97 Oximetry ED Medical Decision Making - Lab Data Result diagrams: 08/06/21 02:13 08/06/21 02:13 - Medical Decision Making 1. This is a 50-year-old female with history of bipolar disorder and schizophrenia presents with suicidal ideation. She does not have a plan to harm her self. She does not have evidence of psychosis. She is not responding to internal stimuli. She is quite insight and conversant. She is medically clear for psychiatric care. Involuntary hold not indicated at this time. Awaiting treatment recommendations by psychiatry team. 2. URI: Supportive care recommended. I have reviewed labs: CBC chemistry serum toxicology all unremarkable. Patient is medically clear for psychiatric care. Critical care attestation.: If time is entered above; I have spent that time in minutes in the direct care of this critically ill patient, excluding procedure time. ED Disposition Clinical Impression: Suicidal ideation, Schizophrenia, Bipolar disorder Disposition: 30 STILL A PATIENT Is pt being admited?: No Does the pt Need Aspirin: No Condition: Stable
[2021-08-06 02:38] LABS: Basophils % (Auto) 0.4 % (0.0-1.8); Eosinophils # (Auto) 0.1 K/mm3 (0.0-0.4); Eosinophils % (Auto) 1.4 % (0.0-4.3); Hematocrit 38.1 % (30.3-42.9); Hemoglobin 12.6 gm/dl (10.1-14.3); Lymphocytes # (Auto) 2.3 K/mm3 (1.2-5.4); Lymphocytes % (Auto) 33.3 % (13.4-35.0); Mean Corpuscular HGB Conc 33 % (30-34); Mean Corpuscular Volume 90 fl (79-97); Monocytes # (Auto) 0.5 K/mm3 (0.0-0.8); Monocytes % (Auto) 6.8 % (0.0-7.3); Platelet Count 231 K/mm3 (140-440); Red Blood Count 4.24 M/mm3 (3.65-5.03); Red Cell Distribution Width 15.2 % (13.2-15.2)
[2021-08-06 02:55] LABS: Blood Urea Nitrogen 15 mg/dL (7-17); Calcium 8.7 mg/dL (8.4-10.2); Hemolysis Index 5
[2021-08-06 02:59] LABS: BUN/Creatinine Ratio 21
[2021-08-06] MEDS ORDERED: NICOTINE 21 MG/24 HR PATCH TD ONE (04:39)
[2021-08-06] MEDS ORDERED: QUEtiapine 100 MG TAB PO ONE (04:39)
--- NOTE | 2021-08-06 10:31 | Progress Note ---
Subjective - Reason for Consult Consult date: 08/06/21 Reason for consult: hallucinations - Chief Complaint Chief complaint: The patient is seen today. She is known to me from several visits. She was just [facility] less than 2 weeks ago. She says "I'm okay" when asked how was she feeling. She's calm and cooperative. She's sleeping but easily arouses. She is complaining of a cold and asking for meds for her cold. She then says "and I'm hallucinating too." She denies SI/HI. PAST PSYCHIATRIC HISTORY: Diagnoses: Bipolar, schizophrenia Suicide attempts or Self-harm behavior: Denies Prior psychiatric hospitalizations: Yes Substance Abuse history: Denies Previous psychiatric medications tried: seroquel Outpatient treatment: Denies PAST MEDICAL HISTORY: None reported or document Family Psychiatric History: None reported or documented SOCIAL HISTORY Marital Status: Single Living Arrangements: Lives alone Employment Status: Disabled Access to guns/weapons: Denies Education: History of Abuse: Denies Legal History: Denies REVIEW OF SYSTEMS Constitutional: Negative for weight loss ENT: Negative for stridor Respiratory: Negative for cough or hemoptysis All other systems reviewed and are negative MENTAL STATUS EXAMINATION General Appearance and Behavior: Age appropriate, good hygiene, wearing appropriate clothes. anxious, cooperative Cooperation: cooperative Psychomotor Behavior: Psychomotor normal Mood: okay Affect and affective range: congruent with stated mood Thought Process: circumstantial Thought Content: hallucinations Speech: Normal volume, Regular rate and rhythm, Suicidal Ideation: yes Homicidal Ideation: Denies Hallucinations: Auditory Delusions: none elicited Impulse Control: impaired Insight and Judgment: Limited Memory: limited Attention: Attentive Orientation: alert and oriented Assessment and Plan (1)Hx Schizophrenia Treatment Plan Continue home meds Medical: per primary Sitter: per primary Disposition: Do not recommend acute psychiatric inpatient treatment. Will sign off. Thanks Case staffed with Dr. Sullivan Mental Status Exam - Vital signs Last Vital Signs Temp 98.4 F 08/06/21 01:11 Pulse 94 H 08/06/21 01:11 Resp 16 08/06/21 01:11 BP 154/82 08/06/21 01:11 Pulse Ox 97 08/06/21 01:11
--- NOTE | 2021-08-06 12:27 | Emergency Department Report ---
Blank Doc - Documentation Documentation: 50-year-old female initially expressing suicidal ideation for 24 hours, reques ting Covid test, and recently diagnosed from [facility] 2 weeks ago. Patient evaluated by mental health today and deemed not suicidal or homicidal. Recommend discharge to continue current medications. Diagnosis of schizophrenia
[2021-08-06 13:08] VITALS: BP 146/86
== END 2021-08-06 13:07 | disposition still patient (30) ==
LOC: ED 23:43
DX: R45.851 Suicidal ideations (principal); F20.9 Schizophrenia, unspecified; F31.9 Bipolar disorder, unspecified; Z20.822 Contact with and (suspected) exposure to COVID-19; F17.200 Nicotine dependence, unspecified, uncomplicated; Z88.5 Allergy status to narcotic agent
CPT/HCPCS: 36415; 80048; 85025; 99284; U0003; 80320; G0480

== ENCOUNTER 2021-08-17 10:40 | Emergency (ER) | payer MEDICAID ==
[2021-08-17 11:07] VITALS: BP 149/94
[2021-08-17 11:19] LABS: Bacteria,Urine 1+ /HPF (Negative); Bilirubin,Urine NEG (Negative); Blood,Urine NEG (Negative); Color,Urine Straw (Yellow); Protein,Urine <15 mg/dL mg/dL (Negative); Urobilinogen,Urine < 2.0 mg/dL (<2.0)
[2021-08-17] MEDS ORDERED: SUCRALFATE 1 GM/10 ML ORAL LIQD PO ONE (11:51)
[2021-08-17] MEDS ORDERED: ONDANSETRON 4 MG ODT TAB PO ONE (11:51)
--- NOTE | 2021-08-17 11:54 | Emergency Department Report ---
ED General Adult HPI - General Chief complaint: Nausea/Vomiting/Diarrhea Stated complaint: VOMTING X 1 DAY Time Seen by Provider: 08/17/21 11:28 Source: patient, EMS ( EMS documentation not available at time of chart dictation ), RN notes reviewed, old records reviewed Mode of arrival: Ambulatory Limitations: No Limitations - History of Present Illness Initial comments: Patient is a 50-year-old female. She presents to the ER today with complaint of painless nausea and vomiting. It is now resolved. The patient is not homicidal or suicidal. She denies chest pain. She denies irritative and obstructive urinary symptoms. She is asking to be discharged. -: days(s) Location: abdomen Severity scale (0 -10): 0 Consistency: now resolved Improves with: none Worsens with: none Associated Symptoms: denies other symptoms - Related Data Previous Rx's Medication Instructions Recorded Last Taken Type Depakote ER 1,000 mg PO HS 30 Days #30 05/15/21 Unknown Rx Ziprasidone [Geodon] 60 mg PO BID 30 Days #60 capsule 05/15/21 Unknown Rx traZODone [Desyrel] 50 mg PO QHS 30 Days #30 tablet 05/15/21 Unknown Rx QUEtiapine [SEROquel] 100 mg PO DAILY #30 tablet 07/30/21 Unknown Rx QUEtiapine [SEROquel] 400 mg PO QHS #30 tablet 07/30/21 Unknown Rx Kisha Root [Kisha] 250 mg PO QID PRN #30 capsule 08/17/21 Unknown Rx Allergies Allergy/AdvReac Type Severity Reaction Status Date / Time acetaminophen [From Percocet] Allergy Unknown Unknown Verified 05/10/21 15:28 benztropine mesylate Allergy Unknown Unknown Verified 05/10/21 15:30 [From Cogentin] haloperidol [From Haldol] Allergy Unknown Unknown Verified 05/10/21 15:30 haloperidol lactate Allergy Unknown Unknown Verified 05/10/21 15:28 [From Haldol] oxycodone HCl [From Percocet] Allergy Unknown Unknown Verified 05/10/21 15:30 perphenazine AdvReac Swelling Verified 08/17/21 12:36 ED Review of Systems ROS: Stated complaint: VOMTING X 1 DAY Other details as noted in HPI Constitutional: denies: fever Eyes: denies: eye discharge ENT: denies: hearing loss Respiratory: denies: cough Cardiovascular: denies: chest pain Gastrointestinal: nausea, vomiting, diarrhea Genitourinary: denies: dysuria Psychiatric: denies: depression, auditory hallucinations, visual hallucinations, homicidal thoughts, suicidal thoughts ED Past Medical Hx - Past Medical History Hx Hypertension: Yes Hx Congestive Heart Failure: No Hx Diabetes: Yes Hx Renal Disease: No Hx Arthritis: No Hx Seizures: No Hx Kidney Stones: Yes Hx Psychiatric Treatment: Yes (BIPOLAR, SCHIZOPHRENIA) Hx Asthma: No Hx COPD: No Hx Dementia: No - Surgical History Hx Cholecystectomy: No Hx Appendectomy: No Additional Surgical History: TUBAL LIGATION - Social History Smoking Status: Current Every Day Smoker Substance Use Type: None - Medications Home Medications: Home Medications Medication Instructions Recorded Confirmed Last Taken Type Depakote ER 1,000 mg PO HS 30 Days #30 05/15/21 07/26/21 Unknown Rx Ziprasidone [Geodon] 60 mg PO BID 30 Days #60 capsule 05/15/21 07/26/21 Unknown Rx traZODone [Desyrel] 50 mg PO QHS 30 Days #30 tablet 05/15/21 07/26/21 Unknown Rx QUEtiapine [SEROquel] 100 mg PO DAILY #30 tablet 07/30/21 Unknown Rx QUEtiapine [SEROquel] 400 mg PO QHS #30 tablet 07/30/21 Unknown Rx Kisha Root [Kisha] 250 mg PO QID PRN #30 capsule 08/17/21 Unknown Rx ED Physical Exam - General Limitations: No Limitations General appearance: alert, in no apparent distress - Head Head exam: Present: atraumatic, normocephalic - Eye Eye exam: Present: normal appearance, EOMI. Absent: nystagmus - ENT ENT exam: Present: normal exam, normal orophraynx, mucous membranes moist, normal external ear exam - Neck Neck exam: Present: normal inspection, full ROM. Absent: tenderness, meningismus - Respiratory Respiratory exam: Present: normal lung sounds bilaterally. Absent: respiratory distress, wheezes, rales, rhonchi, stridor, decreased breath sounds - Cardiovascular Cardiovascular Exam: Present: regular rate, normal rhythm, normal heart sounds. Absent: bradycardia, tachycardia, irregular rhythm, systolic murmur, diastolic murmur, rubs, gallop - GI/Abdominal GI/Abdominal exam: Present: soft, normal bowel sounds. Absent: distended, tenderness, guarding, rebound, rigid, pulsatile mass - Extremities Exam Extremities exam: Present: normal inspection, full ROM, other (2+ pulses noted in the bilateral upper and lower extremities. There is no palpable cord. negative Homans sign. Muscular compartments are soft. The pelvis is stable.). Absent: pedal edema, calf tenderness - Back Exam Back exam: Present: normal inspection, full ROM. Absent: tenderness, CVA tenderness (R), CVA tenderness (L), paraspinal tenderness, vertebral tenderness - Neurological Exam Neurological exam: Present: alert, oriented X3, normal gait, other (No facial droop. Tongue midline. Extraocular movements intact bilaterally. Facial sensation intact to light touch in V1, V2, V3 distribution bilaterally. 5 and a 5 strength in 4 extremities. Sensation intact to light touch in 4 extremit ies.). Absent: motor sensory deficit - Psychiatric Psychiatric exam: Present: normal affect, normal mood. Absent: homicidal ideation, suicidal ideation - Skin Skin exam: Present: warm, dry, intact, normal color. Absent: rash ED Course Vital Signs 08/17/21 08/17/21 10:46 10:47 Temperature 98.3 F 98.9 F Pulse Rate 92 H 94 H Respiratory 20 18 Rate Blood Pressure 147/92 149/94 [Left] O2 Sat by Pulse 97 93 Oximetry - Reevaluation(s) Reevaluation #1: 08/17/21 13:44 The patient is not hypoxic. O2 sat 97%. ED Medical Decision Making - Lab Data Vital Signs 08/17/21 08/17/21 10:46 10:47 Temperature 98.3 F 98.9 F Pulse Rate 92 H 94 H Respiratory 20 18 Rate Blood Pressure 147/92 149/94 [Left] O2 Sat by Pulse 97 93 Oximetry - EKG Data -: EKG Interpreted by Md EKG shows normal: sinus rhythm Rate: normal - EKG Data 08/17/21 13:41 The EKG is interpreted at 12: 02 Sinus rhythm, rate 80 bpm. Normal axis, normal intervals, high left ventricular voltage, and motion artifact. There is normal P wave axis. This EKG is not a STEMI. - Medical Decision Making Differential diagnosis, including but not limited to: Enteritis, nausea, vomiting diarrhea, encounter for medical examination, malingering, secondary gain Assessment and plan: 50-year-old female, who is afebrile, clinically sober, with a GCS of 15, with no active vomiting, nausea, appears comfortable, does not meet criteria for 1013 or involuntary hold, with a soft benign abdominal examination. Patient does not meet criteria for 1013 hold or involuntary confinement. Recommend CBC, basic laboratory studies. Patient agreeable to this. However, subsequently, walking around, speaking on the phone, making multiple requests to be discharged. Patient eloped from the emergency room without telling myself or other individuals. Critical care attestation.: If time is entered above; I have spent that time in minutes in the direct care of this critically ill patient, excluding procedure time. ED Disposition Clinical Impression: History of nausea and vomiting Disposition: 07 LEFT AWOL/ELOPED Is pt being admited?: No Does the pt Need Aspirin: No Condition: Undetermined Additional Instructions: As we discussed, you have left the hospital/emergency room AGAINST MEDICAL ADVICE. By leaving, you risked , disability, paralysis, permanent loss of quality of life. The ER is open 24 hours a day, 7 days a week. It never closes. Please return to the emergency room right away if and when you change your mind. If you decide not to return to the emergency room, please follow-up with the listed physician referrals as soon as possible. Prescriptions: Kisha Root [Kisha] 250 mg PO QID PRN #30 capsule PRN Reason: Nausea
[2021-08-17 13:51] LABS: Hematocrit 37.5 % (30.3-42.9); Hemoglobin 13.1 gm/dl (10.1-14.3); Mean Corpuscular HGB Conc 35 % (30-34); Mean Corpuscular Volume 89 fl (79-97); Platelet Count 243 K/mm3 (140-440); Red Blood Count 4.23 M/mm3 (3.65-5.03)
[2021-08-17 14:11] LABS: Alanine Aminotransferase 7 units/L (7-56); Albumin 4.3 g/dL (3.9-5); Blood Urea Nitrogen 17 mg/dL (7-17); Hemolysis Index 16
[2021-08-17 14:18] LABS: BUN/Creatinine Ratio 24
== END 2021-08-17 14:11 | disposition left against medical advice (07) ==
LOC: ED 10:40
DX: R11.2 Nausea with vomiting, unspecified (principal); F17.200 Nicotine dependence, unspecified, uncomplicated
CPT/HCPCS: 36415; 80053; 80320; 81001; 83735; 85027; 93005; 99283; J3490; G0480; Q0162

== ENCOUNTER 2021-08-17 15:06 | Emergency (ER) | payer MEDICAID ==
[2021-08-17 15:19] VITALS: BP 150/93
--- NOTE | 2021-08-18 07:26 | Emergency Department Report ---
- General Chief Complaint: Upper Respiratory Infection Stated Complaint: VERY SICK Time Seen by Provider: 08/18/21 07:20 Source: patient Mode of arrival: Ambulatory Limitations: No Limitations - History of Present Illness Initial Comments: pt presents to ed with complaint of upper resp congestion chest cold, cough no fever no sob no amy denies fever or chs pain MD Complaint: cough, nasal congestion -: Gradual, days(s) Severity: mild Associated Symptoms: denies other symptoms, rhinorrhea, nasal congestion. denies: fever, chills, myalgias, diaphoresis, headache Treatments Prior to Arrival: none - Related Data Previous Rx's Medication Instructions Recorded Last Taken Type Depakote ER 1,000 mg PO HS 30 Days #30 05/15/21 Unknown Rx Ziprasidone [Geodon] 60 mg PO BID 30 Days #60 capsule 05/15/21 Unknown Rx traZODone [Desyrel] 50 mg PO QHS 30 Days #30 tablet 05/15/21 Unknown Rx QUEtiapine [SEROquel] 100 mg PO DAILY #30 tablet 07/30/21 Unknown Rx QUEtiapine [SEROquel] 400 mg PO QHS #30 tablet 07/30/21 Unknown Rx Kisha Root [Kisha] 250 mg PO QID PRN #30 capsule 08/17/21 Unknown Rx Amoxicillin/Potassium Clav 1 each PO BID #14 08/18/21 Unknown Rx [Augmentin 875-125 Tablet] Allergies Allergy/AdvReac Type Severity Reaction Status Date / Time acetaminophen [From Percocet] Allergy Unknown Unknown Verified 05/10/21 15:28 benztropine mesylate Allergy Unknown Unknown Verified 05/10/21 15:30 [From Cogentin] haloperidol [From Haldol] Allergy Unknown Unknown Verified 05/10/21 15:30 haloperidol lactate Allergy Unknown Unknown Verified 05/10/21 15:28 [From Haldol] oxycodone HCl [From Percocet] Allergy Unknown Unknown Verified 05/10/21 15:30 perphenazine AdvReac Swelling Verified 08/17/21 12:36 ED Review of Systems ROS: Stated complaint: VERY SICK Other details as noted in HPI Constitutional: denies: chills, fever Eyes: denies: eye pain, eye discharge, vision change ENT: denies: ear pain, throat pain Respiratory: denies: cough, shortness of breath, wheezing Cardiovascular: denies: chest pain, palpitations Endocrine: no symptoms reported Gastrointestinal: denies: abdominal pain, nausea, diarrhea Genitourinary: denies: urgency, dysuria, discharge Musculoskeletal: denies: back pain, joint swelling, arthralgia Skin: denies: rash, lesions Neurological: denies: headache, weakness, paresthesias Psychiatric: denies: anxiety, depression Hematological/Lymphatic: denies: easy bleeding, easy bruising ED Past Medical Hx - Past Medical History Previous Medical History?: Yes Hx Hypertension: Yes Hx Congestive Heart Failure: No Hx Diabetes: Yes Hx Renal Disease: No Hx Arthritis: No Hx Seizures: No Hx Kidney Stones: Yes Hx Psychiatric Treatment: Yes (BIPOLAR, SCHIZOPHRENIA) Hx Asthma: No Hx COPD: No Hx Dementia: No - Surgical History Past Surgical History?: Yes Hx Cholecystectomy: No Hx Appendectomy: No Additional Surgical History: TUBAL LIGATION - Social History Smoking Status: Current Every Day Smoker Substance Use Type: None - Medications Home Medications: Home Medications Medication Instructions Recorded Confirmed Last Taken Type Depakote ER 1,000 mg PO HS 30 Days #30 05/15/21 07/26/21 Unknown Rx Ziprasidone [Geodon] 60 mg PO BID 30 Days #60 capsule 05/15/21 07/26/21 Unknown Rx traZODone [Desyrel] 50 mg PO QHS 30 Days #30 tablet 05/15/21 07/26/21 Unknown Rx QUEtiapine [SEROquel] 100 mg PO DAILY #30 tablet 07/30/21 Unknown Rx QUEtiapine [SEROquel] 400 mg PO QHS #30 tablet 07/30/21 Unknown Rx Kisha Root [Kisha] 250 mg PO QID PRN #30 capsule 08/17/21 Unknown Rx Amoxicillin/Potassium Clav 1 each PO BID #14 08/18/21 Unknown Rx [Augmentin 875-125 Tablet] ED Physical Exam - General Limitations: No Limitations General appearance: alert, in no apparent distress - Head Head exam: Present: atraumatic, normocephalic - Eye Eye exam: Present: normal appearance - ENT ENT exam: Present: mucous membranes moist - Neck Neck exam: Present: normal inspection - Respiratory Respiratory exam: Present: normal lung sounds bilaterally. Absent: respiratory distress - Cardiovascular Cardiovascular Exam: Present: regular rate, normal rhythm. Absent: systolic murmur, diastolic murmur, rubs, gallop - GI/Abdominal GI/Abdominal exam: Present: soft, normal bowel sounds - Extremities Exam Extremities exam: Present: normal inspection - Back Exam Back exam: Present: normal inspection - Neurological Exam Neurological exam: Present: alert, oriented X3 - Psychiatric Psychiatric exam: Present: normal affect, normal mood - Skin Skin exam: Present: warm, dry, intact, normal color. Absent: rash ED Course Vital Signs 08/17/21 15:14 Temperature 98.3 F Pulse Rate 87 Respiratory 16 Rate Blood Pressure 150/93 [Left] O2 Sat by Pulse 95 Oximetry Critical care attestation.: If time is entered above; I have spent that time in minutes in the direct care of this critically ill patient, excluding procedure time. ED Disposition Clinical Impression: URI (upper respiratory infection) Disposition: HOME / SELF CARE / HOMELESS Is pt being admited?: No Does the pt Need Aspirin: No Condition: Stable Instructions: Viral Respiratory Infection, [id number] Prescriptions: Amoxicillin/Potassium Clav [Augmentin 875-125 Tablet] 1 each PO BID #14 Referrals: PRIMARY CARE, [Primary Care Provider] - 3-5 Days
== END 2021-08-18 09:32 | disposition home or self-care (01) ==
LOC: ED 15:06
DX: J06.9 Acute upper respiratory infection, unspecified (principal); I10 Essential (primary) hypertension; E11.9 Type 2 diabetes mellitus without complications; N20.0 Calculus of kidney; F31.9 Bipolar disorder, unspecified; Z79.899 Other long term (current) drug therapy; Z98.890 Other specified postprocedural states; Z88.6 Allergy status to analgesic agent; Z88.3 Allergy status to other anti-infective agents; Z91.09 Other allergy status, other than to drugs and biological substances; F17.200 Nicotine dependence, unspecified, uncomplicated
CPT/HCPCS: 99282

== ENCOUNTER 2021-08-18 11:44 | Emergency (ER) | payer MEDICAID ==
--- NOTE | 2021-08-18 12:12 | Emergency Department Report ---
HPI - General Chief Complaint: Psych Time Seen by Provider: 08/18/21 12:03 - [facility] HPI: Room 16 The patient is a 50-year-old female present with a chief complaint of suicidal ideation. Patient states she felt suicidal for 1 day. Patient denies any atte mpts at harming herself but states her plan was to cut her wrist. Patient has history of bipolar disorder and schizophrenia. ED Past Medical Hx - Past Medical History Hx Hypertension: Yes Hx Diabetes: Yes Hx Kidney Stones: Yes Hx Psychiatric Treatment: Yes (BIPOLAR, SCHIZOPHRENIA) - Surgical History Additional Surgical History: TUBAL LIGATION - Family History Family history: no significant - Social History Smoking Status: Current Every Day Smoker (1 pack/day) Substance Use Type: None (No illicit drugs x6 months), Alcohol (None x6 months) - Medications Home Medications: Home Medications Medication Instructions Recorded Confirmed Last Taken Type QUEtiapine [SEROquel] 400 mg PO QHS 08/18/21 08/18/21 Unknown History ED Review of Systems ROS: Stated complaint: SI Other details as noted in HPI Constitutional: no symptoms reported Eyes: denies: eye pain ENT: denies: throat pain Respiratory: no symptoms reported Cardiovascular: denies: chest pain Endocrine: no symptoms reported Gastrointestinal: denies: abdominal pain Genitourinary: denies: dysuria Musculoskeletal: denies: back pain Neurological: denies: headache Psychiatric: suicidal thoughts Physical Exam - Physical Exam Vital Signs: Vital Signs 08/18/21 11:45 Temperature 98 F Pulse Rate 100 H Respiratory 14 Rate Blood Pressure 140/90 [Left] O2 Sat by Pulse 99 Oximetry Physical Exam: GENERAL: The patient is well-developed well-nourished female sitting in chair not appearing to be in acute distress. [] HEENT: Normocephalic. Atraumatic. Extraocular motions are intact. Patient has moist mucous membranes. NECK: Supple. Trachea midline CHEST/LUNGS: Clear to auscultation. There is no respiratory distress noted. HEART/CARDIOVASCULAR: Regular. There is no tachycardia. There is no gallop rub or murmur. ABDOMEN: Abdomen is soft, nontender. Patient has normal bowel sounds. There is no abdominal distention. SKIN: There is no rash. There is no edema. There is no diaphoresis. NEURO: The patient is awake, alert, and oriented. The patient is cooperative. The patient has no focal neurologic deficits. The patient has normal speech. GCS 15 MUSCULOSKELETAL: There is no evidence of acute injury. ED Course Vital Signs 08/18/21 11:45 Temperature 98 F Pulse Rate 100 H Respiratory 14 Rate Blood Pressure 140/90 [Left] O2 Sat by Pulse 99 Oximetry ED Medical Decision Making - Lab Data Result diagrams: 08/18/21 12:44 08/18/21 12:44 Laboratory Tests 08/18/21 08/18/21 08/18/21 12:12 12:12 12:44 WBC RBC Hgb Hct MCV MCH MCHC RDW Plt Count Lymph % (Auto) [place] % (Auto) Eos % (Auto) Baso % (Auto) Lymph # (Auto) [place] # (Auto) Eos # (Auto) Baso # (Auto) Seg Neutrophils % Seg Neutrophils # Sodium Potassium Chloride Carbon Dioxide Anion Gap BUN Creatinine Estimated GFR BUN/Creatinine Ratio Glucose Calcium Urine Color Yellow Urine Turbidity Hazy Urine pH 5.0 Ur Specific [place] 1.018 Urine Protein <15 mg/dl Urine Glucose (UA) Neg Urine Ketones Neg Urine Blood Neg Urine Nitrite Neg Urine Bilirubin Neg Urine Urobilinogen < 2.0 Ur Leukocyte Esterase Neg Urine WBC (Auto) 6.0 Urine RBC (Auto) 3.0 U Epithel Cells (Auto) 17.0 H Urine Mucus Few Salicylates < 0.3 L Urine Opiates Screen Presumptive negative Urine Methadone Screen Presumptive negative Acetaminophen Ur Barbiturates Screen Presumptive negative Ur Phencyclidine Scrn Presumptive negative Ur Amphetamines Screen Presumptive negative U Benzodiazepines Scrn Presumptive negative Urine Cocaine Screen Presumptive negative U Marijuana (THC) Screen Presumptive negative Drugs of Abuse Note Disclamer Plasma/Serum Alcohol 08/18/21 08/18/21 08/18/21 12:44 12:44 12:44 WBC RBC Hgb Hct MCV MCH MCHC RDW Plt Count Lymph % (Auto) [place] % (Auto) Eos % (Auto) Baso % (Auto) Lymph # (Auto) [place] # (Auto) Eos # (Auto) Baso # (Auto) Seg Neutrophils % Seg Neutrophils # Sodium 143 Potassium 3.9 Chloride 102.0 Carbon Dioxide 29 Anion Gap 16 BUN 16 Creatinine 0.7 Estimated GFR > 60 BUN/Creatinine Ratio 23 Glucose 133 H Calcium 9.6 Urine Color Urine Turbidity Urine pH Ur Specific [place] Urine Protein Urine Glucose (UA) Urine Ketones Urine Blood Urine Nitrite Urine Bilirubin Urine Urobilinogen Ur Leukocyte Esterase Urine WBC (Auto) Urine RBC (Auto) U Epithel Cells (Auto) Urine Mucus Salicylates Urine Opiates Screen Urine Methadone Screen Acetaminophen 5.0 L Ur Barbiturates Screen Ur Phencyclidine Scrn Ur Amphetamines Screen U Benzodiazepines Scrn Urine Cocaine Screen U Marijuana (THC) Screen Drugs of Abuse Note Plasma/Serum Alcohol < 0.01 08/18/21 12:44 WBC 6.3 RBC 4.49 Hgb 13.4 Hct 40.1 MCV 89 MCH 30 MCHC 33 RDW 14.8 Plt Count 279 Lymph % (Auto) 21.9 [place] % (Auto) 6.0 Eos % (Auto) 0.6 Baso % (Auto) 0.5 Lymph # (Auto) 1.4 [place] # (Auto) 0.4 Eos # (Auto) 0.0 Baso # (Auto) 0.0 Seg Neutrophils % 71.0 H Seg Neutrophils # 4.4 Sodium Potassium Chloride Carbon Dioxide Anion Gap BUN Creatinine Estimated GFR BUN/Creatinine Ratio Glucose Calcium Urine Color Urine Turbidity Urine pH Ur Specific [place] Urine Protein Urine Glucose (UA) Urine Ketones Urine Blood Urine Nitrite Urine Bilirubin Urine Urobilinogen Ur Leukocyte Esterase Urine WBC (Auto) Urine RBC (Auto) U Epithel Cells (Auto) Urine Mucus Salicylates Urine Opiates Screen Urine Methadone Screen Acetaminophen Ur Barbiturates Screen Ur Phencyclidine Scrn Ur Amphetamines Screen U Benzodiazepines Scrn Urine Cocaine Screen U Marijuana (THC) Screen Drugs of Abuse Note Plasma/Serum Alcohol - Differential Diagnosis Suicidal ideation Critical care attestation.: If time is entered above; I have spent that time in minutes in the direct care of this critically ill patient, excluding procedure time. ED Disposition Clinical Impression: Suicidal ideation Disposition: 30 STILL A PATIENT Is pt being admited?: No Does the pt Need Aspirin: No Condition: Fair Time of Disposition: 17:32 (Awaiting acceptance)
[2021-08-18 12:30] LABS: Bilirubin,Urine NEG (Negative); Blood,Urine NEG (Negative); Color,Urine Yellow (Yellow); Mucus,Urine FEW /HPF; Protein,Urine <15 mg/dL mg/dL (Negative); Urobilinogen,Urine < 2.0 mg/dL (<2.0)
[2021-08-18 12:43] LABS: Amphetamine Screen,Urine PRESUMPTIVE NEGATIVE; Benzodiazepines Screen,Urine PRESUMPTIVE NEGATIVE; Cannabinoid Screen,Urine PRESUMPTIVE NEGATIVE; Cocaine Screen,Urine PRESUMPTIVE NEGATIVE; Methadone Screen,Urine PRESUMPTIVE NEGATIVE; Opiate Screen,Urine PRESUMPTIVE NEGATIVE
[2021-08-18 12:54] LABS: Basophils % (Auto) 0.5 % (0.0-1.8); Eosinophils % (Auto) 0.6 % (0.0-4.3); Hematocrit 40.1 % (30.3-42.9); Hemoglobin 13.4 gm/dl (10.1-14.3); Lymphocytes # (Auto) 1.4 K/mm3 (1.2-5.4); Lymphocytes % (Auto) 21.9 % (13.4-35.0); Mean Corpuscular HGB Conc 33 % (30-34); Mean Corpuscular Volume 89 fl (79-97); Monocytes # (Auto) 0.4 K/mm3 (0.0-0.8); Platelet Count 279 K/mm3 (140-440); Red Blood Count 4.49 M/mm3 (3.65-5.03); Red Cell Distribution Width 14.8 % (13.2-15.2)
[2021-08-18 13:20] LABS: Blood Urea Nitrogen 16 mg/dL (7-17); Calcium 9.6 mg/dL (8.4-10.2); Hemolysis Index 2
[2021-08-18 13:21] LABS: BUN/Creatinine Ratio 23
[2021-08-18] MEDS ORDERED: ONDANSETRON 4 MG/2 ML INJ IM ONE (16:15)
[2021-08-18] MEDS ORDERED: ONDANSETRON 4 MG ODT TAB PO ONE (16:21)
[2021-08-18] MEDS ORDERED: ONDANSETRON 4 MG ODT TAB ONE (16:23)
[2021-08-19 08:21] VITALS: BP 116/80
--- NOTE | 2021-08-19 11:19 | Progress Note ---
Subjective - Reason for Consult Consult date: 08/19/21 Reason for consult: SI - Chief Complaint Chief complaint: The patient was seen today. She is known to me. She was recently admitted more than once for psych treatment. She is calm, cooperative with organized thoughts. She is asking for her "medication for her side effects." She says "look, I'm shaking bad." She says she came to the hospital because she is homeless. She says "I don't want to be homeless. Can you send me upstairs." The patient says she feels suicidal for this. The patient denies hallucinations. REVIEW OF SYSTEMS Constitutional: Negative for weight loss ENT: Negative for stridor Respiratory: Negative for cough or hemoptysis All other systems reviewed and are negative MENTAL STATUS EXAMINATION General Appearance and Behavior: Age appropriate, good hygiene, wearing appropriate clothes. calm, cooperative Cooperation: cooperative Psychomotor Behavior: Psychomotor normal Mood: okay Affect and affective range: congruent with stated mood Thought Process: circumstantial Thought Content: hallucinations Speech: Normal volume, Regular rate and rhythm, Suicidal Ideation: yes, cause I'm homeless Homicidal Ideation: Denies Hallucinations: Denies Delusions: none elicited Impulse Control: impaired Insight and Judgment: Limited Memory: limited Attention: Attentive Orientation: alert and oriented Assessment and Plan (1) Schizophrenia Treatment Plan D/c 1013 Continue home meds Medical: per primary Sitter: per primary Disposition: Do not recommend acute psychiatric inpatient treatment. Will sign off. Thanks Case staffed with Dr. Sullivan Mental Status Exam - Vital signs Last Vital Signs Temp 97.4 F L 08/19/21 08:19 Pulse 81 08/19/21 08:19 Resp 16 08/19/21 08:19 BP 116/80 08/19/21 08:19 Pulse Ox 94 08/19/21 08:19
--- NOTE | 2021-08-19 11:44 | Event Note ---
Date: 08/19/21 vss no distress . assessed , recocmned d/c 1013 and OP management
== END 2021-08-19 12:28 | disposition home or self-care (01) ==
LOC: ED 11:44 → EEVIPCON 11:44 → ED 08-19 12:28
DX: R45.851 Suicidal ideations (principal); I10 Essential (primary) hypertension; E11.9 Type 2 diabetes mellitus without complications; N20.0 Calculus of kidney; F31.9 Bipolar disorder, unspecified; F20.9 Schizophrenia, unspecified; F17.200 Nicotine dependence, unspecified, uncomplicated; Z20.822 Contact with and (suspected) exposure to COVID-19
CPT/HCPCS: 36415; 80048; 80307; 81001; 85025; 99284; U0003; 80320; J3490; G0480; Q0162

== ENCOUNTER 2021-08-29 19:37 | Emergency (ER) | payer MEDICAID ==
[2021-08-29] MEDS ORDERED: CETIRIZINE 10 MG TAB PO STA (22:01)
--- NOTE | 2021-08-29 22:01 | Emergency Department Report ---
<MARIAMA HASSAN - Last Filed: 08/29/21 23:46> ED Psych HPI - General Chief Complaint: Psych Stated Complaint: MH/COLD SX Time Seen by Provider: 08/29/21 21:58 Source: patient Mode of arrival: Ambulatory - History of Present Illness Initial Comments: Chief complaint: "I am having suicidal thoughts. I have a really bad cold. HPI: This is a 50-year-old female history of schizophrenia, bipolar disorder, hypertension, diabetes mellitus presents with "suicidal thoughts". She also has nasal congestion and cough. MD Complaint: suicidal ideation -: Gradual, days(s) (Several days) Associated Psychiatric Symptoms: depression, suicidal ideation History of same: Yes Quality: constant Improves With: none Worsens With: none Associated Symptoms: denies other symptoms Treatments Prior to Arrival: none If Self Harm: admits thoughts of - Related Data Home Medications Medication Instructions Recorded Confirmed Last Taken QUEtiapine [SEROquel] 400 mg PO QHS 08/18/21 08/30/21 Unknown Allergies Allergy/AdvReac Type Severity Reaction Status Date / Time acetaminophen [From Percocet] Allergy Unknown Unknown Verified 08/18/21 11:47 benztropine mesylate Allergy Unknown Unknown Verified 08/18/21 11:47 [From Cogentin] haloperidol [From Haldol] Allergy Unknown Unknown Verified 08/18/21 11:47 haloperidol lactate Allergy Unknown Unknown Verified 08/18/21 11:47 [From Haldol] oxycodone HCl [From Percocet] Allergy Unknown Unknown Verified 08/18/21 11:47 perphenazine AdvReac Swelling Verified 08/18/21 11:47 ED Review of Systems Comment: All other systems reviewed and negative Constitutional: denies: fever, malaise Eyes: denies: as per HPI ENT: congestion Respiratory: cough. denies: shortness of breath Cardiovascular: denies: chest pain Gastrointestinal: denies: abdominal pain, nausea, vomiting Skin: denies: rash, lesions ED Past Medical Hx - Past Medical History Previous Medical History?: Yes Hx Hypertension: Yes Hx Diabetes: Yes Hx Kidney Stones: Yes Hx Psychiatric Treatment: Yes (BIPOLAR, SCHIZOPHRENIA) - Surgical History Past Surgical History?: Yes Additional Surgical History: TUBAL LIGATION - Social History Smoking Status: Current Every Day Smoker Substance Use Type: None - Medications Home Medications: Home Medications Medication Instructions Recorded Confirmed Last Taken Type QUEtiapine [SEROquel] 400 mg PO QHS 08/18/21 08/30/21 Unknown History ED Physical Exam - General Limitations: No Limitations ED Medical Decision Making - Lab Data Result diagrams: 08/29/21 22:19 08/29/21 22:19 - Medical Decision Making 1. Suicidal ideation no plan to harm her self. Awaiting treatment recommendations from psychiatry team.I have reviewed labs CBC chemistry serum toxicology. All unremarkable. Patient is medically clear for psychiatric care 2. URI: Patient given loratadine and Tessalon Perles. ED Disposition Clinical Impression: Depression Disposition: HOME / SELF CARE / HOMELESS Condition: Stable Additional Instructions: Professional and Agency Contacts To help [facility](26/12) [place] Crisis Line: Suicide Prevention Line: Crisis Text Line: Text START to 097478 Emergency: 911 Outpatient COMMUNITY Behavioral Health Resources: [place]: [facility] [address] [place] [address] [id number] [facility] [address] [place] [address] [facility] - [address] [place] [address] Monday thru Monday - 8am - 5pm [facility] Address: [address] [place] [address] [place]: [facility] Address: [address] [place] [address] Monday thru Monday- 7am-2pm [facility] Address: [address] [place] [address] Monday thru Monday: 8:30AM-5PM OUTPATIENT MENTAL HEALTH RESOURCES [facility], [address] [place], [place] [id number] [facility] Geeta Barbosa MD: [address] [place] [address] [facility]: [address] [place] [address] [employer] [place] [address] [phone] [facility]: [address] [facility] [address] [place] [address] [facility]: [address] [facility] [address] [facility] [address] [facility]: [address] [place], [place] Tommy Marquis MD: [address] [facility] [address] [facility]: [address] [facility] [place], [place] [id number] [phone] [place] CRISIS AND ACCESS LINE: * OUTPATIENT MENTAL HEALTH RESOURCES [facility], [address] [place] [address] [phone] [facility] Geeta Barbosa MD: [address] [facility] [address] [place] [address] [facility]: [address] [place] [address] [employer] [address] [phone] [facility]: [address] [facility] [address] [place] [address] [facility]: [address] [place] [address] [facility]: [address] [place] [address] Tmomy Marquis MD: [address] [facility] [address] [facility]: [address] [place], [place] [id number] [phone] [place] CRISIS AND ACCESS LINE: * Referrals: NATHAN HAMPTON MD [Primary Care Provider] - 3-5 Days <BETTY EVANS - Last Filed: 08/30/21 11:11> ED Review of Systems ROS: Stated complaint: MH/COLD SX Other details as noted in HPI ED Course Vital Signs 08/29/21 08/30/21 08/30/21 21:34 02:39 07:14 Temperature 98.4 F 98.6 F Pulse Rate 85 63 Respiratory 16 16 Rate Blood Pressure 149/83 117/71 [Right] O2 Sat by Pulse 94 98 98 Oximetry ED Medical Decision Making - Lab Data Result diagrams: 08/29/21 22:19 08/29/21 22:19 Critical care attestation.: If time is entered above; I have spent that time in minutes in the direct care of this critically ill patient, excluding procedure time. ED Disposition Is pt being admited?: No Does the pt Need Aspirin: No
[2021-08-29] MEDS ORDERED: BENZONATATE 100 MG CAP PO STA (22:02)
[2021-08-29] MEDS ORDERED: QUEtiapine 100 MG TAB PO STA (22:03)
[2021-08-29 23:09] LABS: Basophils % (Auto) 0.9 % (0.0-1.8); Eosinophils # (Auto) 0.2 K/mm3 (0.0-0.4); Eosinophils % (Auto) 3.9 % (0.0-4.3); Hematocrit 35.7 % (30.3-42.9); Hemoglobin 11.6 gm/dl (10.1-14.3); Lymphocytes # (Auto) 2.2 K/mm3 (1.2-5.4); Lymphocytes % (Auto) 39.8 % (13.4-35.0); Mean Corpuscular HGB Conc 33 % (30-34); Mean Corpuscular Volume 91 fl (79-97); Monocytes # (Auto) 0.4 K/mm3 (0.0-0.8); Monocytes % (Auto) 7.7 % (0.0-7.3); Platelet Count 249 K/mm3 (140-440); Red Blood Count 3.92 M/mm3 (3.65-5.03)
[2021-08-29 23:10] LABS: BUN/Creatinine Ratio 18; Blood Urea Nitrogen 16 mg/dL (7-17); Calcium 8.8 mg/dL (8.4-10.2); Hemolysis Index 8
[2021-08-30 07:42] LABS: Bacteria,Urine 1+ /HPF (Negative); Bilirubin,Urine NEG (Negative); Blood,Urine NEG (Negative); Calcium Oxalate Crystals,Urine FEW; Color,Urine Yellow (Yellow); Mucus,Urine FEW /HPF; Protein,Urine <15 mg/dL mg/dL (Negative)
[2021-08-30 07:48] LABS: Amphetamine Screen,Urine Negative; Benzodiazepines Screen,Urine Negative; Cannabinoid Screen,Urine Negative; Cocaine Screen,Urine Negative; Methadone Screen,Urine Negative; Opiate Screen,Urine Negative
--- NOTE | 2021-08-30 09:02 | Progress Note ---
Subjective - Reason for Consult Consult date: 08/30/21 Reason for consult: SI, cold - Chief Complaint Chief complaint: The patient was seen today. She presented to the ER for SI and a cold. During the evaluation, the patient was asleep. She easily arouses. She says she feels "okay" when asked. When asking the patient what brought her to the hospital, she replies "same stuff." I ask her was it the voices or suicidal thoughts, she replies "both." I ask her was different today, she says "I don't know. I'm homeless." I ask the patient has she been taking her medications, she says "sometimes." The patient then says "I have a very bad cold, coughing, can you please give me something for it." The patient was given something for this since her stay in the ER. REVIEW OF SYSTEMS Constitutional: Negative for weight loss ENT: Negative for stridor Respiratory: Negative for cough or hemoptysis All other systems reviewed and are negative MENTAL STATUS EXAMINATION General Appearance and Behavior: Age appropriate, good hygiene, wearing appropriate clothes. calm, cooperative Cooperation: cooperative Psychomotor Behavior: Psychomotor normal Mood: okay Affect and affective range: congruent with stated mood Thought Process: circumstantial Thought Content: hallucinations Speech: Normal volume, Regular rate and rhythm, Suicidal Ideation: yes, homeless Homicidal Ideation: Denies Hallucinations: Denies Delusions: none elicited Impulse Control: impaired Insight and Judgment: Limited Memory: limited Attention: Attentive Orientation: alert and oriented Assessment and Plan (1)Hx Schizophrenia Treatment Plan Continue home meds Medical: per primary Sitter: per primary Disposition: Do not recommend acute psychiatric inpatient treatment. Will sign off. Thanks Case staffed with Dr. Sullivan Mental Status Exam - Vital signs Last Vital Signs Temp 98.6 F 08/30/21 02:39 Pulse 63 08/30/21 02:39 Resp 16 08/30/21 02:39 BP 117/71 08/30/21 02:39 Pulse Ox 98 08/30/21 07:14
[2021-08-30 11:45] VITALS: BP 160/91
== END 2021-08-30 11:55 | disposition home or self-care (01) ==
LOC: ED 19:37
DX: F32.A Depression, unspecified (principal); I10 Essential (primary) hypertension; E11.9 Type 2 diabetes mellitus without complications; N20.0 Calculus of kidney; F17.200 Nicotine dependence, unspecified, uncomplicated; Z79.899 Other long term (current) drug therapy; Z98.890 Other specified postprocedural states; Z20.822 Contact with and (suspected) exposure to COVID-19
CPT/HCPCS: 36415; 80048; 80307; 81001; 85025; 99284; U0003; 80320; G0480

== ENCOUNTER 2021-11-06 00:25 | Emergency (ER) | payer MEDICAID ==
--- NOTE | 2021-11-06 01:28 | Emergency Department Report ---
HPI - General Chief Complaint: Psych Time Seen by Provider: 11/06/21 01:19 - [facility] HPI: Room 15 The patient is a 51-year-old female present with chief complaint of suicidal ideation. Patient states she came to the emergency department because "I am having suicidal ideation." Patient states she is felt suicidal for the past several months. Patient denies any attempt at harming himself or having an actual plan. Patient is hyperverbal and appears to be whispering to someone that is not there during the interview ED Past Medical Hx - Past Medical History Previous Medical History?: Yes Hx Hypertension: Yes Hx Diabetes: Yes Hx Kidney Stones: Yes Hx Psychiatric Treatment: Yes (BIPOLAR, SCHIZOPHRENIA) - Surgical History Past Surgical History?: Yes Additional Surgical History: TUBAL LIGATION - Family History Family history: no significant - Social History Smoking Status: Current Every Day Smoker Substance Use Type: None - Medications Home Medications: Home Medications Medication Instructions Recorded Confirmed Last Taken Type QUEtiapine [SEROquel] 400 mg PO QHS 08/18/21 08/30/21 Unknown History ED Review of Systems ROS: Stated complaint: PSYCH ISSUES Other details as noted in HPI Constitutional: no symptoms reported Eyes: denies: eye pain ENT: denies: throat pain Respiratory: no symptoms reported Cardiovascular: denies: chest pain Endocrine: no symptoms reported Gastrointestinal: denies: abdominal pain Genitourinary: denies: dysuria Musculoskeletal: denies: back pain Neurological: denies: headache Psychiatric: suicidal thoughts Physical Exam - Physical Exam Vital Signs: Vital Signs 11/06/21 01:07 Temperature 98 F Pulse Rate 78 Respiratory 18 Rate Blood Pressure 118/76 O2 Sat by Pulse 100 Oximetry Physical Exam: GENERAL: The patient is well-developed well-nourished female lying on stretcher talking to herself not appearing to be in acute distress. [] HEENT: Normocephalic. Atraumatic. Extraocular motions are intact. Patient has moist mucous membranes. NECK: Supple. Trachea midline CHEST/LUNGS: Clear to auscultation. There is no respiratory distress noted. HEART/CARDIOVASCULAR: Regular. There is no tachycardia. There is no gallop rub or murmur. ABDOMEN: Abdomen is soft, nontender. Patient has normal bowel sounds. There is no abdominal distention. SKIN: There is no rash. There is no edema. There is no diaphoresis. NEURO: The patient is awake, alert, and oriented. The patient is cooperative. The patient has no focal neurologic deficits. The patient has normal speech. GCS 15 MUSCULOSKELETAL: There is no evidence of acute injury. ED Course Vital Signs 11/06/21 01:07 Temperature 98 F Pulse Rate 78 Respiratory 18 Rate Blood Pressure 118/76 O2 Sat by Pulse 100 Oximetry ED Medical Decision Making - Lab Data Result diagrams: 11/06/21 01:19 11/06/21 01:19 - Differential Diagnosis Suicidal ideation, schizophrenia Critical care attestation.: If time is entered above; I have spent that time in minutes in the direct care of this critically ill patient, excluding procedure time. ED Disposition Clinical Impression: Suicidal ideation Disposition: [address] [place] [address] Is pt being admited?: No Does the pt Need Aspirin: No Condition: Stable Referrals: NATHAN HAMPTON MD [Primary Care Provider] - 3-5 Days
[2021-11-06 01:35] LABS: Basophils # (Auto) 0.1 K/mm3 (0.0-0.1); Basophils % (Auto) 0.9 % (0.0-1.8); Eosinophils # (Auto) 0.1 K/mm3 (0.0-0.4); Eosinophils % (Auto) 1.5 % (0.0-4.3); Hematocrit 38.1 % (30.3-42.9); Hemoglobin 13.2 gm/dl (10.1-14.3); Lymphocytes # (Auto) 2.3 K/mm3 (1.2-5.4); Lymphocytes % (Auto) 32.6 % (13.4-35.0); Mean Corpuscular HGB Conc 35 % (30-34); Mean Corpuscular Volume 88 fl (79-97); Monocytes # (Auto) 0.6 K/mm3 (0.0-0.8); Monocytes % (Auto) 9.1 % (0.0-7.3); Platelet Count 304 K/mm3 (140-440); Red Blood Count 4.33 M/mm3 (3.65-5.03); Red Cell Distribution Width 14.9 % (13.2-15.2)
[2021-11-06 01:51] LABS: BUN/Creatinine Ratio 28; Blood Urea Nitrogen 25 mg/dL (7-17); Calcium 9.7 mg/dL (8.4-10.2); Hemolysis Index 6
[2021-11-06 10:19] LABS: Amphetamine Screen,Urine Negative; Benzodiazepines Screen,Urine Negative; Cannabinoid Screen,Urine Negative; Methadone Screen,Urine Negative; Opiate Screen,Urine Negative
[2021-11-06 10:26] LABS: Bacteria,Urine 1+ /HPF (Negative); Bilirubin,Urine NEG (Negative); Blood,Urine NEG (Negative); Color,Urine Yellow (Yellow); Mucus,Urine 2+ /HPF
--- NOTE | 2021-11-06 11:36 | Event Note ---
Date: 11/06/21 Patient is 51 years old female admitted to the ER for suicidal ideation. Vital signs stable. Labs reviewed and is unremarkable pending COVID-19 test. Pending inpatient psychiatric admission.
--- NOTE | 2021-11-06 14:32 | Consultation ---
History of Present Illness - Reason for Consult Consult date: 11/06/21 Reason for consult: MHE - Chief Complaint Chief complaint: Suicidal - History of Present Psychiatric Illness Patient is a 51yo female with history of Schizoaffective disorder. She presents with suicidal thoughts with plans. Patient is disorganized and talkative and psychotic today. She is actively hallucinating - talking and responding to unseen people in the room. Patient reports that she stopped taking her medication several months ago PAST PSYCHIATRIC HISTORY: Diagnoses: Schizoaffective disorder, with multiple admissions MENTAL STATUS General Appearance and Behavior: age appropriate, good eye contact, cooperative with questioning and polite Cooperation: Cooperative Psychomotor Behavior: within normal limits Mood: depressed Affect and affective range: Congruent with stated mood Thought Process: Fluent/Logical and Goal-directed Thought Content: AH Speech: Normal volume and Regular rate and rhythm Intellectual Functioning Average Suicidal Ideation: SI Homicidal Ideation: Denies HI Impulse Control: intact Insight and Judgment: limited insight and judgment Memory: Normal Attention: Normal Orientation: alert and oriented RECOMMENDATIONS MEDICATIONS: Seroquel 300mg qhs(was on 400mg per patient) Risks, benefits and alternatives of medications discussed with the patient, questions answered and consent obtained from patient. LEGAL ASSOCIATE: Yes DISPOSITION: Acute inpatient psychiatric hospitalization when medically stable LEGAL STATUS: 1013 FOLLOW-UP: Will follow Please contact with any questions and/or concerns. Medications and Allergies Allergies Allergy/AdvReac Type Severity Reaction Status Date / Time acetaminophen [From Percocet] Allergy Unknown Unknown Verified 08/18/21 11:47 benztropine mesylate Allergy Unknown Unknown Verified 08/18/21 11:47 [From Cogentin] haloperidol [From Haldol] Allergy Unknown Unknown Verified 08/18/21 11:47 haloperidol lactate Allergy Unknown Unknown Verified 08/18/21 11:47 [From Haldol] oxycodone HCl [From Percocet] Allergy Unknown Unknown Verified 08/18/21 11:47 perphenazine AdvReac Swelling Verified 08/18/21 11:47 Home Medications Medication Instructions Recorded Confirmed Last Taken Type QUEtiapine [SEROquel] 400 mg PO QHS 08/18/21 08/30/21 Unknown History Mental Status Exam - Vital signs Last Vital Signs Temp 98.7 F 11/06/21 09:13 Pulse 82 11/06/21 09:13 Resp 16 11/06/21 09:13 BP 104/61 11/06/21 09:13 Pulse Ox 96 11/06/21 09:13 Results Result Diagrams: 11/06/21 01:19 11/06/21 01:19 Abnormal lab results 11/06/21 11/06/21 11/06/21 Range/Units 01:19 01:19 01:19 MCHC (30-34) % [place] % (Auto) (0.0-7.3) % BUN 25 H (7-17) mg/dL Salicylates < 0.3 L (2.8-20.0) mg/dL Acetaminophen 5.0 L (10.0-30.0) ug/mL 11/06/21 Range/Units 01:19 MCHC 35 H (30-34) % [place] % (Auto) 9.1 H (0.0-7.3) % BUN (7-17) mg/dL Salicylates (2.8-20.0) mg/dL Acetaminophen (10.0-30.0) ug/mL All other labs normal. Assessment and Plan - Psychiatric problem (1) Schizoaffective disorder, bipolar type Current Visit: Yes Status: Acute
[2021-11-06] MEDS: QUEtiapine 100 MG TAB PO SCH (22:18)
--- NOTE | 2021-11-07 11:26 | Event Note ---
Date: 11/07/21 Patient is 51 years old female with history of schizoaffective disorder. Patient admitted to the ER with acute psychosis. Patient is still experiencing hallucination and disorganized thoughts. Vital signs stable Labs reviewed and is unremarkable. Waiting for inpatient psychiatric admission.
[2021-11-07] MEDS ORDERED: ZIPRASIDONE MESYLATE 20 MG VIAL IM ONE (13:28)
[2021-11-07] MEDS ORDERED: LORazepam 2 MG/ML VIAL IM ONE (14:50)
[2021-11-07] MEDS: QUEtiapine 100 MG TAB PO SCH (22:00)
--- NOTE | 2021-11-08 11:24 | Event Note ---
Date: 11/08/21 Patient is 51 years old female admitted to the ER with acute psychosis. Patient is still with command hallucination. Vital signs stable. Waiting for inpatient psychiatric placement.
--- NOTE | 2021-11-08 13:37 | Progress Note ---
Subjective - Reason for Consult Consult date: 11/08/21 Reason for consult: MHE - Chief Complaint Chief complaint: Consult date: 11/06/21 History of Present Psychiatric Illness Patient is a 51yo female with history of Schizoaffective disorder. She presents with suicidal thoughts with plans. Patient is disorganized and talkative and psychotic today. She is actively hallucinating - talking and responding to unseen people in the room. Patient reports that she stopped taking her medication several months ago Progress: 11/08/21: Patient was seen by me today. She is awake, alert and fully oriented; cooperative with interview. She reports auditory hallucinations and suicidal thoughts. She is compliant with medications and denies side effects. Mental Status Exam - Vital signs Last Vital Signs Temp 98.5 F 11/08/21 08:43 Pulse 80 11/08/21 08:43 Resp 18 11/08/21 08:43 BP 103/63 11/08/21 08:43 Pulse Ox 96 11/08/21 08:43 - Exam Orientation: time, place, person Affect: depressed, anxious Mood: congruent with affect Thought content: delusions Thought Process: Disorganized Perceptions: auditory, command, hallucinations Speech: rapid Concentration: unable to pay attention Motor activity: restless, agitated Level of consciousness: alert Sleep Symptoms: Difficulty Falling Asleep Interaction: cooperative Assessment and Plan - Patient Problems (1) Schizoaffective disorder, bipolar type Current Visit: Yes Status: Acute Plan to address problem: MEDICATIONS: Seroquel increased to 300mg bid Risks, benefits and alternatives of medications discussed with the patient, questions answered and consent obtained from patient. CHROMOSOMAL DISORDERS COUNSELOR: No DISPOSITION: Acute inpatient psychiatric hospitalization when medically stable LEGAL STATUS: 1013 FOLLOW-UP: Will follow Please contact with any questions and/or concerns.
[2021-11-08] MEDS: QUEtiapine 100 MG TAB PO SCH (14:25)
[2021-11-09] MEDS: QUEtiapine 100 MG TAB PO SCH ×2 (02:04→10:00)
--- NOTE | 2021-11-09 17:21 | Emergency Department Report ---
Blank Doc - Documentation Documentation: Chart reviewed 51-year-old female awaiting inpatient psychiatric treatment currently on 1013 Tolerating p.o. meds
--- NOTE | 2021-11-09 18:14 | Progress Note ---
Subjective - Reason for Consult Consult date: 11/09/21 Reason for consult: psychosis - Chief Complaint Chief complaint: The patient was seen today. She is sleeping. She is known to me from previous visits. She typically comes in with the same complaints. She states she feels "a little better." She says "I'm still hearing voices though." When I ask the patient how long has she been hearing them, she says "I always hear them." She denies SI/HI. She does yell out impulsively, as this is how she always presents to the ER. She says her meds don't help her. I ask the patient if she talked to her outpatient psychiatrist, she replies "yea, he said come here." REVIEW OF SYSTEMS Constitutional: Negative for weight loss ENT: Negative for stridor Respiratory: Negative for cough or hemoptysis All other systems reviewed and are negative MENTAL STATUS EXAMINATION General Appearance and Behavior: Age appropriate, good hygiene, wearing appropriate clothes. calm, cooperative Cooperation: cooperative Psychomotor Behavior: Psychomotor normal Mood: a little better Affect and affective range: congruent with stated mood Thought Process: circumstantial Thought Content: hallucinations Speech: Normal volume, Regular rate and rhythm, Suicidal Ideation: Denies Homicidal Ideation: Denies Hallucinations: Denies Delusions: none elicited Impulse Control: impaired Insight and Judgment: Limited Memory: limited Attention: Attentive Orientation: alert and oriented Assessment and Plan (1)Schizophrenia Treatment Plan D/c 1013 Seroquel 300mg po BID Medical: Per primary Disposition: Do not recommend acute psychiatric inpatient treatment. The patient understands that if SI/HI reoccur she is to seek immediate assistance. Will sign off. Thanks Case staffed with Dr. Sullivan Mental Status Exam - Vital signs Last Vital Signs Temp 98.8 F 11/08/21 20:12 Pulse 79 11/08/21 20:12 Resp 16 11/08/21 20:12 BP 114/63 11/08/21 20:12 Pulse Ox 97 11/08/21 20:12
--- NOTE | 2021-11-09 19:15 | Event Note ---
Patient was evaluated by psych with recommendation to discontinue 1013 and follow-up with her outpatient psychiatrist and takes Seroquel. Please refer to note. Patient will be discharged
[2021-11-09 19:47] VITALS: BP 144/82
== END 2021-11-09 19:51 | disposition home or self-care (01) ==
LOC: ED 00:25 → EEVIPCON 00:25 → ED 11-09 19:51
DX: R45.851 Suicidal ideations (principal); Z20.822 Contact with and (suspected) exposure to COVID-19; I10 Essential (primary) hypertension; E11.9 Type 2 diabetes mellitus without complications; Z87.442 Personal history of urinary calculi; F20.9 Schizophrenia, unspecified; F31.9 Bipolar disorder, unspecified; Z98.890 Other specified postprocedural states; F17.290 Nicotine dependence, other tobacco product, uncomplicated
CPT/HCPCS: 36415; 80048; 80307; 81001; 85025; 96372; 99284; J2060; U0003; 80320; G0480

== ENCOUNTER 2021-11-17 17:45 | Emergency (ER) | payer MEDICAID ==
--- NOTE | 2021-11-17 18:25 | Emergency Department Report ---
HPI - General Chief Complaint: Psych Time Seen by Provider: 11/17/21 18:06 - [facility] HPI: Room 15 The patient is a 51-year-old female present with a chief complaint of suicidal ideation. Patient was reportedly found wandering the streets by PD and brought in for evaluation. In the ED the patient states she has had suicidal ideation for "a while." Patient denies any attempts at harming herself but states that her plan was to cut her wrist. ED Past Medical Hx - Past Medical History Hx Hypertension: Yes Hx Diabetes: Yes Hx Kidney Stones: Yes Hx Psychiatric Treatment: Yes (BIPOLAR, SCHIZOPHRENIA) - Surgical History Additional Surgical History: TUBAL LIGATION - Family History Family history: no significant - Social History Smoking Status: Current Every Day Smoker Substance Use Type: None - Medications Home Medications: Home Medications Medication Instructions Recorded Confirmed Last Taken Type QUEtiapine [SEROquel] 400 mg PO QHS 08/18/21 08/30/21 Unknown History Quetiapine Fumarate [SEROquel] 300 mg PO BID #60 11/09/21 Unknown Rx ED Review of Systems ROS: Stated complaint: DELIRIUM Other details as noted in HPI Constitutional: no symptoms reported Eyes: denies: eye pain Respiratory: no symptoms reported Cardiovascular: denies: chest pain Endocrine: no symptoms reported Gastrointestinal: denies: abdominal pain Genitourinary: denies: dysuria Musculoskeletal: denies: back pain Neurological: denies: headache Psychiatric: suicidal thoughts Physical Exam - Physical Exam Vital Signs: Vital Signs 11/17/21 17:49 Pulse Rate 108 H Blood Pressure 140/97 [Left] O2 Sat by Pulse 98 Oximetry Physical Exam: GENERAL: The patient is well-developed well-nourished female sitting in chair eating food not appearing to be in acute distress. [] HEENT: Normocephalic. Atraumatic. Extraocular motions are intact. Patient has moist mucous membranes. NECK: Supple. Trachea midline CHEST/LUNGS: Clear to auscultation. There is no respiratory distress noted. HEART/CARDIOVASCULAR: Regular. There is no tachycardia. There is no gallop rub or murmur. ABDOMEN: Abdomen is soft, nontender. Patient has normal bowel sounds. There is no abdominal distention. SKIN: There is no rash. There is no edema. There is no diaphoresis. NEURO: The patient is awake, alert, and oriented. The patient is cooperative. The patient has no focal neurologic deficits. The patient has normal speech. GCS 15 MUSCULOSKELETAL: There is no evidence of acute injury. ED Course Vital Signs 11/17/21 17:49 Pulse Rate 108 H Blood Pressure 140/97 [Left] O2 Sat by Pulse 98 Oximetry ED Medical Decision Making - Lab Data Result diagrams: 11/17/21 18:17 11/17/21 18:17 Laboratory Tests 11/17/21 11/17/21 11/17/21 18:17 18:17 18:17 WBC RBC Hgb Hct MCV MCH MCHC RDW Plt Count Lymph % (Auto) [place] % (Auto) Eos % (Auto) Baso % (Auto) Lymph # (Auto) [place] # (Auto) Eos # (Auto) Baso # (Auto) Seg Neutrophils % Seg Neutrophils # Sodium 142 Potassium 3.5 L Chloride 102.2 Carbon Dioxide 28 Anion Gap 15 BUN 14 Creatinine 0.9 Estimated GFR > 60 BUN/Creatinine Ratio 16 Glucose 113 H Calcium 9.6 Salicylates 1.1 L Acetaminophen 5.0 L Plasma/Serum Alcohol 11/17/21 11/17/21 18:17 18:17 WBC 5.8 RBC 4.32 Hgb 12.6 Hct 39.0 MCV 90 MCH 29 MCHC 32 RDW 14.7 Plt Count 262 Lymph % (Auto) 30.8 [place] % (Auto) 6.9 Eos % (Auto) 2.8 Baso % (Auto) 0.7 Lymph # (Auto) 1.8 [place] # (Auto) 0.4 Eos # (Auto) 0.2 Baso # (Auto) 0.0 Seg Neutrophils % 58.8 Seg Neutrophils # 3.4 Sodium Potassium Chloride Carbon Dioxide Anion Gap BUN Creatinine Estimated GFR BUN/Creatinine Ratio Glucose Calcium Salicylates Acetaminophen Plasma/Serum Alcohol < 0.01 - Differential Diagnosis Suicidal ideation Critical care attestation.: If time is entered above; I have spent that time in minutes in the direct care of this critically ill patient, excluding procedure time. ED Disposition Clinical Impression: Suicidal ideation Disposition: 30 STILL A PATIENT Is pt being admited?: No Does the pt Need Aspirin: No Condition: Stable
[2021-11-17 18:47] LABS: Basophils % (Auto) 0.7 % (0.0-1.8); Eosinophils # (Auto) 0.2 K/mm3 (0.0-0.4); Eosinophils % (Auto) 2.8 % (0.0-4.3); Hemoglobin 12.6 gm/dl (10.1-14.3); Lymphocytes # (Auto) 1.8 K/mm3 (1.2-5.4); Lymphocytes % (Auto) 30.8 % (13.4-35.0); Mean Corpuscular HGB Conc 32 % (30-34); Mean Corpuscular Volume 90 fl (79-97); Monocytes # (Auto) 0.4 K/mm3 (0.0-0.8); Monocytes % (Auto) 6.9 % (0.0-7.3); Platelet Count 262 K/mm3 (140-440); Red Blood Count 4.32 M/mm3 (3.65-5.03); Red Cell Distribution Width 14.7 % (13.2-15.2)
[2021-11-17 19:00] LABS: BUN/Creatinine Ratio 16; Blood Urea Nitrogen 14 mg/dL (7-17); Calcium 9.6 mg/dL (8.4-10.2); Hemolysis Index 6
[2021-11-17] MEDS ORDERED: POTASSIUM CHLORIDE ER 20 MEQ TAB PO ONE (21:27)
--- NOTE | 2021-11-18 10:16 | Consultation ---
History of Present Illness - Reason for Consult Consult date: 11/18/21 Reason for consult: Psychosis - History of Present Psychiatric Illness HPI: The patient is a 51-year-old female present with a chief complaint of suicidal ideation. Patient was reportedly found wandering the streets by PD and brought in for evaluation. In the ED the patient states she has had suicidal ideation for "a while." Patient denies any attempts at harming herself but states that her plan was to cut her wrist. The patient is a 51 year old female with history of schizophrenia. The patient is well known to the establishment. She was seen today. She is alert and oriented to self. The patient is acutely psychotic responding to internal stimuli; she reports noncompliant with psychotropic medications x1 week. She endorses suicidal ideation and auditory hallucinations. PAST PSYCHIATRIC HISTORY: Diagnoses: Bipolar, schizophrenia Suicide attempts or Self-harm behavior: Denies Prior psychiatric hospitalizations: Yes Substance Abuse history: Denies Previous psychiatric medications tried: seroquel Outpatient treatment: Denies PAST MEDICAL HISTORY: None reported or document Family Psychiatric History: None reported or documented SOCIAL HISTORY Marital Status: Single Living Arrangements: Lives alone Employment Status: Disabled Access to guns/weapons: Denies Education: History of Abuse: Denies Legal History: Denies REVIEW OF SYSTEMS Constitutional: Negative for weight loss ENT: Negative for stridor Respiratory: Negative for cough or hemoptysis All other systems reviewed and are negative MENTAL STATUS EXAMINATION General Appearance and Behavior: Age appropriate, good hygiene, wearing appropriate clothes. anxious, cooperative Cooperation: cooperative Psychomotor Behavior: Psychomotor normal Mood: okay Affect and affective range: congruent with stated mood Thought Process: circumstantial Thought Content: Hallucinations/ suicidal Speech: Normal volume, Regular rate and rhythm, Suicidal Ideation: yes Homicidal Ideation: Denies Hallucinations: Auditory Delusions: none elicited Impulse Control: impaired Insight and Judgment: Limited Memory: limited Attention: Attentive Orientation: alert and oriented Assessment and Plan (1) Schizophrenia Treatment Plan 1013 Seroquel 25mg po BID Seroquel 400mg po QHS Continue home meds Medical: per primary Sitter: per primary Disposition: Recommend acute psychiatric inpatient treatment. Will follow. Thanks Case staffed with Dr. Sullivan Medications and Allergies Allergies Allergy/AdvReac Type Severity Reaction Status Date / Time acetaminophen [From Percocet] Allergy Unknown Unknown Verified 11/17/21 17:51 benztropine mesylate Allergy Unknown Unknown Verified 11/17/21 17:51 [From Cogentin] haloperidol [From Haldol] Allergy Unknown Unknown Verified 11/17/21 17:51 haloperidol lactate Allergy Unknown Unknown Verified 11/17/21 17:51 [From Haldol] oxycodone HCl [From Percocet] Allergy Unknown Unknown Verified 11/17/21 17:51 ziprasidone [From Geodon] Allergy Seizure Verified 11/17/21 17:51 perphenazine AdvReac Swelling Verified 11/17/21 17:51 Home Medications Medication Instructions Recorded Confirmed Last Taken Type QUEtiapine [SEROquel] 400 mg PO QHS 08/18/21 08/30/21 Unknown History Quetiapine Fumarate [SEROquel] 300 mg PO BID #60 11/09/21 Unknown Rx Mental Status Exam - Vital signs Last Vital Signs Temp 98.2 F 11/18/21 08:19 Pulse 70 11/18/21 08:19 Resp 18 11/18/21 08:19 BP 140/74 11/18/21 08:19 Pulse Ox 99 11/18/21 08:19 Results Result Diagrams: 11/17/21 18:17 11/17/21 18:17 Abnormal lab results 11/17/21 11/17/21 11/17/21 Range/Units 18:17 18:17 18:17 Potassium 3.5 L (3.6-5.0) mmol/L Glucose 113 H (65-100) mg/dL Salicylates 1.1 L (2.8-20.0) mg/dL Acetaminophen 5.0 L (10.0-30.0) ug/mL All other labs normal.
[2021-11-18] MEDS: QUEtiapine 25 MG TAB PO SCH (12:00)
--- NOTE | 2021-11-18 13:18 | Event Note ---
Date: 11/18/21 Seen this morning and has no complaint. Patient was also seen by psychiatric and recommend continue Seroquel and other oral medications at this point.
[2021-11-19] MEDS: QUEtiapine 200 MG TAB PO SCH ×2 (01:57→22:21)
--- NOTE | 2021-11-19 11:58 | Progress Note ---
Subjective - Reason for Consult Consult date: 11/19/21 Reason for consult: psychosis - Chief Complaint Chief complaint: The patient was seen today. She is a known patient to me. She is talking beneath her breath to people not there. She says "the voices are worse. I can't control them now." She also endorses SI with a plan to cut her wrist. She says "the meds don't help." The patient may benefit from a long acting injection. Will continue to recommend inpatient treatment, wean down seroquel and start Risperiodone to test for tolerability of Invega sustenna. REVIEW OF SYSTEMS Constitutional: Negative for weight loss ENT: Negative for stridor Respiratory: Negative for cough or hemoptysis All other systems reviewed and are negative MENTAL STATUS EXAMINATION General Appearance and Behavior: Age appropriate, good hygiene, wearing appropriate clothes. anxious, cooperative Cooperation: cooperative Psychomotor Behavior: Psychomotor normal Mood: depressed Affect and affective range: congruent with stated mood Thought Process: illogical Thought Content: Hallucinations/ suicidal Speech: Normal volume, Regular rate and rhythm, Suicidal Ideation: yes Homicidal Ideation: Denies Hallucinations: Auditory Delusions: none elicited Impulse Control: impaired Insight and Judgment: Limited Memory: limited Attention: Attentive Orientation: alert and oriented Assessment and Plan (1) Schizophrenia Treatment Plan 1013 Start Risperidone 0.5mg po BID d/c Seroquel 25mg po BID Seroquel 400mg po QHS Continue home meds Medical: per primary Sitter: per primary Disposition: Recommend acute psychiatric inpatient treatment. Will follow. Thanks Case staffed with Dr. Sullivan Mental Status Exam - Vital signs Last Vital Signs Temp 98.0 F 11/18/21 20:42 Pulse 71 11/18/21 20:42 Resp 18 11/18/21 20:42 BP 144/79 11/18/21 20:42 Pulse Ox 99 11/19/21 00:00
[2021-11-19] MEDS: QUEtiapine 25 MG TAB PO SCH (12:51)
--- NOTE | 2021-11-19 13:00 | Event Note ---
Date: 11/19/21 Patient seen and observed by me today. Patient also seen by psychiatric team and recommend to continue the 1013 and order antipsychotic medication.
[2021-11-19] MEDS: risperiDONE 0.25 MG TAB PO SCH ×2 (14:53→22:21)
--- NOTE | 2021-11-20 09:57 | Progress Note ---
Subjective - Reason for Consult Consult date: 11/20/21 Reason for consult: psychosis - Chief Complaint Chief complaint: The patient was seen today. She still endorses SI and is talking to herself nonstop. The patient in the room with her says she called her the N-word all night. The patient is talking to her hand but saying things about me and the patient as she is doing so. Will continue to recommend inpatient treatment, wean down seroquel and start Risperiodone to test for tolerability of Invega sustenna. Invega Sustenna 234mg IM x 1 ordered for 11/21. REVIEW OF SYSTEMS Constitutional: Negative for weight loss ENT: Negative for stridor Respiratory: Negative for cough or hemoptysis All other systems reviewed and are negative MENTAL STATUS EXAMINATION General Appearance and Behavior: Age appropriate, good hygiene, wearing appropriate clothes. anxious, cooperative Cooperation: cooperative Psychomotor Behavior: Psychomotor normal Mood: depressed Affect and affective range: congruent with stated mood Thought Process: illogical Thought Content: Hallucinations/ suicidal Speech: Normal volume, Regular rate and rhythm, Suicidal Ideation: yes Homicidal Ideation: Denies Hallucinations: Auditory Delusions: none elicited Impulse Control: impaired Insight and Judgment: Limited Memory: limited Attention: Attentive Orientation: alert and oriented Assessment and Plan (1) Schizophrenia Treatment Plan 1013 Risperidone 1mg po BID Invega Sustenna 234mg IM x 1 11/21 Seroquel 400mg po QHS Continue home meds Medical: per primary Sitter: per primary Disposition: Recommend acute psychiatric inpatient treatment. Will follow. Thanks Case staffed with Dr. Sullivan Mental Status Exam - Vital signs Last Vital Signs Temp 98.0 F 11/18/21 20:42 Pulse 71 11/18/21 20:42 Resp 18 11/18/21 20:42 BP 144/79 11/18/21 20:42 Pulse Ox 98 11/20/21 00:14
[2021-11-20] MEDS: risperiDONE 1 MG TAB PO SCH ×2 (11:59→21:40)
[2021-11-20] MEDS: QUEtiapine 200 MG TAB PO SCH (21:40)
[2021-11-21] MEDS ORDERED: PALIPERIDONE PALMITATE 234 MG/1.5 ML SYRINGE IM ONE (09:00)
--- NOTE | 2021-11-21 10:26 | Progress Note ---
Subjective - Reason for Consult Consult date: 11/21/21 Reason for consult: psychosis - Chief Complaint Chief complaint: The patient was seen today. She still endorses voices telling her to harm herself. She does report feeling a little better. The patient will be given Invega sustenna 234mg IM x 1 today to see if this will increase compliance and limit ER visits. Will continue to monitor and recommend inpatient treatment at this point. REVIEW OF SYSTEMS Constitutional: Negative for weight loss ENT: Negative for stridor Respiratory: Negative for cough or hemoptysis All other systems reviewed and are negative MENTAL STATUS EXAMINATION General Appearance and Behavior: Age appropriate, good hygiene, wearing appropriate clothes. anxious, cooperative Cooperation: cooperative Psychomotor Behavior: Psychomotor normal Mood: depressed Affect and affective range: congruent with stated mood Thought Process: illogical Thought Content: Hallucinations/ suicidal Speech: Normal volume, Regular rate and rhythm, Suicidal Ideation: yes Homicidal Ideation: Denies Hallucinations: Auditory Delusions: none elicited Impulse Control: impaired Insight and Judgment: Limited Memory: limited Attention: Attentive Orientation: alert and oriented Assessment and Plan (1) Schizophrenia Treatment Plan 1013 Risperidone 1mg po BID Invega Sustenna 234mg IM Seroquel 400mg po QHS Continue home meds Medical: per primary Sitter: per primary Disposition: Recommend acute psychiatric inpatient treatment. Will follow. Thanks Case staffed with Dr. Sullivan Mental Status Exam - Vital signs Last Vital Signs Temp 97.9 F 11/20/21 22:11 Pulse 89 11/20/21 22:11 Resp 16 11/20/21 22:11 BP 100/70 11/20/21 22:11 Pulse Ox 97 11/21/21 05:12
[2021-11-21] MEDS: risperiDONE 1 MG TAB PO SCH ×2 (10:51→22:00)
--- NOTE | 2021-11-21 11:22 | Event Note ---
Date: 11/21/21 vss no distress, no problems overnight , no distress , 1013 , awaiting transfer to [facility] facility
[2021-11-21] MEDS: QUEtiapine 200 MG TAB PO SCH (22:00)
[2021-11-22 00:30] VITALS: BP 130/79
--- NOTE | 2021-11-22 10:36 | Progress Note ---
Subjective - Reason for Consult Consult date: 11/22/21 Reason for consult: hallucinations - Chief Complaint Chief complaint: The patient was seen today. She says she's doing better, but still hearing the voices. She denies SI/HI. She says "no, but the voices are still there. I hear them all the time." The patient was giving Invega Sustenna yesterday to see if she would benefit from a long acting in conjunction with her oral meds. Will no longer recommend inpatient treatment, as this patient is chronic, and non- compliant. Will have the patent follow up with outpatient to continue med management. REVIEW OF SYSTEMS Constitutional: Negative for weight loss ENT: Negative for stridor Respiratory: Negative for cough or hemoptysis All other systems reviewed and are negative MENTAL STATUS EXAMINATION General Appearance and Behavior: Age appropriate, good hygiene, wearing appropriate clothes. calm, cooperative Cooperation: cooperative Psychomotor Behavior: Psychomotor normal Mood: better Affect and affective range: congruent with stated mood Thought Process: circumstantial Thought Content: Hallucinations Speech: Normal volume, Regular rate and rhythm, Suicidal Ideation: Denies Homicidal Ideation: Denies Hallucinations: Auditory Delusions: none elicited Impulse Control: impaired Insight and Judgment: Limited Memory: limited Attention: Attentive Orientation: alert and oriented Assessment and Plan (1) Schizophrenia Treatment Plan d/c 1013 Risperidone 1mg po BID Invega Sustenna 156mg IM monthly, next dose due on or around December 21 Seroquel 400mg po QHS Medical: per primary Sitter: per primary Disposition: Do not recommend acute psychiatric inpatient treatment. The patient understands that if SI/HI are to arise she is to seek immediate assistance The sprayer insecticide to give all necessary resources The patient to follow up in 7 to 14 days with psych upon discharge from hospital Will sign off. Thanks Case staffed with Dr. Sullivan Mental Status Exam - Vital signs Last Vital Signs Temp 98.6 F 11/22/21 08:25 Pulse 70 11/22/21 08:25 Resp 18 11/22/21 08:25 BP 130/79 11/22/21 08:25 Pulse Ox 98 11/22/21 09:37
--- NOTE | 2021-11-22 12:12 | Emergency Department Report ---
Blank Doc - Documentation Documentation: 51-year-old female with schizophrenia cleared for discharge with discontinuation of 1013 by mental health. Vital signs and labs reviewed. Patient will be discharged with prescription and and follow up
[2021-11-22] MEDS: risperiDONE 1 MG TAB PO SCH (12:51)
== END 2021-11-22 12:57 | disposition home or self-care (01) ==
LOC: ED 17:45 → EEVIPCON 17:45 → ED 11-22 12:57
DX: R45.851 Suicidal ideations (principal); Z20.822 Contact with and (suspected) exposure to COVID-19; I10 Essential (primary) hypertension; E11.9 Type 2 diabetes mellitus without complications; F17.200 Nicotine dependence, unspecified, uncomplicated
CPT/HCPCS: 36415; 80048; 85025; 96372; 99284; J2426; U0003; 80320; G0480